=== PATIENT | female | born 1950 | race Caucasian/White ===

== ENCOUNTER 2022-09-26 15:58 | Observation (INO) | payer MEDICARE, SELFPAY ==
--- NOTE | ~2022-09-26 | CT_ITS ---
EXAMINATION: CT brain wo con DATE: 09/26/2022 19:29 INDICATION: weakness, hx of brain bleed . TECHNIQUE: Computed tomography (CT) of the head was performed without intravenous contrast. The mA wa s adjusted according to patient size. Iterative reconstruction technique was employed. The dose-lengt h product was 605.33 mGy-cm. COMPARISON: None. FINDINGS: No acute intracranial hemorrhage or extra-axial fluid collection. No hydrocephalus, mass, or herniation. No acute ischemic infarct. Unremarkable dural venous sinus attenuation. No acute osseous abnormality. The aerated spaces are clear. Moderate atrophy and chronic white matter change. Atherosclerotic intracranial calcification. Bilater al lens replacements. IMPRESSION: No acute intracranial process. Reviewed, dictated and finalized at location K.
--- NOTE | ~2022-09-26 | XR_ITS ---
EXAMINATION: XR chest 1V portable Exam Date/Time: 09/26/2022 17:55 CDT HISTORY: weakness, unsteady gait; hx of dementia/alzheimer's Comparison: None. RESULT: Lines, tubes, and devices: None. Lungs and pleura: Senescent change, otherwise clear. Cardiomediastinal silhouette: Stable. Other: No acute osseous or upper abdominal finding. Old right clavicular fracture, healed in deformi ty. IMPRESSION: No acute cardiopulmonary process. Reviewed, dictated and finalized at location K.
--- NOTE | ~2022-09-26 | MR_ITS ---
EXAMINATION: MR brain/brain stem wo/w con DATE: 09/27/2022 15:44 INDICATION: Cerebrovascular accident. Aphasia. TECHNIQUE: Magnetic resonance imaging (MRI) of the brain and brainstem was performed without and with 13 mL MultiHance intravenous contrast. COMPARISON: Head CT 09/26/2022 FINDINGS: There is no intracranial hemorrhage, acute infarction, or abnormal intracranial mass lesion . There are scattered areas of nonspecific increased T2-weighted signal intensity in the cerebral whi te matter, which is within normal limits for the patient's age. The ventricles are normal in size. Th ere is mild mucosal thickening in the ethmoid sinuses. There are likely changes of ocular lens replac ement surgeries. There is a trace right mastoid effusion. IMPRESSION: 1. Normal aging brain. Reviewed, dictated and finalized at location A. IMPRESSION: 1. Normal aging brain.
--- NOTE | ~2022-09-26 | CT_ITS ---
EXAMINATION: CTA brain carotid DATE: 09/26/2022 21:30 INDICATION: aphasia, dysarthria TECHNIQUE: Computed tomographic angiography (CTA) of the head and neck was performed with 100 mL Omni paque-350 intravenous contrast. Automated exposure control and iterative reconstruction technique wer e employed. The dose-length product was 958.12 mGy-cm. Maximum intensity projection and volume render ed 3D-reconstructions were created by the technologist on a separate workstation. COMPARISON: CT brain, same date. FINDINGS: CTA HEAD: No large vessel occlusion, aneurysm, high flow vascular malformation, nidus or extravasation. Patent cerebral veins. Symmetric parenchymal enhancement. Persistent origin of the right WATER VALVE MECHANIC. Calcific ations of the carotid siphons, without significant stenosis. CTA NECK: Aortic arch and proximal great vessels: Mild plaque at the visualized arch. Normal arch anatomy. Right common carotid, carotid bifurcation, and internal carotid artery: No plaque.There is 0% stenosi s of the proximal right internal carotid artery relative to normal distal artery lumen diameter (NASC ET criteria). Left common carotid, carotid bifurcation, and internal carotid artery: Mild calcified plaque.There is 0% stenosis of the proximal left internal carotid artery relative to normal distal artery lumen diam eter (NASCET criteria). Vertebral arteries: No significant plaque or stenosis. Left vertebral artery is dominant. Other findings: Patulous, fluid-filled esophagus. IMPRESSION: No large vessel occlusion. No significant carotid or vertebral stenosis. Reviewed, dictated and finalized at location K.
--- NOTE | ~2022-09-26 | XR_ITS ---
EXAMINATION: XR lumbar puncture diagnostic DATE: 09/28/2022 11:38 INDICATION: Autoimmune encephalitis. TECHNIQUE: The procedure including the risks, benefits, and alternatives was discussed with the patie nt. Risks discussed included spinal headache, cerebrospinal fluid leak, bleeding, and infection. The patient understood the risks and agreed to proceed. A timeout was performed to verify the patient' s name, date of , and procedure to be performed. The skin overlying the L4-L5 level was prepped and draped in usual sterile fashion. Subcutaneous 1% lidocaine was used for local anesthesia. A 20 gauge spinal needle was advanced under fluoroscopic guidance. The needle was removed and the entry s ite was cleaned and dressed. There were no immediate complications. Fluoroscopy exposure time was 0. 1 minutes. The total number of images was 1. FINDINGS: Real-time fluoroscopy demonstrates the needle at the L4-L5 level. The opening pressure was 11 cm water (Normal range is variably defined as 6-20 cm water and up to 25 cm water in obese patient s. Pressure >25 cm water is one of the modified Dandy criteria for idiopathic intracranial hypertensi on). 13 mL of clear, colorless fluid was collected in 4 tubes. IMPRESSION: 1. Successful fluoro-guided lumbar puncture. Reviewed, dictated and finalized at location A.
[2022-09-26 15:58] VITALS: BP 161/74; PULSE 69; RESP 15; TEMP 36.2; O2SAT 95
[2022-09-26 16:09] LABS: Glucose Point of Care 68 mg/dl (65-105)
[2022-09-26 17:05] VITALS: BP 118/73; PULSE 65; RESP 17; O2SAT 100
[2022-09-26 17:08] LABS: Glucose Point of Care 104 mg/dl (65-105)
--- NOTE | 2022-09-26 17:53 | ECG_ITS ---
Measurements Intervals [place] Rate: 59 P: 28 MA: 221 QRS: 26 QRSD: 81 T: 19 QT: 419 QTc: 417 Interpretive Statements SINUS BRADYCARDIA WITH FIRST DEGREE AV BLOCK WITH OCCASIONAL VENTRICULAR PREMATURE COMPLEXES NONSPECIFIC T-WAVE ABNORMALITY ABNORMAL ECG NO PREVIOUS ECG AVAILABLE FOR COMPARISON Electronically Signed On 09-27-2022 9:18:25 CDT by Lex Petersen M.D.
--- NOTE | 2022-09-26 17:55 | ED.GENADULT ---
HPI - General Adult General Chief complaint: Weakness <Aidee Zamudio PA-C - Last Filed: 09/27/22 00:20> Stated complaint: unsteady gait x 2-3 days <Aidee Zamudio PA-C - Last Filed: 09/27/22 00:20> Time Seen by Provider: 09/26/22 17:04 <Aidee Zamudio PA-C - Last Filed: 09/27/22 00:20> History of Present Illness HPI narrative: 72-year-old female with a history of a spontaneously 8 millimeter brain bleed in December, dementia, MDD with psychosis, cognitive delay reports via EMS from [facility] with her daughter/POA at bedside. Patient's daughter states that yesterday the [facility] facility reported that the patient was having an unsteady gait, worse than her usual. States today the patient asked for a wheelchair to ambulate because she was unable to, [facility] called her PCP and advised to send the patient to the ED for further evaluation. Patient's daughter reports that the patient had a spontaneous a millimeter brain bleed in December, had repeat scans 4 to 6 weeks later which showed it had reduced to 4 mm. She had an MRI performed at the time which showed a normal aging brain other than the bleed. She has established with neurosurgery at [facility] and neurology at [facility]. She was admitted to [place] 3 weeks ago for self-harm. Family states that the patient bangs her right arm when she is frustrated at times does cause fractures, states she had times becomes physically aggressive. She has been recently diagnosed with MDD with psychosis and was started on a new psychiatry medication 3 weeks ago, medication unknown. Patient's daughter states that the patient has had aphasia for the past year and a half, however it is significantly worsened the past couple of days, states she is more garbled . She also reports worsening dysarthria in the past few days as well as fatigue. Per the daughter, the patient is a DNR/DNI. She is ANO x 2 at baseline. Upon questioning the patient, she does report that she fell and hurt her head , but is unsure when this occurred. The daughter is unaware as well. Patient states she normally ambulates without a walker or assistance. The patient denies chest pain, shortness of breath, headache, vision changes, focal numbness or weakness, abdominal pain, nausea or vomiting, diarrhea, dysuria, pain anywhere, fever. <Aidee Zamudio PA-C - Last Filed: 09/27/22 00:20> Related Data Home medications: Home Medications Medication Instructions Recorded Confirmed atorvastatin 20 mg tablet 20 mg PO DAILY 09/27/22 09/27/22 buspirone 5 mg tablet 5 mg PO BID 09/27/22 09/27/22 donepezil 10 mg tablet 10 mg PO HS 09/27/22 09/27/22 fluoxetine 20 mg capsule 20 mg PO DAILY 09/27/22 09/27/22 losartan 50 mg-hydrochlorothiazide 1 tablet PO DAILY 09/27/22 09/27/22 12.5 mg tablet <GUIDO Titus Last Filed: 09/27/22 00:20> Allergies/adverse reactions: Allergies Allergy/AdvReac Type Severity Reaction Status Date / Time cefuroxime [From Ceftin] AdvReac Swelling Verified 09/26/22 16:11 of Lip/Tongue/Throat lisinopril AdvReac Swelling Verified 09/26/22 16:11 of Lip/Tongue/Throat <Aidee Zamudio PA-C - Last Filed: 09/27/22 00:20> Review of Systems Review of Systems: CONSTITUTIONAL: Denies fever, chills EYES: Denies visual changes, redness, or discharge. ENT: Denies rhinorrhea, congestion, sore throat, or otalgia. CARDIOVASCULAR: Denies chest pain, palpitations, or edema. RESPIRATORY: Denies cough or dyspnea. GASTROINTESTINAL: Denies abdominal pain, nausea, vomiting, or diarrhea. GENITOURINARY: Denies dysuria or hematuria. SKIN: Denies rash or itching. MUSCULOSKELETAL: Denies back pain, joint pain, or myalgia. NEUROLOGIC: See HPI PSYCHIATRIC: Denies anxiety or depression. <Aidee Zamudio PA-C - Last Filed: 09/27/22 00:20> [facility] Family History Family History: Family History (Updated 09/27/22 @ 02:45 by Margarita Yan
[2022-09-26 18:18] LABS: Basophils Percent Auto 0.3 % (0.2-1.2); Eosinophils Absolute Auto 0.1 K/mm3 (0-0.3); Eosinophils Percent Auto 1.2 % (0-4.4); Hematocrit 39.3 % (37.0-47.0); Hemoglobin 12.9 g/dL (12.0-15.0); Immature Granulocyte Absolute 0.02 K/mm3 (0.00-0.031); Immature Granulocyte Percent A 0.2 % (0-0.5); Lymphocytes Absolute Auto 2.86 K/mm3 (0.9-3.2); Lymphocytes Percent Auto 31.6 % (18.3-44.2); Mean Corpuscular HGB Conc 32.8 g/dl (32-36); Mean Corpuscular Hemoglobin 31.9 pg (26-34); Mean Platelet Volume 10.8 fl (7.4-10.4); Monocytes Absolute Auto 0.8 K/mm3 (0.1-0.6); Monocytes Percent Auto 8.3 % (2.6-8.5); Neutrophils Absolute Auto 5.3 K/mm3 (1.3-6.7); Neutrophils Percent Auto 58.4 % (45.5-73.1); Platelet Count Result 215 k/mm3 (150-375); Red Blood Count 4.05 M/mm3 (4.2-5.4); Red Cell Distribution Width 12.7 % (11.5-14.5); White Blood Count 9.1 K/mm3 (4.5-10.0)
[2022-09-26 18:22] LABS: Alanine Aminotransferase 26 U/L (6-35); Albumin Level 4.1 g/dL (3.5-5.1); Alkaline Phosphatase 75 U/L (38-126); Anion Gap 6 mmol/L (8-16); Aspartate Amino Transferase 35 U/L (14-36); Bilirubin,Total 0.3 mg/dL (0.2-1.3); Blood Urea Nitrogen 17 mg/dL (7-17); Calcium 9.4 mg/dL (8.4-10.2); Carbon Dioxide 31 mmol/L (22-30); Chloride 101 mmol/L (98-107); Estimated CRCL calculation 55 ml/min; Estimated Glomerular Filt Rate > 60; Glucose 100 mg/dL (65-110); Potassium 3.5 mmol/L (3.4-5.0); Sodium 138 mmol/L (137-145)
[2022-09-26 18:30] LABS: INR 0.9
[2022-09-26 18:31] LABS: Partial Thromboplastin Time 27.6 SECONDS (22.3-36.8)
[2022-09-26 18:33] LABS: Troponin I < 0.012 ng/mL (0.000-0.034)
[2022-09-26 19:58] VITALS: BP 132/82; PULSE 60; RESP 17; O2SAT 99
[2022-09-26 20:06] LABS: Appearance Urine Clear (Clear); Bacteria Urine None Seen /hpf; Bilirubin Urine Negative (Negative); Blood Urine Negative (Negative); Color Urine Yellow (Yellow); Glucose Urine UA Negative (Negative); Ketones Urine Negative (Negative); Leukocyte Esterase Ur Trace LEU/UL (Negative); Nitrate Urine Negative (Negative); Non Pathogenic Casts 0-2; Protein Urine Negative (Negative); RBC Urine 0-2 /hpf (0-2); Specific Grav Ur 1.012 (1.001-1.035); Squamous Epithelial Cell Urine None seen /hpf (Few); WBC Urine 0-5 /hpf; pH Urine 7.5 (5.0-9.0)
[2022-09-26 20:08] LABS: Add Urine Microscopic? YES
[2022-09-26 20:19] LABS: Amphetamine Screen Urine Negative (Negative); Barbiturate Screen Urine Negative (Negative); Benzodiazepines Screen Urine Negative (Negative); Cannabinoid Screen Urine Negative (Negative); Cocaine Screen Urine Negative (Negative); Methadone Screen Urine Negative (Negative); Opiate Screen Urine Negative (Negative); Phencyclidine Screen Urine Negative (Negative)
[2022-09-26 22:08] VITALS: BP 132/71; PULSE 54; RESP 15; O2SAT 97
--- NOTE | 2022-09-26 23:12 | PM.IMHP ---
H&P: HPI History of Present Illness Date/Time: 09/26/22 23:12 Chief Complaint: speech disturbance Narrative: This is a 72-year-old female with past medical history significant for brain bleed, cognitive delay, dysarthria. Patient lives at [facility] was brought to the emergency room for evaluation due to unsteady gait and worsening of speech disturbance. In emergency room preliminary workup was essentially nonrevealing. Patient is unable to give much history but she knows that she is at [facility] and she is here because of her speech. Preliminary workup was essentially nonrevealing. At the time of my visit patient symptoms had resolved. EXAMINATION:? XR chest 1V portable Exam Date/Time:? 09/26/2022 17:55 CDT HISTORY: weakness, unsteady gait; hx of dementia/alzheimer's ? Comparison:? None. RESULT: Lines, tubes, and devices:? None. Lungs and pleura:? Senescent change, otherwise clear. Cardiomediastinal silhouette:? Stable. Other:? No acute osseous or upper abdominal finding. Old right clavicular fracture, healed in deformity. ? IMPRESSION: No acute cardiopulmonary process. EXAMINATION: CT brain wo con DATE: 09/26/2022 19:29 INDICATION: weakness, hx of brain bleed . TECHNIQUE: Computed tomography (CT) of the head was performed without intravenous contrast. The mA was adjusted according to patient size. Iterative reconstruction technique was employed. The dose-length product was 605.33 mGy-cm. COMPARISON: None. FINDINGS: No acute intracranial hemorrhage or extra-axial fluid collection. No hydrocephalus, mass, or herniation. No acute ischemic infarct. Unremarkable dural venous sinus attenuation. No acute osseous abnormality. The? aerated spaces are clear. Moderate atrophy and chronic white matter change. Atherosclerotic intracranial calcification. Bilateral lens replacements. IMPRESSION:? No acute intracranial process. EXAMINATION: CTA brain carotid DATE: 09/26/2022 21:30 INDICATION: aphasia, dysarthria TECHNIQUE: Computed tomographic angiography (CTA) of the head and neck was performed with 100 mL Omnipaque-350 intravenous contrast. Automated exposure control and iterative reconstruction technique were employed. The dose-length product was 958.12 mGy-cm. Maximum intensity projection and volume rendered 3D-reconstructions were created by the technologist on a separate workstation. COMPARISON: CT brain, same date. FINDINGS: CTA HEAD: No large vessel occlusion, aneurysm, high flow vascular malformation, nidus or extravasation. Patent cerebral veins. Symmetric parenchymal enhancement. Persistent origin of the right ROPE CUTTER. Calcifications of the carotid siphons, without significant stenosis. CTA NECK: Aortic arch and proximal great vessels: Mild plaque at the visualized arch. Normal arch anatomy. Right common carotid, carotid bifurcation, and internal carotid artery: No plaque.There is 0% stenosis of the proximal right internal carotid artery relative to normal distal artery lumen diameter (NASCET criteria).? Left common carotid, carotid bifurcation, and internal carotid artery: Mild calcified plaque.There is 0% stenosis of the proximal left internal carotid artery relative to normal distal artery lumen diameter (NASCET criteria). Vertebral arteries: No significant plaque or stenosis. Left vertebral artery is dominant. Other findings: Patulous, fluid-filled esophagus. IMPRESSION: No large vessel occlusion. Review of Systems Review of Systems: Speech disturbance ROS unobtainable: Yes unobtainable due to medical condition ( continue delay) [facility] Family History Family History (Updated 09/27/22 @ 02:45 by Margarita Fernandez RN) Other Unknown family medical history Social History Social History Smoking packs per day: 0.5 Smoking cigarettes per day: 10.0 Smoking status: F
[2022-09-27] VITALS (9 sets, daily range): BP systolic 89–134; BP diastolic 50–72; PULSE 56–91; RESP 14–16; TEMP 36–36.6; O2SAT 97–100
--- NOTE | 2022-09-27 01:48 | ADMGEN ---
This patient, Dana Emmanuel, was admitted to [facility] Surg Room 306-02. Patient/family oriented to hospital policies and general routines including ID bracelet, bed and alarms, visiting hours, pain management, procedures, bathroom and other care routines, personal items, smoking policy, room service/diet, and visiting hours. Information on how to activate the Rapid Response Team has been discussed. Patient/Family are encouraged to report perceived risks to care and to ask questions if they do not understand what they are told or what they should do.
--- NOTE | 2022-09-27 07:50 | PM.IMPN ---
Progress Note: A&P Assessment and Plan (1) Aphasia: Code(s): R47.01 - Aphasia Status: Acute Assessment and Plan: admit to [place] neurochecks q.4 hours CTA reviewed MRI in a.m., awaiting results neurology consult appreciate recommendations Obtain MRI brain w/o contrast Check TSH, Folate, B12 level, GQ1b antibody If MRI is unrevealing, consider LP for infectious/autoimmune etiology and sending for autoimmune encephalitis panel (2) Dysarthria: Code(s): R47.1 - Dysarthria and anarthria Status: Acute Assessment and Plan: chronic (3) Weakness generalized: Code(s): R53.1 - Weakness Status: Acute Assessment and Plan: no focal deficit PT OT consult Low SBP this afternoon. Will hold further antihypertensives and give 1 x 500 ml bolus now. Subjective Date/time seen: 09/27/22 07:50 Interval history: Narrative: ?This is a 72-year-old female with past medical history significant for brain bleed, cognitive delay, dysarthria.? Patient lives at [facility] was brought to the emergency room for evaluation due to unsteady gait and worsening of? speech disturbance.? In emergency room preliminary workup was essentially nonrevealing.? Patient is unable to give much history but she knows that she is at [facility] and she is here because of? her speech.? Preliminary workup was essentially nonrevealing.? At the time of my visit patient symptoms had resolved. Interval history: 09/27: Patient seen at bedside appearing comfortable and in no acute distress. She says that she is here because of weakness. She does not feel like her speech is changed. Unsure of her baseline but her responses are delayed with garbled speech at times. She is A&O x4 for my assessment. Cranial nerves 2-12 are intact. She does have nystagmus. She denies pain, chest pain, shortness of breath, nausea, vomiting, or diarrhea. Awaiting MRI brain w/o contrast per neurology recommendations. 1500-Nursing called with a low BP of 89/56 (67), HR 63. Asymptomatic as far as they can tell given patient's intermittent confusion. Reports that patient has been eating and drinking with tech encouragement. Will give 1 x bolus of 500 ml now. Review of Systems Review of Systems: All systems reviewed & are unremarkable except as noted in HPI and below Exam Narrative: General: well-nourished, elderly appearing 72-year-old female, sitting up in bed, comfortable, NARD Neuro: awake, alert and oriented x4, speech delayed and garbled at times, no focal neuro deficits noted HEENMT: normocephalic, atraumatic, EOMI, nystagmus present, sclerae anicteric, moist oral mucosa Respiratory: Clear to auscultation bilaterally without crackles, rhonchi or wheezes, nonlabored breathing Cardio: regular rate, regular rhythm with S1-S2 Abdomen: nondistended, normoactive bowel sounds, soft, nontender to palpation Extremities: no edema, erythema, or tenderness to palpation, DP pulses 2+ bilaterally Skin: no rashes or lesions, warm and dry Psych: appropriate mood and affect Objective Data Vital Signs Vital Signs: Vital Signs - 24 hr 09/26/22 15:58 09/26/22 17:05 09/26/22 19:58 Temperature 97.1 F L Pulse Rate 69 65 60 Respiratory Rate 15 17 17 Blood Pressure 161/74 H 118/73 132/82 Pulse Oximetry 95 100 99 Oxygen Delivery Room Air 09/26/22 22:08 09/27/22 01:31 09/27/22 04:28 Temperature Pulse Rate 54 L 59 L 59 L Respiratory Rate 15 16 16 Blood Pressure 132/71 134/71 Pulse Oximetry 97 98 98 Oxygen Delivery Room Air 09/27/22 01:45 09/27/22 06:00 Temperature 96.8 F L 96.8 F L Pulse Rate 56 L 72 Respiratory Rate 14 14 Blood Pressure 130/72 116/63 Pulse Oximetry 100 98 Oxygen Delivery Intake/Output Intake/Output: Intake & Output 09/24/22 09/25/22 09/26/22 09/27/22 23:59 23:59 23:59 23:59 Intake Total 50 Balance 50 Meds/Results Medications: Active Medications G
[2022-09-27 08:45] LABS: Basophils Percent Auto 0.3 % (0.2-1.2); Eosinophils Absolute Auto 0.1 K/mm3 (0-0.3); Eosinophils Percent Auto 1.1 % (0-4.4); Hemoglobin 13.3 g/dL (12.0-15.0); Immature Granulocyte Absolute 0.01 K/mm3 (0.00-0.031); Immature Granulocyte Percent A 0.2 % (0-0.5); Lymphocytes Absolute Auto 2.14 K/mm3 (0.9-3.2); Lymphocytes Percent Auto 32.5 % (18.3-44.2); Mean Corpuscular HGB Conc 33.3 g/dl (32-36); Mean Corpuscular Volume 96.2 fl (80-100); Mean Platelet Volume 10.2 fl (7.4-10.4); Monocytes Absolute Auto 0.6 K/mm3 (0.1-0.6); Monocytes Percent Auto 9.4 % (2.6-8.5); Neutrophils Absolute Auto 3.7 K/mm3 (1.3-6.7); Neutrophils Percent Auto 56.5 % (45.5-73.1); Platelet Count Result 214 k/mm3 (150-375); Red Blood Count 4.16 M/mm3 (4.2-5.4); Red Cell Distribution Width 12.8 % (11.5-14.5); White Blood Count 6.6 K/mm3 (4.5-10.0)
[2022-09-27 08:59] LABS: Alanine Aminotransferase 25 U/L (6-35); Alkaline Phosphatase 76 U/L (38-126); Anion Gap 6 mmol/L (8-16); Aspartate Amino Transferase 33 U/L (14-36); Bilirubin,Total 0.6 mg/dL (0.2-1.3); Blood Urea Nitrogen 12 mg/dL (7-17); Calcium 9.3 mg/dL (8.4-10.2); Carbon Dioxide 29 mmol/L (22-30); Chloride 101 mmol/L (98-107); Estimated CRCL calculation 55 ml/min; Estimated Glomerular Filt Rate > 60; Glucose 83 mg/dL (65-110); Potassium 3.7 mmol/L (3.4-5.0); Sodium 136 mmol/L (137-145)
--- NOTE | 2022-09-27 09:21 | WPDNEURCNPN ---
Assessment and Plan Assessment and plan (1) Aphasia: Code(s): R47.01 - Aphasia Status: Acute (2) Dysarthria: Code(s): R47.1 - Dysarthria and anarthria Status: Acute (3) Weakness generalized: Code(s): R53.1 - Weakness Status: Acute Plan Dana Emmanuel is a 72 year old female with a history of prior brain bleed, dementia, psychosis, presenting due to worsening gait and speech changes. Etiology is unclear. There is no obvious underlying infection. She is not on any sedating medications and she lives in a usp, so polypharmacy seems less likely. Considering stroke. Mental status appears to be at baseline. Also considering [place] encephalitis. - Obtain MRI brain w/o contrast - Check TSH, Folate, B12 level, GQ1b antibody - If MRI is unrevealing, consider LP for infectious/autoimmune etiology and sending for autoimmune encephalitis panel Consult date: 09/27/22 Reason for consult: Altered mental status, aphasia HPI: Dana Emmanuel is a 72 year old female with a history of prior brain bleed, dementia, psychosis, presenting due to worsening gait and speech changes. Patient lives at [facility]. On day of presentation, she was having more difficulty walking so she asked for a wheelchair. At some point she reported that she fell and hit her head, but family was not aware of this and patient is not able to give more details about this either. At baseline she has aphasia, but family feels that her speech is more garbled and her dysarthria is worse as well. At baseline she is AOx2. Due to the change in her walking ability and mental status, she was brought to [place] ED. Work-up was mostly unrevealing. UA was negative for UTI. UDS was negative as well. CT head was read as moderate atrophy but no acute changes. CTA brain/carotid was negative for stenosis or occlusion. Patient was admitted for further work-up of her symptoms. Patient reports that her difficulty ambulating has only been going on for about a day or so. She feels that she is still not back to baseline with her walking. She denies any numbness or weakness in the lower extremities. Review of Systems Constitutional: Constitutional: Denies chills, Denies fever(s) and Denies weight loss Eyes: Eyes: Denies diplopia and Denies loss of vision ENT: Denies dizziness, Denies hearing loss and Denies tinnitus Cardiovascular: Cardiovascular: Denies chest pain, Denies syncope and Denies dyspnea Respiratory: Respiratory: Denies cough, Denies dyspnea and Denies wheezing Gastrointestinal: Gastrointestinal: Denies abdominal pain, Denies change in bowel habits and Denies vomiting Genitourinary: Genitourinary: Denies urinary incontinence Musculoskeletal: Musculoskeletal: Denies arthralgias and Denies joint swelling Integumentary/Breasts: Skin/Breast: Denies new lesions and Denies rash Neurologic: Reports as per HPI, Denies dizziness, Denies syncope and Denies loss of vision Psychiatric: Psychiatric: Reports anxiety and Reports depression Endocrine: Endocrine: Denies cold intolerance and Denies heat intolerance Hematologic/Lymphatic: Hematologic/Lymphatic: Denies easy bleeding and Denies easy bruising Allergic/Immunologic: Allergic/Immunologic: Denies no additional allergic/immunologic complaints and Denies wheezing [facility] Family History Family History (Updated 09/27/22 @ 02:45 by Margarita Fernandez RN) Other Unknown family medical history Social History Social History Smoking packs per day: 0.5 Smoking cigarettes per day: 10.0 Smoking status: Former smoker Tobacco type: cigarettes Alcohol intake: former Substance use: never Lack of Transportation: No Lack of Food: Never True Current Housing: I Have Housing Concerned About Future Housing: No Difficulty Paying Gas/Electric Bills: No Difficulty Paying for Meds: No Currently Unemploy
[2022-09-27] MEDS: LOSARTAN POTASSIUM 50 MG TABLET PO (10:12)
[2022-09-27] MEDS: ATORVASTATIN 20 MG TABLET PO (10:12)
[2022-09-27] MEDS: ASPIRIN 81 MG ENTERIC TABLET PO (10:12)
[2022-09-27] MEDS: busPIRone HCL 5 MG TABLET PO ×2 (10:12→18:14)
[2022-09-27] MEDS: hydroCHLOROthiazide 12.5 MG CAPSULE PO (10:12)
[2022-09-27] MEDS: FLUoxetine HCL 20 MG CAPSULE PO (10:12)
--- NOTE | 2022-09-27 12:11 | PCPTNOTE ---
On 09/27/22, the student, BHAVIK Kessler, provided care and completed [facility] documentation on this patient. I have reviewed the student's documentation and agree with the findings.
[2022-09-27] MEDS: SODIUM CHLORIDE 0.9% IV 500 ML IV CONT (16:56)
--- NOTE | 2022-09-27 19:51 | PC.NURSE ---
Pt has been confused today. Pt had MRI and tolerated well. Pt denies any pain and expresses no needs at this time. Pt continued to be monitored for any changes in status. Pt blood pressure was low, provider notified and 500 mL bolus was started.
[2022-09-27] MEDS: DONEPEZIL HCL 10 MG TABLET PO (21:32)
[2022-09-28] VITALS (8 sets, daily range): BP systolic 100–143; BP diastolic 51–71; PULSE 45–75; RESP 12–19; TEMP 35.8–36.9; O2SAT 95–99
[2022-09-28 06:19] LABS: Basophils Percent Auto 0.4 % (0.2-1.2); Eosinophils Absolute Auto 0.1 K/mm3 (0-0.3); Eosinophils Percent Auto 1.7 % (0-4.4); Hematocrit 37.9 % (37.0-47.0); Hemoglobin 12.3 g/dL (12.0-15.0); Immature Granulocyte Absolute 0.02 K/mm3 (0.00-0.031); Immature Granulocyte Percent A 0.3 % (0-0.5); Lymphocytes Absolute Auto 2.53 K/mm3 (0.9-3.2); Lymphocytes Percent Auto 36.9 % (18.3-44.2); Mean Corpuscular HGB Conc 32.5 g/dl (32-36); Mean Corpuscular Hemoglobin 31.2 pg (26-34); Mean Corpuscular Volume 96.2 fl (80-100); Monocytes Absolute Auto 0.6 K/mm3 (0.1-0.6); Monocytes Percent Auto 8.6 % (2.6-8.5); Neutrophils Absolute Auto 3.6 K/mm3 (1.3-6.7); Neutrophils Percent Auto 52.1 % (45.5-73.1); Red Blood Count 3.94 M/mm3 (4.2-5.4); Red Cell Distribution Width 12.6 % (11.5-14.5); White Blood Count 6.9 K/mm3 (4.5-10.0)
[2022-09-28 06:36] LABS: Alanine Aminotransferase 23 U/L (6-35); Albumin Level 3.7 g/dL (3.5-5.1); Alkaline Phosphatase 59 U/L (38-126); Anion Gap 4 mmol/L (8-16); Aspartate Amino Transferase 32 U/L (14-36); Bilirubin,Total 0.5 mg/dL (0.2-1.3); Blood Urea Nitrogen 17 mg/dL (7-17); Calcium 8.7 mg/dL (8.4-10.2); Carbon Dioxide 30 mmol/L (22-30); Chloride 102 mmol/L (98-107); Estimated CRCL calculation 55 ml/min; Estimated Glomerular Filt Rate > 60; Glucose 79 mg/dL (65-110); Potassium 3.5 mmol/L (3.4-5.0); Sodium 136 mmol/L (137-145)
[2022-09-28 07:35] LABS: Folic Acid 17.5 ng/mL (2.76->20)
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
[2022-09-28] MEDS: busPIRone HCL 5 MG TABLET PO ×2 (08:49→16:43)
[2022-09-28] MEDS: ATORVASTATIN 20 MG TABLET PO (08:49)
[2022-09-28] MEDS: ASPIRIN 81 MG ENTERIC TABLET PO (08:49)
[2022-09-28] MEDS: LOSARTAN POTASSIUM 50 MG TABLET PO (08:49)
[2022-09-28] MEDS: FLUoxetine HCL 20 MG CAPSULE PO (08:49)
--- NOTE | 2022-09-28 11:28 | PCOTNOTE ---
Patient just returned from having a procedure done (spinal tap) and is required to lay flat for 2 hours. Per RN, can try back at a later time.
[2022-09-28 12:06] LABS: Total Protein CSF 54 mg/dL (12-60)
[2022-09-28 12:11] LABS: Glucose CSF 58 mg/dL (40-70)
[2022-09-28 12:16] LABS: Appearance CSF Clear (Clear); CSF source CSF; Color CSF Colorless (Colorless); Nucleated Cell CSF 2 /uL (0-5); Red Blood Cell CSF 0 (0-2)
[2022-09-28 12:21] LABS: Monocytes CSF 6 % (15-45)
[2022-09-28 12:22] LABS: Lymphocytes CSF 94 % (40-80)
--- NOTE | 2022-09-28 13:45 | PC.NURSE ---
1220 Spinal fluis results for few wbc and no organism seen called to Naty Alvares OPERATIONS TECHNICIAN
[2022-09-28] MEDS: ACETAMINOPHEN 325 MG TABLET 650 MG PO (13:58)
--- NOTE | 2022-09-28 16:07 | P.TS_ITS ---
Transfer Discharge Sum: Prov Provider Date of admission: 09/26/22 23:14 Primary care physician: Eric Craft, PA-C Admitting clinician: Christian Dawn MD Consults: 09/26/22 23:15 Consult to Physician Routine Comment: Spoke w/ 0809/27 (, [place]) Consulting Provider: Christine Wilson scallop raker/MD group to consult: Dr. Wilson Reason for consultation: Concern for CVA Has provider been notified: Yes Receiving physician/facility: [facility] DS: Admitting Diagnosis Discharge Date 09/28/22 Admitting Diagnosis Aphasia DS: Discharge Diagnosis Discharge Diagnosis (1) Aphasia: Code(s): R47.01 - Aphasia Status: Acute Assessment and Plan: * admit to med tele * neurochecks q.4 hours * CTA reviewed * MRI shows normal aging brain * neurology consult appreciate recommendations * Obtain MRI brain w/o contrast * TSH and folate normal. Vitamin B12 mildly elevated at 950. GQ1b antibody pending. * If MRI is unrevealing, consider LP for infectious/autoimmune etiology and sending for autoimmune encephalitis panel. (2) Dysarthria: Code(s): R47.1 - Dysarthria and anarthria Status: Acute Assessment and Plan: * chronic. Hx of brain bleed, cognitive disfunction (3) Weakness generalized: Code(s): R53.1 - Weakness Status: Acute Assessment and Plan: * Per daughter, patient is normally independent and lives at assisted living. She does work with therapy at her assisted living. * PT OT consult. Rec's appreciated. SNF is recommended. * Low SBP this afternoon. Will hold further antihypertensives and give 1 x 500 ml bolus now. * Low blood pressure resolved. SBP 140s Plan LP essentially normal. No known cause of encephalitis and no neurology on service until Sunday. Contacted [facility] who has accepted the patient for transfer. Transfer Discharge Sum: Med Medications Active and Home Medications: Home Medications atorvastatin 20 mg tablet 20 mg PO DAILY 09/27/22 [History Confirmed 09/27/22] buspirone 5 mg tablet 5 mg PO BID 09/27/22 [History Confirmed 09/27/22] donepezil 10 mg tablet 10 mg PO HS 09/27/22 [History Confirmed 09/27/22] fluoxetine 20 mg capsule 20 mg PO DAILY 09/27/22 [History Confirmed 09/27/22] losartan 50 mg-hydrochlorothiazide 12.5 mg tablet 1 tablet PO DAILY 09/27/22 [History Confirmed 09/27/22] Active Medications Acetaminophen (Acetaminophen 325 Mg Tablet) 650 mg PO Q4H PRN PRN Reason: Mild Pain (1-3) or Fever Last Admin: 09/28/22 13:58 Dose: 650 mg Aspirin (Aspirin 81 Mg Enteric Tablet) 81 mg PO [facility] Last Admin: 09/28/22 08:49 Dose: 81 mg Atorvastatin Calcium (Atorvastatin 20 Mg Tablet) 20 mg PO DAILY [facility] Last Admin: 09/28/22 08:49 Dose: 20 mg Buspirone HCl (Buspirone Hcl 5 Mg Tablet) 5 mg PO BID [facility] Last Admin: 09/28/22 08:49 Dose: 5 mg Donepezil HCl (Donepezil Hcl 10 Mg Tablet) 10 mg PO [facility] Last Admin: 09/27/22 21:32 Dose: 10 mg Fluoxetine HCl (Fluoxetine Hcl 20 Mg Capsule) 20 mg PO DAILY [facility] Last Admin: 09/28/22 08:49 Dose: 20 mg Hydrochlorothiazide (Hydrochlorothiazide 12.5 Mg Capsule) 12.5 mg PO [facility] Last Admin: 09/27/22 10:12 Dose: 12.5 mg Losartan Potassium (Losartan Potassium 50 Mg Tablet) 50 mg PO [facility] Last Admin: 09/28/22 08:49 Dose: 50 mg Transfer Discharge Sum: H
--- NOTE | 2022-09-28 16:07 | PM.TDS ---
Transfer Discharge Sum: Prov Provider Date of admission: 09/26/22 23:14 Primary care physician: Eric Craft, PA-C Admitting clinician: Christian Dawn MD Consults: 09/26/22 23:15 Consult to Physician Routine Comment: Spoke w/ 0809/27 (, [place]) Consulting Provider: Christine Wilson supervisor liquid yeast/MD group to consult: Dr. Wilson Reason for consultation: Concern for CVA Has provider been notified: Yes Receiving physician/facility: [facility] DS: Admitting Diagnosis Discharge Date 09/28/22 Admitting Diagnosis Aphasia DS: Discharge Diagnosis Discharge Diagnosis (1) Aphasia: Code(s): R47.01 - Aphasia Status: Acute Assessment and Plan: admit to [facility] neurochecks q.4 hours CTA reviewed MRI shows normal aging brain neurology consult appreciate recommendations Obtain MRI brain w/o contrast TSH and folate normal. Vitamin B12 mildly elevated at 950. GQ1b antibody pending. If MRI is unrevealing, consider LP for infectious/autoimmune etiology and sending for autoimmune encephalitis panel. (2) Dysarthria: Code(s): R47.1 - Dysarthria and anarthria Status: Acute Assessment and Plan: chronic. Hx of brain bleed, cognitive disfunction (3) Weakness generalized: Code(s): R53.1 - Weakness Status: Acute Assessment and Plan: Per daughter, patient is normally independent and lives at assisted living. She does work with therapy at her assisted living. PT OT consult. Rec's appreciated. SNF is recommended. Low SBP this afternoon. Will hold further antihypertensives and give 1 x 500 ml bolus now. Low blood pressure resolved. SBP 140s Plan LP essentially normal. No known cause of encephalitis and no neurology on service until Sunday. Contacted [facility] who has accepted the patient for transfer. Transfer Discharge Sum: Med Medications Active and Home Medications: Home Medications atorvastatin 20 mg tablet 20 mg PO DAILY 09/27/22 [History Confirmed 09/27/22] buspirone 5 mg tablet 5 mg PO BID 09/27/22 [History Confirmed 09/27/22] donepezil 10 mg tablet 10 mg PO HS 09/27/22 [History Confirmed 09/27/22] fluoxetine 20 mg capsule 20 mg PO DAILY 09/27/22 [History Confirmed 09/27/22] losartan 50 mg-hydrochlorothiazide 12.5 mg tablet 1 tablet PO DAILY 09/27/22 [History Confirmed 09/27/22] Active Medications Acetaminophen (Acetaminophen 325 Mg Tablet) 650 mg PO Q4H PRN PRN Reason: Mild Pain (1-3) or Fever Last Admin: 09/28/22 13:58 Dose: 650 mg Aspirin (Aspirin 81 Mg Enteric Tablet) 81 mg PO QAM [facility] Last Admin: 09/28/22 08:49 Dose: 81 mg Atorvastatin Calcium (Atorvastatin 20 Mg Tablet) 20 mg PO DAILY [facility] Last Admin: 09/28/22 08:49 Dose: 20 mg Buspirone HCl (Buspirone Hcl 5 Mg Tablet) 5 mg PO BID [facility] Last Admin: 09/28/22 08:49 Dose: 5 mg Donepezil HCl (Donepezil Hcl 10 Mg Tablet) 10 mg PO HS [facility] Last Admin: 09/27/22 21:32 Dose: 10 mg Fluoxetine HCl (Fluoxetine Hcl 20 Mg Capsule) 20 mg PO DAILY [facility] Last Admin: 09/28/22 08:49 Dose: 20 mg Hydrochlorothiazide (Hydrochlorothiazide 12.5 Mg Capsule) 12.5 mg PO QAM [facility] Last Admin: 09/27/22 10:12 Dose: 12.5 mg Losartan Potassium (Losartan Potassium 50 Mg Tablet) 50 mg PO QAM [facility] Last Admin: 09/28/22 08:49 Dose: 50 mg Transfer Discharge Sum: Hosp Hospital Course Hospital course: Interval history: Narrative: ?This is a 72-year-old female with past medical history significant for brain bleed, cognitive delay, dysarthria.? Patient lives at [facility] was brought to the emergency room for evaluation due to unsteady gait and worsening of? speech disturbance.? In emergency room preliminary workup was essentially nonrevealing.? Patient is unable to give much history but she knows that she is at [facility] and she is here because of? her speech.? Preliminary workup was essentially nonrevealing.? At the time of my visit patient carrie
[2022-09-28 17:31] LABS: Erythrocyte Sedimentation Rate 17 mm/hr (0-20)
[2022-10-07 17:52] LABS: GM-1 Ab (IgG) <1:800 titer (<1:800); GM-1 Ab (IgM) <1:800 titer (<1:800)
[2022-10-10 13:34] LABS: Reference Lab Test Result <1:100
== END 2022-09-28 18:33 | disposition short-term general hospital (02) ==
LOC: ANHED 20:50 → ANH3MEDSUR 09-27 00:22
PROVIDERS: Nurse Practitioner Acute Care; Student in an Organized Health Care Education/Training Program; Admitting Provider Internal Medicine; Emergency Provider Physician Assistant; PCP Physician Assistant; Visit Provider Internal Medicine
DX: R47.01 Aphasia (principal); R47.1 Dysarthria and anarthria; R53.1 Weakness; G30.9 Alzheimer's disease, unspecified; F02.80 Dementia in other diseases classified elsewhere, unspecified severity, without behavioral disturbance, psychotic disturbance, mood disturbance, and anxiety; Z66 Do not resuscitate; Z87.891 Personal history of nicotine dependence; Z79.899 Other long term (current) drug therapy
CPT/HCPCS: 36415; 62328; 70450; 70496; 70498; 70553; 71045; 80053; 80307; 81001; 82607; 82746; 82945; 82948; 83520; 83605; 84157; 84443; 84484; 85025; 85610; 85652; 85730; 87070; 88108; 89051; 93005; 97161; 97165; 97530; 97535; 99285; A9270; A9577; G0378; J7040; Q9967

== ENCOUNTER 2022-10-06 23:03 | Emergency (ER) | payer MEDICARE, SELFPAY ==
--- NOTE | ~2022-10-06 | XR_ITS ---
EXAMINATION: XR knee RT 3V DATE: 10/07/2022 04:05 INDICATION: Right knee pain. TECHNIQUE: 3 views of right knee were obtained. COMPARISON: None. FINDINGS: Bone alignment is normal. No fracture. There is mild tricompartmental osteoarthritis. There is chondrocalcinosis of the menisci. There is a moderate-sized knee joint effusion. IMPRESSION: 1. Mild right knee osteoarthritis. 2. Moderate-sized right knee joint effusion. Reviewed, dictated and finalized at location A.
--- NOTE | ~2022-10-06 | XR_ITS ---
EXAMINATION: XR ankle LT min 3V DATE: 10/07/2022 04:05 INDICATION: Left ankle pain. TECHNIQUE: 4 views of left ankle were obtained. COMPARISON: None. FINDINGS: Bone alignment is normal. No fracture. There is mild midfoot osteoarthritis. There is an en thesophyte at plantar aspect of calcaneal tuberosity. IMPRESSION: 1. Mild midfoot osteoarthritis. Reviewed, dictated and finalized at location A.
[2022-10-06 23:06] VITALS: BP 107/60; PULSE 85; RESP 18; TEMP 36.7; O2SAT 100
[2022-10-07] VITALS (8 sets, daily range): BP systolic 102–131; BP diastolic 58–60; PULSE 65–78; RESP 15–20; TEMP 36.7; O2SAT 95–100
--- NOTE | 2022-10-07 05:01 | ED.GENADULT ---
HPI - General Adult General Chief complaint: Extremity Injury, Lower Stated complaint: leg pain Time Seen by Provider: 10/07/22 03:27 History of Present Illness HPI narrative: Patient 72-year-old female who presents the emergency department with chief complaint of lower extremity pain. Patient was recently admitted to our facility then transferred to [facility] and found to essentially have worsening dementia the patient was discharged back to her assisted living facility 2 days ago and today was complaining of pain in her legs. The patient ambulates using a combination of wheelchair and multiple individuals assisting her doing a walker. The patient tonight missed her call button so that her legs were hurting patient reports no fall staff reports no falls no trauma and reported no signs of injury whenever she was found. Related Data Home Medications Medication Instructions Recorded Confirmed atorvastatin 20 mg tablet 20 mg PO DAILY 09/27/22 09/27/22 buspirone 5 mg tablet 5 mg PO BID 09/27/22 09/27/22 donepezil 10 mg tablet 10 mg PO HS 09/27/22 09/27/22 fluoxetine 20 mg capsule 20 mg PO DAILY 09/27/22 09/27/22 losartan 50 mg-hydrochlorothiazide 1 tablet PO DAILY 09/27/22 09/27/22 12.5 mg tablet Allergies Allergy/AdvReac Type Severity Reaction Status Date / Time cefuroxime [From Ceftin] AdvReac Swelling Verified 09/26/22 16:11 of Lip/Tongue/Throat lisinopril AdvReac Swelling Verified 09/26/22 16:11 of Lip/Tongue/Throat Review of Systems Review of Systems: A 10 system review of systems was completed on the patient and is negative except for what is stated in the HPI. Nursing and ancillary documentation was reviewed. [facility] Family History Family History Other Unknown family medical history Social History Social History Smoking packs per day: 0.5 Smoking cigarettes per day: 10.0 Smoking status: Former smoker Tobacco type: cigarettes Alcohol intake: former Substance use: never Lack of Transportation: No Lack of Food: Never True Current Housing: I Have Housing Concerned About Future Housing: No Difficulty Paying Gas/Electric Bills: No Difficulty Paying for Meds: No Currently Unemployed: No Education: High School Diploma/GED Difficulty w/ Childcare or Family Care: No Spiritual care concerns: No Exam Narrative: GENERAL: Well-appearing, well-nourished, and in no acute distress, pleasantly confused. HEAD: Normocephalic, atraumatic. EYES: PERRLA and EOMI. ENT: Nares clear, no rhinorrhea or epistaxis. Mucous membranes moist. NECK: Supple. CHEST: Clear to auscultation. No respiratory distress. HEART: Regular rate and rhythm. No murmur heard. Normal peripheral pulses. ABDOMEN: Soft, nontender, nondistended, normal active bowel sounds. EXTREMITIES: Normal range of motion. No edema. Mild tenderness to palpation in the right knee and left ankle no deformity noted SKIN: Warm, dry, no rash. NEURO: No focal deficits. Alert and pleasantly confused PSYCH: Normal mood and affect. Course Vital Signs Vital signs: Vital Signs Temperature 36.7 C 10/06/22 23:06 Pulse Rate 85 10/06/22 23:06 Respiratory Rate 18 10/06/22 23:06 Blood Pressure 107/60 10/06/22 23:06 Pulse Oximetry 100 10/06/22 23:06 Oxygen Delivery Room Air 10/06/22 23:06 Temperature 36.7 C 10/07/22 03:14 Pulse Rate 78 10/07/22 03:14 Respiratory Rate 15 10/07/22 03:14 Blood Pressure 131/60 10/07/22 03:14 Pulse Oximetry 100 10/07/22 03:14 Oxygen Delivery Room Air 10/06/22 23:06 Medical Decision Making [facility] Narrative Medical decision making narrative: Differential diagnosis includes fracture, vascular insufficiency, cellulitis, DVT Patient's exam showed no signs of cellulitis patient had intact pulses in the lower extremit
== END 2022-10-07 05:36 ==
PROVIDERS: Emergency Provider Emergency Medicine; PCP Physician Assistant
DX: M79.605 Pain in left leg (principal); M79.604 Pain in right leg; F03.90 Unspecified dementia, unspecified severity, without behavioral disturbance, psychotic disturbance, mood disturbance, and anxiety; Z87.891 Personal history of nicotine dependence; M19.072 Primary osteoarthritis, left ankle and foot; M17.11 Unilateral primary osteoarthritis, right knee; M25.461 Effusion, right knee
CPT/HCPCS: 73562; 73610; 99284

== ENCOUNTER 2023-04-26 11:40 | Emergency (ER) | payer MEDICARE, SELFPAY ==
--- NOTE | ~2023-04-26 | CT_ITS ---
EXAMINATION: CT facial & cervical spine wo DATE: 04/26/2023 13:00 INDICATION: Head injury, lip laceration TECHNIQUE: Computed tomography (CT) of the maxillofacial region and cervical spine was performed with out intravenous contrast. The dose-length product (DLP) was 206.59 mGy-cm. Automated exposure control and iterative reconstruction technique were employed. COMPARISON: None FINDINGS: MAXILLOFACIAL CT: No facial fracture is identified. The globes and orbits are unremarkable. CERVICAL SPINE CT: There are 3 mm of anterolisthesis of C4 on C5 and C7 on T1. There is severe loss of intervertebral di sc space height at C5-6 and C6-7 and moderate loss of disc space height at C4-5. The odontoid process is intact. There is multilevel severe facet and uncovertebral joint osteoarthritis. IMPRESSION: 1. No facial fracture identified. 2. Severe cervical spondylosis without acute abnormality of the cervical spine. Reviewed, dictated and finalized at location L. TEACHER
--- NOTE | ~2023-04-26 | XR_ITS ---
Left wrist Technique: PA, oblique, lateral, and ulnar deviation views were obtained. Clinical History: Pain Findings: No acute fracture or dislocation is seen. There is severe degenerative change of the first CMC joint with chronic, healed fracture deformity of the first metacarpal. Soft tissues are unremarka ble. Impression: Severe degenerative change of the first CMC joint with chronic, healed fracture deformity of the firs t metacarpal. Reviewed, dictated and finalized at location M. IX INSPECTOR Impression: Severe degenerative change of the first CMC joint with chronic, healed fracture deformity of the first metacarpal.
--- NOTE | ~2023-04-26 | CT_ITS ---
EXAMINATION: CT brain wo con INDICATION: Head injury COMPARISON: 09/26/2022 TECHNIQUE: Standard unenhanced head CT. The dose-length product (DLP) was 605.33 mGy-cm. The mA was a djusted according to patient size. Iterative reconstruction technique was employed. FINDINGS: No acute intraparenchymal hemorrhage. No evidence of mass lesion. No evidence of acute infa rction. There is mild periventricular and subcortical hypodensity probably related to small vessel is chemic disease. There is mild prominence of the sulci and ventricles related to cerebral atrophy. Int racranial calcified cerebral atherosclerosis is noted. No extra-axial collections. No mass effect or midline shift. The orbits and soft tissues are unremarkable. The visualized sinuses and mastoid air c ells are well aerated. IMPRESSION: 1. No acute intracranial abnormality. 2. Age related findings. Reviewed, dictated and finalized at location L. ACTION ATTENDANT
--- NOTE | ~2023-04-26 | XR_ITS ---
Left Hand Technique: PA, oblique, and lateral views were obtained. Clinical History: Pain Findings: No acute fracture or dislocation is seen. There is chronic, healed fracture deformity of th e first metacarpal. There is severe degenerative change of the first CMC joint. Soft tissues are unre markable. Impression: Severe degenerative change of the first CMC joint with underlying healed chronic fracture deformity o f the first metacarpal. Reviewed, dictated and finalized at location M. R SAW OPERATOR Impression: Severe degenerative change of the first CMC joint with underlying healed chroni c fracture deformity of the first metacarpal.
[2023-04-26 11:42] VITALS: BP 143/87; PULSE 70; RESP 16; TEMP 36.4; O2SAT 100
--- NOTE | 2023-04-26 12:23 | ED.FALL ---
HPI - Fall General Chief Complaint: Fall <Sai Daniel APRN - Last Filed: 04/26/23 12:36> Stated Complaint: FALL <Sai Daniel APRN - Last Filed: 04/26/23 12:36> Time Seen by Provider: 04/26/23 12:25 <Sai Daniel APRN - Last Filed: 04/26/23 12:36> Focused HPI: Dana is a 72-year-old female patient presenting to the ER today with complaints of an unwitnessed possible ground level fall. Daughter is here with the patient reports that she does live at [facility]. Patient does have gait/stability issue and normally walks with a walker. History of dementia. States that they think that she may have fell last night. Has a right upper lip laceration and bruising to the left wrist. Take prescription medications only as prescribed General: Well-developed, well nourished, in no apparent distress Head: Normocephalic, lip laceration to the right upper lip Cardio: Regular rate and rhythm, s1 and s2 normal, no murmur appreciated. Resp: Clear to auscultation bilaterally, no rhonchi, rales, wheezing or rubs. Musculoskeletal: No deformity, tender to palpation over the left wrist, grossly normal range of motion, muscle strength strong and equal, peripheral pulse strong, no edema, no cyanosis, normal gait and station NEURO: Alert and oriented x1 Patient screened in triage and initial orders placed. Will order x-ray of the left wrist and hand, CT of the head, cervical spine, and facial bones. Additional care and disposition to be based upon diagnostic testing and treatment. <Sai Daniel APRN - Last Filed: 04/26/23 12:36> Source: patient and family <Sai Daniel APRN - Last Filed: 04/26/23 12:36> family (daughter) <Daysi Reagan MD - Last Filed: 04/27/23 11:40> Mode of arrival: ambulatory <SHAHRIAR Goff Last Filed: 04/26/23 12:36> Limitations: no limitations <Sai Daniel APRN - Last Filed: 04/26/23 12:36> History of Present Illness HPI Narrative: Patient presents as a ground level fall. Her dementia limits history though this is provided extensively daughter presents with her. Patient usually ambulates with a walker. Not complaining of any pain but there was a lid laceration noted and ecchymosis along the left hand particularly at the thenar eminence and extending into the radial aspect of the wrist. <Daysi Reagan MD - Last Filed: 04/27/23 11:40> Related Data Home Medications: Home Medications Medication Instructions Recorded Confirmed atorvastatin 20 mg tablet 20 mg PO DAILY 09/27/22 09/27/22 buspirone 5 mg tablet 5 mg PO BID 09/27/22 09/27/22 donepezil 10 mg tablet 10 mg PO HS 09/27/22 09/27/22 fluoxetine 20 mg capsule 20 mg PO DAILY 09/27/22 09/27/22 losartan 50 mg-hydrochlorothiazide 1 tablet PO DAILY 09/27/22 09/27/22 12.5 mg tablet <Sai Daniel APRN - Last Filed: 04/26/23 12:36> Allergies/Adverse Reactions: Allergies Allergy/AdvReac Type Severity Reaction Status Date / Time cefuroxime [From Ceftin] AdvReac Swelling Verified 04/26/23 11:48 of Lip/Tongue/Throat lisinopril AdvReac Swelling Verified 04/26/23 11:48 of Lip/Tongue/Throat <Sai Daniel APRN - Last Filed: 04/26/23 12:36> [facility] Past Medical History Medical History: Medical History Dementia <Sai Daniel APRN - Last Filed: 04/26/23 12:36> Family History Family History: Family History Other Unknown family medical history <Sai Daniel APRN - Last Filed: 04/26/23 12:36> Social History Social History: Social History (Updated 04/27/23 @ 11:30 by Daysi Reagan MD) Social History: Has a daughter Smoking packs per day: 0.5 Smoking cigarettes per day: 10.0 Smoking status: Former smoker Tobacco type
[2023-04-26] MEDS: ACETAMINOPHEN 325 MG TABLET 650 MG PO (14:19)
--- NOTE | 2023-04-26 14:40 | PC.NURSE ---
Report given to DANIELLE Reyes at [place]
== END 2023-04-26 14:50 ==
PROVIDERS: Emergency Provider Student in an Organized Health Care Education/Training Program; PCP Family Medicine
DX: S01.511A Laceration without foreign body of lip, initial encounter (principal); M47.812 Spondylosis without myelopathy or radiculopathy, cervical region; F03.90 Unspecified dementia, unspecified severity, without behavioral disturbance, psychotic disturbance, mood disturbance, and anxiety; Z87.891 Personal history of nicotine dependence; W19.XXXA Unspecified fall, initial encounter
CPT/HCPCS: 70450; 70486; 72125; 73110; 73130; 99284; A9270

== ENCOUNTER 2023-09-10 17:48 | Emergency (ER) | payer MEDICARE, SELFPAY ==
[2023-09-10] VITALS (28 sets, daily range): BP systolic 116–143; BP diastolic 67–109; PULSE 53–84; RESP 13–20; TEMP 36.6–37.1; O2SAT 96–100
--- NOTE | ~2023-09-10 | CT_ITS ---
EXAMINATION: CT cervical spine wo con DATE: 09/10/2023 19:58 INDICATION: Fall TECHNIQUE: Computed tomography (CT) of the cervical spine was performed without intravenous contrast. Automated exposure control and iterative reconstruction technique were employed. The dose-length pro duct was 196.24 mGy-cm. COMPARISON: None. FINDINGS: Vertebral Body Alignment: Multilevel stable grade 1 listheses. Craniocervical and atlantoaxial alignment: Moderate degenerative change. Alignment intact. Osseous structures/fracture: No evidence of a lytic or blastic process in the visualized spine. No e vidence of acute fracture. Cervical soft tissues: The paraspinal soft tissues planes are maintained. Biapical pleural scarring. Degenerative changes: Degenerative changes, without severe neural foraminal or central canal narrowin g. IMPRESSION: No acute fracture or traumatic malalignment in the cervical spine. Reviewed, dictated and finalized at location K.
--- NOTE | ~2023-09-10 | XR_ITS ---
EXAM: XR pelvis 1-2V DATE: 09/10/2023 20:00 HISTORY: Fall UNWITNESSED X 2 TIMES SINCE LAST NIGHT . COMPARISON: None available. FINDINGS: Decreased mineralization. No fracture or dislocation. No lytic or blastic lesion. Lumbar d egenerative disc disease. Lumbar fusion hardware. Degenerative changes in the bilateral hips. No eros ion or periosteal change. Soft tissues within normal limits. IMPRESSION: No acute osseous finding in the pelvis. Reviewed, dictated and finalized at location K.
--- NOTE | ~2023-09-10 | XR_ITS ---
EXAMINATION: XR chest 1V Exam Date/Time: 09/10/2023 19:50 CDT HISTORY: Fall Comparison: 09/26/2022. RESULT: Lines, tubes, and devices: None. Lungs and pleura: Clear. Cardiomediastinal silhouette: Stable. Other: No acute osseous or upper abdominal finding. Old right clavicular fracture. IMPRESSION: No acute cardiopulmonary process. Reviewed, dictated and finalized at location K.
--- NOTE | ~2023-09-10 | CT_ITS ---
EXAMINATION: CT brain wo con DATE: 09/10/2023 19:58 INDICATION: Fall . TECHNIQUE: Computed tomography (CT) of the head was performed without intravenous contrast. The mA wa s adjusted according to patient size. Iterative reconstruction technique was employed. The dose-lengt h product was 605.33 mGy-cm. COMPARISON: None. FINDINGS: No acute intracranial hemorrhage or extra-axial fluid collection. No hydrocephalus, mass, or herniation. No acute ischemic infarct. Unremarkable dural venous sinus attenuation. No acute osseous abnormality. Trace right mastoid fluid, the remaining aerated spaces are clear. Moderate atrophy and chronic white matter change. Atherosclerotic intracranial calcification. Bilater al lens replacements. IMPRESSION: No acute intracranial process. Reviewed, dictated and finalized at location K.
[2023-09-10 20:39] LABS: Basophils Percent Auto 0.2 % (0.2-1.2); Eosinophils Absolute Auto 0.1 K/mm3 (0-0.3); Eosinophils Percent Auto 0.4 % (0-4.4); Hematocrit 39.1 % (37.0-47.0); Hemoglobin 12.7 g/dL (12.0-15.0); Immature Granulocyte Absolute 0.04 K/mm3 (0.00-0.031); Immature Granulocyte Percent A 0.4 % (0-0.5); Lymphocytes Absolute Auto 2.03 K/mm3 (0.9-3.2); Mean Corpuscular HGB Conc 32.5 g/dl (32-36); Mean Corpuscular Hemoglobin 31.4 pg (26-34); Mean Corpuscular Volume 96.5 fl (80-100); Mean Platelet Volume 11.1 fl (7.4-10.4); Monocytes Absolute Auto 0.8 K/mm3 (0.1-0.6); Monocytes Percent Auto 6.7 % (2.6-8.5); Neutrophils Absolute Auto 8.4 K/mm3 (1.3-6.7); Neutrophils Percent Auto 74.3 % (45.5-73.1); Platelet Count Result 191 k/mm3 (150-375); Red Blood Count 4.05 M/mm3 (4.2-5.4); Red Cell Distribution Width 13.3 % (11.5-14.5); White Blood Count 11.3 K/mm3 (4.5-10.0)
[2023-09-10 20:50] LABS: Alanine Aminotransferase 18 U/L (6-35); Albumin Level 3.9 g/dL (3.5-5.1); Alkaline Phosphatase 88 U/L (38-126); Anion Gap 11 mmol/L (4-12); Aspartate Amino Transferase 31 U/L (14-36); Bilirubin,Total 0.6 mg/dL (0.2-1.3); Blood Urea Nitrogen 18 mg/dL (7-17); Calcium 9.3 mg/dL (8.4-10.2); Carbon Dioxide 26 mmol/L (22-30); Chloride 102 mmol/L (98-107); Estimated CRCL calculation 57 ml/min; Estimated Glomerular Filt Rate > 60; Glucose 75 mg/dL (65-110); Lipase 111 U/L (23-300); Magnesium 1.7 mg/dL (1.6-2.3); Potassium 3.5 mmol/L (3.4-5.0); Sodium 139 mmol/L (137-145)
--- NOTE | 2023-09-10 21:42 | PC.NURSE ---
attempted multiple times with multiple RNs without success for straight cath at this time. notified.
--- NOTE | 2023-09-10 21:48 | ED.GENADULT ---
HPI - General Adult General Chief complaint: Fall Stated complaint: increased falls Time Seen by Provider: 09/10/23 18:51 History of Present Illness HPI narrative: This is a 73-year-old lady with severe dementia presenting after multiple falls at home. She lives in assisted living. She had a fall yesterday where she struck her head. She did not seek medical attention at that time. However today she had another unwitnessed fall and was sent to the ED for evaluation. Patient has severe dementia and can provide no useful information in the interview. Family is at bedside and are not aware of any complaints that she has had recently. Related Data Home Medications Medication Instructions Recorded Confirmed atorvastatin 20 mg tablet 20 mg PO DAILY 09/27/22 09/27/22 buspirone 5 mg tablet 5 mg PO BID 09/27/22 09/27/22 donepezil 10 mg tablet 10 mg PO HS 09/27/22 09/27/22 fluoxetine 20 mg capsule 20 mg PO DAILY 09/27/22 09/27/22 losartan 50 mg-hydrochlorothiazide 1 tablet PO DAILY 09/27/22 09/27/22 12.5 mg tablet Allergies Allergy/AdvReac Type Severity Reaction Status Date / Time cefuroxime [From Ceftin] AdvReac Swelling Verified 09/10/23 18:03 of Lip/Tongue/Throat lisinopril AdvReac Swelling Verified 09/10/23 18:03 of Lip/Tongue/Throat PMFSH Past Medical History Medical History Dementia Family History Family History Other Unknown family medical history Social History Social History Social History: Has a daughter Smoking packs per day: 0.5 Smoking cigarettes per day: 10.0 Smoking status: Former smoker Tobacco type: cigarettes Alcohol intake: former Substance use: never Lack of Transportation: No Lack of Food: Never True Current Housing: I Have Housing Concerned About Future Housing: No Difficulty Paying Gas/Electric Bills: No Difficulty Paying for Meds: No Currently Unemployed: No Education: High School Diploma/GED Difficulty w/ Childcare or Family Care: No Living arrangements: assisted living Additional living arrangements comments: [place] Spiritual care concerns: No Exam Narrative: APPEARANCE: No apparent distress. A&O x1, following commands Head: atraumatic. EYES: EOMI, NOSE: Atraumatic NECK: Trachea midline RESPIRATORY: No increased rate of breathing clear to auscultation CARDIOVASCULAR: RRR, no peripheral edema ABDOMINAL: Non-distended soft nontender MUSCULOSKELETAl: No obvious deformities patient palpated from head to toe with no areas of pain NEURO: Alert. Moving 4/4 extremities SKIN:: Warm, dry. Normal color PSYCHIATRIC: Normal affect Course Vital Signs Vital signs: Vital Signs Pulse Rate 84 09/10/23 17:57 Respiratory Rate 17 09/10/23 17:57 Temperature 98.7 F 09/10/23 20:28 Pulse Rate 53 L 09/10/23 22:30 Respiratory Rate 13 09/10/23 22:30 Blood Pressure 137/67 09/10/23 22:30 Pulse Oximetry 97 09/10/23 22:30 Oxygen Delivery Room Air 09/10/23 17:59 Medical Decision Making [facility] Narrative Medical decision making narrative: -Course: 73-year-old female with severe dementia presenting after multiple falls at home. No areas of injury on exam. Screening imaging and lab work ordered. Trauma workup negative. Laboratory studies unremarkable. Unfortunately we were not able to obtain urine. Multiple attempts to straight cath the patient but her urethra was located essentially inside of her vagina and we were not able to visualize the urethral opening to pass a catheter. No fevers/Whitecount or flank pain to make me think she has a serious infection requiring admission. Discussed this with the family we agreed we will treat her her for a urinary tract infection to take that off the table as the rest of her workup has been negative.
[2023-09-10] MEDS: SODIUM CHLORIDE 0.9% IV 2,000 ML 999 ML IV CONT (22:01)
[2023-09-11] MEDS: SULFAMETHOXAZOLE/TRIMETHOPRIM 800/160 MG DS TABLET 1 TAB PO (00:04)
== END 2023-09-11 00:10 ==
PROVIDERS: Emergency Provider Emergency Medicine; PCP Family Medicine
DX: S09.90XA Unspecified injury of head, initial encounter (principal); R29.6 Repeated falls; F03.C0 Unspecified dementia, severe, without behavioral disturbance, psychotic disturbance, mood disturbance, and anxiety; Z87.891 Personal history of nicotine dependence; Z79.899 Other long term (current) drug therapy; W19.XXXA Unspecified fall, initial encounter
CPT/HCPCS: 36415; 70450; 71045; 72125; 72170; 80053; 83690; 83735; 85025; 96360; 96361; 99284; A9270; J7030

== ENCOUNTER 2023-11-23 13:32 | Emergency (ER) | payer MEDICARE, SELFPAY ==
--- NOTE | ~2023-11-23 | CT_ITS ---
EXAMINATION: CT cervical spine wo con DATE: 11/23/2023 15:55 INDICATION: Fall. TECHNIQUE: Computed tomography (CT) of the cervical spine was performed without intravenous contrast. Automated exposure control and iterative reconstruction technique were employed. The dose-length pro duct was 143.41 mGy-cm. COMPARISON: CT cervical spine 09/10/2023 FINDINGS: There is mild emphysema. There is 11 degrees levoscoliosis of cervicothoracic spine. There is 2 mm anterolisthesis of C4 on C5 and C7 on T1. There is mild chronic height loss of T2 vertebral b marilee. There is moderately decreased disc height at C3-C4 and severely decreased disc height from C4-C5 through C6-C7. The following disc levels are specifically discussed: C2-C3: There is no uncovertebral joint osteoarthritis. There is mild bilateral facet joint osteoarthr itis. There is no neural foraminal stenosis. There is no central canal stenosis. C3-C4: There is severe bilateral uncovertebral joint osteoarthritis. There is severe bilateral facet joint osteoarthritis. There is mild bilateral neural foraminal stenosis. There is mild central canal stenosis. C4-C5: There is severe bilateral uncovertebral joint osteoarthritis. There is severe bilateral facet joint osteoarthritis. There is mild bilateral neural foraminal stenosis. There is mild central canal stenosis. C5-C6: There is severe bilateral uncovertebral joint osteoarthritis. There is severe bilateral facet joint osteoarthritis. There is mild bilateral neural foraminal stenosis. There is mild central canal stenosis. C6-C7: There is severe bilateral uncovertebral joint osteoarthritis. There is severe right and modera te left facet joint osteoarthritis. There is mild bilateral neural foraminal stenosis. There is mild central canal stenosis. C7-T1: There is no uncovertebral joint osteoarthritis. There is severe bilateral facet joint osteoart hritis. There is mild bilateral neural foraminal stenosis. There is no central canal stenosis. IMPRESSION: 1. No fracture. 2. Severe cervical spondylosis. 3. Cervicothoracic levoscoliosis. Reviewed, dictated and finalized at location A.
--- NOTE | ~2023-11-23 | XR_ITS ---
EXAMINATION: XR chest 1V DATE: 11/23/2023 15:56 INDICATION: Fall. TECHNIQUE: A single frontal view of the chest was obtained. COMPARISON: Chest single view 09/10/2023 FINDINGS: There is mild scarring at the lung apices. Calcified left lung nodules are consistent with old granulomatous disease. No pleural effusion or pneumothorax. The heart size is normal. There is an old healed fracture of right clavicle. IMPRESSION: 1. Mild scarring at the lung apices. Reviewed, dictated and finalized at location A.
--- NOTE | ~2023-11-23 | CT_ITS ---
EXAMINATION:CT diagnostic chest wo con DATE: 11/23/2023 17:44 INDICATION: Rib fracture. TECHNIQUE: Computed tomography (CT) of the chest was performed without intravenous contrast. Automate d exposure control and iterative reconstruction technique were employed. The dose-length product (DLP ) was 212.61 mGy-cm. COMPARISON: Chest single view 11/23/2023 FINDINGS: There is mild scarring at the lung apices. There is mild atelectasis bilaterally. There is a trace left pleural effusion. The heart size is normal. There are coronary artery calcifications. No pericardial effusion. There is a small sliding hiatal hernia. There is an 8 mm cyst in the liver. Th ere is 11 mm mass in left adrenal gland measuring low attenuation, consistent with an adenoma. There is severe cervical, thoracic, and lumbar spondylosis. There is an old healed fracture of right clavic le. There are old healed left rib fractures. IMPRESSION: 1. No acute rib fracture. Reviewed, dictated and finalized at location A. IMPRESSION: 1. No acute rib fracture.
--- NOTE | ~2023-11-23 | CT_ITS ---
EXAMINATION: CT brain wo con DATE: 11/23/2023 15:55 INDICATION: Fall. TECHNIQUE: Computed tomography (CT) of the head was performed without intravenous contrast. The mA wa s adjusted according to patient size. Iterative reconstruction technique was employed. The dose-lengt h product was 605.33 mGy-cm. COMPARISON: Head CT 09/10/2023 FINDINGS: There is no intracranial hemorrhage, acute infarction, or abnormal intracranial mass lesion . The ventricles are normal in size. There are likely changes of ocular lens replacement surgeries. T here is mild mucosal thickening in the paranasal sinuses. The mastoid air cells are normal. IMPRESSION: 1. Normal brain. Reviewed, dictated and finalized at location A. IMPRESSION: 1. Normal brain.
[2023-11-23 13:40] VITALS: BP 136/62; PULSE 59; RESP 17; TEMP 36.2; O2SAT 100
[2023-11-23 14:47] VITALS: BP 131/68; PULSE 60; RESP 15; O2SAT 98
--- NOTE | 2023-11-23 15:11 | ED.FALL ---
HPI - Fall General Chief Complaint: Fall Stated Complaint: falls Time Seen by Provider: 11/23/23 14:45 Source: family and EMS Mode of arrival: EMS Limitations: dementia History of Present Illness HPI Narrative: 73 years old white female, history of Alzheimer's disease came from snf because of a fall. Today. Unwitnessed. Ground level. History of multiple falls. Her daughter at the bedside who is telling me that last time was seen by her 1 week ago and she looks exactly the same no difference. Related Data Home Medications Medication Instructions Recorded Confirmed atorvastatin 20 mg tablet 20 mg PO DAILY 09/27/22 09/27/22 buspirone 5 mg tablet 5 mg PO BID 09/27/22 09/27/22 donepezil 10 mg tablet 10 mg PO HS 09/27/22 09/27/22 fluoxetine 20 mg capsule 20 mg PO DAILY 09/27/22 09/27/22 losartan 50 mg-hydrochlorothiazide 1 tablet PO DAILY 09/27/22 09/27/22 12.5 mg tablet Allergies Allergy/AdvReac Type Severity Reaction Status Date / Time cefuroxime [From Ceftin] AdvReac Swelling Verified 09/10/23 18:03 of Lip/Tongue/Throat lisinopril AdvReac Swelling Verified 09/10/23 18:03 of Lip/Tongue/Throat Review of Systems Review of Systems: All systems reviewed & are unremarkable except as noted in HPI and below PMFSH Past Medical History Medical History Dementia Family History Family History Other Unknown family medical history Social History Social History Social History: Has a daughter Smoking packs per day: 0.5 Smoking cigarettes per day: 10.0 Smoking status: Former smoker Tobacco type: cigarettes Alcohol intake: former Substance use: never Lack of Transportation: No Lack of Food: Never True Current Housing: I Have Housing Concerned About Future Housing: No Difficulty Paying Gas/Electric Bills: No Difficulty Paying for Meds: No Currently Unemployed: No Education: High School Diploma/GED Difficulty w/ Childcare or Family Care: No Living arrangements: assisted living Additional living arrangements comments: [place] Spiritual care concerns: No Exam Narrative: General appearance: Well-developed, well-nourished Skin: Normal color Head: Normocephalic, nontraumatic Eyes: Clear conjunctiva ENT: Oropharynx normal, ears normal, nose normal Neck: Supple, nontender Chest and respiratory: Airway patent, no respiratory distress, no accessory muscle use Heart: Regular rate/rhythm Abdomen: Soft, nontender, no organomegaly, quiet bowel sounds Vascular: Normal peripheral pulses, normal capillary refill. Musculoskeletal: Normal range of motion, nontender back Neurologic: Alert and oriented name, age, name of the president otherwise disoriented Course Vital Signs Vital signs: Vital Signs Temperature 36.2 C L 11/23/23 13:40 Pulse Rate 59 L 11/23/23 13:40 Respiratory Rate 17 11/23/23 13:40 Blood Pressure 136/62 11/23/23 13:40 Pulse Oximetry 100 11/23/23 13:40 Temperature 36.2 C L 11/23/23 13:40 Pulse Rate 69 11/23/23 17:31 Respiratory Rate 14 11/23/23 17:31 Blood Pressure 147/74 H 11/23/23 17:31 Pulse Oximetry 98 11/23/23 14:47 MDM - Fall MDM Narrative Medical decision making narrative: Patient came to the ED from snf with her daughter with multiple fall last 1 was today. Possible head injury. Vital signs are stable Physical examination showed that the patient awake, alert and oriented to her name age and name of the president, otherwise asymptomatic. P
--- NOTE | 2023-11-23 15:12 | ECG_ITS ---
Test Date: 2023-11-23 15:37:17 Measurements Intervals [place] Rate: 53 P: 58 [place]: 202 QRS: 32 QRSD: 78 T: 46 QT: 421 QTc: 397 Interpretive Statements SINUS BRADYCARDIA No previous ECG available for comparison Electronically Signed On 11-24-2023 16:13:46 CDT by Luis Tavares M.D.
--- NOTE | 2023-11-23 15:30 | PC.NURSE ---
SALES ASSOCIATE CASHIER AT BEDSIDE TO PREFORM STRAIGHT CATH FOR UA. REPORTS TO RN - UNSUCCESSFUL. BODY AND FENDER WORKER AT BEDSIDE TO ATTEMPT. UNABLE TO COLLECT URINE FROM STRAIGHT CATH. URINE BAG APPLIED - ER MD MADE AWARE.
[2023-11-23 15:32] LABS: Basophils Percent Auto 0.4 % (0.2-1.2); Eosinophils Absolute Auto 0.1 K/mm3 (0-0.3); Eosinophils Percent Auto 0.7 % (0-4.4); Hematocrit 38.9 % (37.0-47.0); Hemoglobin 12.6 g/dL (12.0-15.0); Immature Granulocyte Absolute 0.05 K/mm3 (0.00-0.031); Immature Granulocyte Percent A 0.5 % (0-0.5); Lymphocytes Absolute Auto 1.63 K/mm3 (0.9-3.2); Lymphocytes Percent Auto 16.3 % (18.3-44.2); Mean Corpuscular HGB Conc 32.4 g/dl (32-36); Mean Corpuscular Volume 98.7 fl (80-100); Mean Platelet Volume 11.3 fl (7.4-10.4); Monocytes Absolute Auto 0.7 K/mm3 (0.1-0.6); Monocytes Percent Auto 6.7 % (2.6-8.5); Neutrophils Absolute Auto 7.6 K/mm3 (1.3-6.7); Neutrophils Percent Auto 75.4 % (45.5-73.1); Platelet Count Result 203 k/mm3 (150-375); Red Blood Count 3.94 M/mm3 (4.2-5.4); Red Cell Distribution Width 13.6 % (11.5-14.5)
[2023-11-23 15:45] LABS: Alanine Aminotransferase 15 U/L (6-35); Albumin Level 3.8 g/dL (3.5-5.1); Alkaline Phosphatase 82 U/L (38-126); Anion Gap 4 mmol/L (4-12); Aspartate Amino Transferase 29 U/L (14-36); Bilirubin,Total 0.4 mg/dL (0.2-1.3); Blood Urea Nitrogen 14 mg/dL (7-17); Calcium 9.1 mg/dL (8.4-10.2); Carbon Dioxide 32 mmol/L (22-30); Chloride 105 mmol/L (98-107); Creatine Kinase 45 U/L (30-135); Estimated CRCL calculation 63 ml/min; Estimated Glomerular Filt Rate > 60; Glucose 93 mg/dL (65-110); Potassium 3.8 mmol/L (3.4-5.0); Sodium 141 mmol/L (137-145)
[2023-11-23 16:07] VITALS: BP 150/80; PULSE 59; RESP 14
[2023-11-23 16:15] VITALS: PULSE 49; RESP 13
--- NOTE | 2023-11-23 16:30 | PC.NURSE ---
NO URINE VOIDED INTO U-BAG; ER MADE AWARE.
[2023-11-23] MEDS: SODIUM CHLORIDE 0.9% IV 1,000 ML 999 ML IV CONT (17:29)
--- NOTE | 2023-11-23 17:30 | PC.NURSE ---
VIOLENT CRIMES DETECTIVE AT BEDSIDE. NO URINE NOTED IN UBAG; VIOLENT CRIMES DETECTIVE MAKES ER MD AWARE. VERBAL ORDER FOR 1000ML OF NORMAL SALINE GIVEN.
[2023-11-23 17:31] VITALS: BP 147/74; PULSE 69; RESP 14
== END 2023-11-23 19:45 ==
PROVIDERS: Emergency Provider Emergency Medicine; PCP Family Medicine
DX: Z04.3 Encounter for examination and observation following other accident (principal); R29.6 Repeated falls; G30.9 Alzheimer's disease, unspecified; F02.80 Dementia in other diseases classified elsewhere, unspecified severity, without behavioral disturbance, psychotic disturbance, mood disturbance, and anxiety; Z87.891 Personal history of nicotine dependence; M47.812 Spondylosis without myelopathy or radiculopathy, cervical region; R00.1 Bradycardia, unspecified; W18.30XA Fall on same level, unspecified, initial encounter
CPT/HCPCS: 36415; 70450; 71045; 71250; 72125; 80053; 82550; 85025; 93005; 96360; 99284; J7030

== ENCOUNTER 2023-11-28 18:32 | Emergency (ER) | payer MEDICARE, SELFPAY ==
--- NOTE | ~2023-11-28 | CT_ITS ---
History: Fall PROCEDURE: CT cervical spine without intravenous contrast. COMPARISON: 11/2023 TECHNIQUE: Multiple contiguous axial images of the cervical spine were performed without the administration of i ntravenous contrast. DLP: 160.44 mGy-cm FINDINGS: Straightening of the normal curvature of the cervical spine is identified Significant degenerative disease is redemonstrated, with osteophyte formation, disc space narrowing, endplate changes and vacuum phenomena. Redemonstration of anterolisthesis of C4 onto C5 and C7 on T1. The degree of anterolisthesis has increased at the level of C4/C5 from the previous examination, now measuring approximately 3 mm (compared with 2 mm on the previous study), possibly secondary to patien t's positioning within the gantry. Anterolisthesis of C7 on T1 is unchanged. The dens appears to be midline between the pillars. No acute fractures are present. Moderate facet arthropathy is noted all levels. The bilateral lung apices are better evaluated on diagnostic CT of the chest dated 11/23/2023 and is l imited on today's study by motion artifact. Biapical scarring and subpleural cysts are noted No soft tissue abnormality is present. The airway is unremarkable. Impression: Severe degenerative disease within the cervical spine, with slight worsening of the degree of anterol isthesis of C4 on to C5, possibly due to patient's positioning within the gantry. No acute fracture is appreciated. Reviewed, dictated and finalized at location A. Impression: Severe degenerative disease within the cervical spine, with slight worsening of the degree of anterolisthesis of C4 on to C5, possibly due to patient's positi oning within the gantry. No acute fracture is appreciated.
--- NOTE | ~2023-11-28 | CT_ITS ---
History: Follow-up head imaging PROCEDURE: CT head without contrast. COMPARISON: 11/23/2023 TECHNIQUE: Axial imaging of the head performed from the skull base to the vertex without IV contrast. Sagittal a nd coronal reformations obtained. DLP: 681 mGy-cm FINDINGS: The ventricles are enlarged, equal to the degree of sulcal prominence, findings consistent with a sen escent brain. There is no mass, mass effect or midline shift. There is no abnormal extra-axial fluid collection or intracranial hemorrhage. Mucoperiosteal thickening within the ethmoid sinuses are redemonstrated. Remaining paranasal sinuses are unremarkable. The mastoid air cells are well aerated. There are no skull fractures. Impression: Stable senescent changes of the brain without acute intracranial hemorrhage or suspicious mass effect . Reviewed, dictated and finalized at location A. Impression: Stable senescent changes of the brain without acute intracranial hemorrhage or suspicious mass effect.
[2023-11-28 19:05] VITALS: BP 109/71; PULSE 58; RESP 16; TEMP 36.3; O2SAT 99
[2023-11-28 21:40] VITALS: BP 130/71; PULSE 67; RESP 17; TEMP 36.6; O2SAT 98
--- NOTE | 2023-11-28 21:56 | ED.FALL ---
HPI - Fall General Chief Complaint: Fall Stated Complaint: unwitnessed glf Time Seen by Provider: 11/28/23 21:27 Source: patient Mode of arrival: EMS Limitations: dementia History of Present Illness HPI Narrative: This is a 73-year-old female who presents to the ED via EMS from long term for chief complaint of unwitnessed fall. Patient is alert oriented x1 at baseline according to the staff and EMS. She denies any injury. History limited due to dementia. Related Data Home Medications Medication Instructions Recorded Confirmed atorvastatin 20 mg tablet 20 mg PO DAILY 09/27/22 09/27/22 buspirone 5 mg tablet 5 mg PO BID 09/27/22 09/27/22 donepezil 10 mg tablet 10 mg PO HS 09/27/22 09/27/22 fluoxetine 20 mg capsule 20 mg PO DAILY 09/27/22 09/27/22 losartan 50 mg-hydrochlorothiazide 1 tablet PO DAILY 09/27/22 09/27/22 12.5 mg tablet Allergies Allergy/AdvReac Type Severity Reaction Status Date / Time cefuroxime [From Ceftin] AdvReac Swelling Verified 09/10/23 18:03 of Lip/Tongue/Throat lisinopril AdvReac Swelling Verified 09/10/23 18:03 of Lip/Tongue/Throat Review of Systems Review of Systems: All systems as dictated in HPI ROS unobtainable: Yes unobtainable due to mental status PMFSH Past Medical History Medical History Dementia Family History Family History Other Unknown family medical history Social History Social History Social History: Has a daughter Smoking packs per day: 0.5 Smoking cigarettes per day: 10.0 Smoking status: Former smoker Tobacco type: cigarettes Alcohol intake: former Substance use: never Lack of Transportation: No Lack of Food: Never True Current Housing: I Have Housing Concerned About Future Housing: No Difficulty Paying Gas/Electric Bills: No Difficulty Paying for Meds: No Currently Unemployed: No Education: High School Diploma/GED Difficulty w/ Childcare or Family Care: No Living arrangements: assisted living Additional living arrangements comments: [place] Spiritual care concerns: No Exam Narrative: GENERAL: Well-appearing, well-nourished, and in no acute distress. HEAD: Normocephalic, atraumatic. EYES: PERRLA and EOMI. ENT: Nares clear, no rhinorrhea or epistaxis. Mucous membranes moist. Oropharynx without tonsillar hypertrophy exudate or other lesions. NECK: Supple. No adenopathy or masses. CHEST: No respiratory distress. Clear to auscultation. No wheezes rales or rhonchi HEART: Regular rate and rhythm. No murmur heard. Normal peripheral pulses. ABDOMEN: Soft, nontender, nondistended, normal active bowel sounds. MSK: Normal range of motion. No edema. No pain with lateral bilateral hips. No midline cervical, thoracic, lumbar spine tenderness. SKIN: Warm, dry, no rash. NEURO: Alert and oriented x1, at baseline. No focal deficits. Moves all 4 extremities spontaneously PSYCH: Normal mood and affect. Course Vital Signs Vital signs: Vital Signs Temperature 97.4 F L 11/28/23 19:05 Pulse Rate 58 L 11/28/23 19:05 Respiratory Rate 16 11/28/23 19:05 Blood Pressure 109/71 11/28/23 19:05 Pulse Oximetry 99 11/28/23 19:05 Temperature 98 F 11/29/23 00:02 Pulse Rate 69 11/29/23 00:02 Respiratory Rate 16 11/29/23 00:02 Blood Pressure 100/60 11/29/23 00:02 Pulse Oximetry 98 11/29/23 00:02 MDM - Fall MDM Narrative Medical decision making narrative: This is a 73 yo female who presents to the ED via EMS after a reported unwitnessed fall at the long term. Vitals are normal. Exam shows no acute traumatic findings. Alert oriented x1 which is her baseline. Moving all extremities spontaneously and without pain. CT imaging of the brain and cervical spine did not show any acute osseous or hemorrhagic f
[2023-11-29 00:02] VITALS: BP 100/60; PULSE 69; RESP 16; TEMP 36.6; O2SAT 98
[2023-11-29 02:30] VITALS: BP 123/77; PULSE 62; RESP 18; TEMP 36.6; O2SAT 99
== END 2023-11-29 02:30 ==
PROVIDERS: Emergency Provider Physician Assistant; PCP Family Medicine
DX: Z04.3 Encounter for examination and observation following other accident (principal); F03.90 Unspecified dementia, unspecified severity, without behavioral disturbance, psychotic disturbance, mood disturbance, and anxiety; Z87.891 Personal history of nicotine dependence; Z79.899 Other long term (current) drug therapy; W19.XXXA Unspecified fall, initial encounter
CPT/HCPCS: 70450; 72125; 99284

== ENCOUNTER 2023-11-29 11:39 | Emergency (ER) | payer MEDICARE, SELFPAY ==
--- NOTE | ~2023-11-29 | CT_ITS ---
CT brain wo con Ordering provider: Larry Rosario MD History: 73 years Female with . Head trauma . Comparison: November 28, 2023 Technique: CT of the head without contrast. FINDINGS: BRAIN PARENCHYMA AND CSF SPACES: Mild leukoaraiosis and diffuse cortical atrophy. Mild atheromatous d isease. No midline shift, mass effect or hemorrhage. The brain parenchyma and CSF spaces are otherwi se normal. VISUALIZED PARANASAL SINUSES: Well aerated. MASTOIDS: Well aerated. BONES: The bones appear intact. SOFT TISSUES: Visualized nasopharynx is normal. Superficial soft tissues are normal. IMPRESSION: No acute intracranial findings. Reviewed, dictated and finalized at location A.
--- NOTE | ~2023-11-29 | XR_ITS ---
XR chest 2V Ordering provider: Vibha Pfeiffer PA-C History: 73 years Female with . weakness . Comparison: November 23, 2023 FINDINGS: MEDIASTINUM: The cardiac silhouette is not enlarged. LUNGS: No infiltrates, effusions or pneumothorax. OTHER: No free air under the diaphragm. Degenerative the spine with postoperative changes in the lowe r lumbar area IMPRESSION: No acute cardiopulmonary pathology. Reviewed, dictated and finalized at location A.
--- NOTE | ~2023-11-29 | CT_ITS ---
EXAMINATION: CT cervical spine wo con DATE: 11/29/2023 12:50 INDICATION: Neck injury. TECHNIQUE: Computed tomography (CT) of the cervical spine was performed without intravenous contrast. Automated exposure control and iterative reconstruction technique were employed. The dose-length pro duct was 166.35 mGy-cm. COMPARISON: CT cervical spine 11/28/2023 FINDINGS: There is mild emphysema. There is 8 degrees levocurvature of cervicothoracic spine. There i s 3 mm anterolisthesis of C4 on C5 and 2 mm anterolisthesis of C7 on T1. There is mild chronic anteri or wedging of T2 vertebral body. There is moderately decreased disc height at C3-C4 and severely decr eased disc height from C4-C5 through C6-C7. The following disc levels are specifically discussed: C2-C3: There is no uncovertebral joint osteoarthritis. There is moderate bilateral facet joint osteoa rthritis. There is no neural foraminal stenosis. There is no central canal stenosis. C3-C4: There is severe bilateral uncovertebral joint osteoarthritis. There is severe bilateral facet joint osteoarthritis. There is mild bilateral neural foraminal stenosis. There is mild central canal stenosis. C4-C5: There is severe bilateral uncovertebral joint osteoarthritis. There is severe bilateral facet joint osteoarthritis. There is mild bilateral neural foraminal stenosis. There is mild central canal stenosis. C5-C6: There is severe bilateral uncovertebral joint osteoarthritis. There is severe bilateral facet joint osteoarthritis. There is mild bilateral neural foraminal stenosis. There is mild central canal stenosis. C6-C7: There is severe bilateral uncovertebral joint osteoarthritis. There is severe right and modera te left facet joint osteoarthritis. There is moderate right and mild left neural foraminal stenosis. There is mild central canal stenosis. C7-T1: There is no uncovertebral joint osteoarthritis. There is severe bilateral facet joint osteoart hritis. There is mild bilateral neural foraminal stenosis. There is no central canal stenosis. IMPRESSION: 1. No acute fracture. 2. Severe cervical spondylosis. Reviewed, dictated and finalized at location A.
[2023-11-29 11:39] VITALS: BP 134/77; PULSE 76; RESP 14; TEMP 36.8; O2SAT 100
--- NOTE | 2023-11-29 11:43 | ECG_ITS ---
Test Date: 2023-11-29 12:37:50 Measurements Intervals [place] Rate: 61 P: 39 NM: 202 QRS: 31 QRSD: 77 T: 30 QT: 403 QTc: 408 Interpretive Statements SINUS RHYTHM NORMAL ELECTROCARDIOGRAM Compared to ECG 11/23/2023 15:37:17 NO SIGNIFICANT DIFFERENCE Electronically Signed On 11-29-2023 16:09:21 CDT by Christopher Vu M.D.
[2023-11-29 12:12] VITALS: BP 125/77; PULSE 77; RESP 16; TEMP 36.8; O2SAT 97
--- NOTE | 2023-11-29 12:56 | ED.FALL ---
HPI - Fall General Chief Complaint: Fall Stated Complaint: mult. falls Time Seen by Provider: 11/29/23 11:56 Source: EMS Mode of arrival: EMS Limitations: dementia History of Present Illness HPI Narrative: HPI limited due to patient's baseline dementia Nursing documentation notes EMS was called to the patient's assisted living facility ([facility]) for complaints of fall. Staff found the patient on the floor without any known injuries and requested evaluation. The patient is reportedly at her baseline mental status alert and oriented to person and place. Staff at her facility also notes she has had multiple falls in the last few days. The patient is reportedly not taking anticoagulants. The patient response yeah to questions. She responds yeah, no to questions regarding pain. Related Data Home Medications Medication Instructions Recorded Confirmed atorvastatin 20 mg tablet 20 mg PO DAILY 09/27/22 09/27/22 buspirone 5 mg tablet 5 mg PO BID 09/27/22 09/27/22 donepezil 10 mg tablet 10 mg PO HS 09/27/22 09/27/22 fluoxetine 20 mg capsule 20 mg PO DAILY 09/27/22 09/27/22 losartan 50 mg-hydrochlorothiazide 1 tablet PO DAILY 09/27/22 09/27/22 12.5 mg tablet Allergies Allergy/AdvReac Type Severity Reaction Status Date / Time cefuroxime [From Ceftin] AdvReac Swelling Verified 09/10/23 18:03 of Lip/Tongue/Throat lisinopril AdvReac Swelling Verified 09/10/23 18:03 of Lip/Tongue/Throat Review of Systems Review of Systems: ROS unobtainable: Yes unobtainable due to mental status PMFSH Past Medical History Medical History Dementia Family History Family History Other Unknown family medical history Social History Social History Social History: Has a daughter Smoking packs per day: 0.5 Smoking cigarettes per day: 10.0 Smoking status: Former smoker Tobacco type: cigarettes Alcohol intake: former Substance use: never Lack of Transportation: No Lack of Food: Never True Current Housing: I Have Housing Concerned About Future Housing: No Difficulty Paying Gas/Electric Bills: No Difficulty Paying for Meds: No Currently Unemployed: No Education: High School Diploma/GED Difficulty w/ Childcare or Family Care: No Living arrangements: assisted living Additional living arrangements comments: [facility] Spiritual care concerns: No Exam Narrative: GENERAL: Well-developed, well-nourished, and in no acute distress. HEAD: Normocephalic, atraumatic. EYES: PERRLA and EOMI. ENT: Nares clear, no rhinorrhea or epistaxis. Mucous membranes moist. Oropharynx without tonsillar hypertrophy exudate or other lesions. NECK: Supple. No midline spine tenderness to palpation, no step-off or crepitus CHEST: Clear to auscultation. No respiratory distress. No wheezes rales or rhonchi HEART: Regular rate and rhythm. No murmur heard. Normal peripheral pulses. ABDOMEN: Soft, nontender, nondistended, normal active bowel sounds. BACK: No midline spine tenderness to palpation, no step-off or crepitus EXTREMITIES: Normal range of motion. No edema. SKIN: Warm, dry, no rash. NEURO: Alert and oriented x3. No focal deficit. Moving all 4 limbs spontaneously PSYCH: Normal mood and affect. Course Course Emergency Course: 18:36 - CBC demonstrates mildly elevated white blood cell count of 10.2 but is otherwise unremarkable. Chemistries unremarkable. CT head and CT cervical spine not concerning for 0 fracture, intracranial hemorrhage or cervical spine fracture. Chest x-ray unremarkable. Despite multiple attempts, staff unable to obtain a urine sample. The patient has remained at her baseline mental status throughout observation emergency department. She does not exhibit any other signs concerning for infection. Will discha
[2023-11-29 13:40] LABS: Basophils Percent Auto 0.3 % (0.2-1.2); Eosinophils Percent Auto 0.3 % (0-4.4); Immature Granulocyte Absolute 0.03 K/mm3 (0.00-0.031); Immature Granulocyte Percent A 0.3 % (0-0.5); Lymphocytes Percent Auto 14.7 % (18.3-44.2); Mean Corpuscular HGB Conc 32.5 g/dl (32-36); Mean Corpuscular Hemoglobin 31.6 pg (26-34); Mean Corpuscular Volume 97.3 fl (80-100); Mean Platelet Volume 11.7 fl (7.4-10.4); Monocytes Absolute Auto 0.7 K/mm3 (0.1-0.6); Monocytes Percent Auto 6.8 % (2.6-8.5); Neutrophils Absolute Auto 7.9 K/mm3 (1.3-6.7); Neutrophils Percent Auto 77.6 % (45.5-73.1); Platelet Count Result 189 k/mm3 (150-375); Red Blood Count 4.11 M/mm3 (4.2-5.4); Red Cell Distribution Width 13.8 % (11.5-14.5); White Blood Count 10.2 K/mm3 (4.5-10.0)
[2023-11-29 13:49] LABS: Creatine Kinase 69 U/L (30-135)
[2023-11-29 13:56] LABS: Alanine Aminotransferase 17 U/L (6-35); Albumin Level 4.3 g/dL (3.5-5.1); Alkaline Phosphatase 106 U/L (38-126); Anion Gap 9 mmol/L (4-12); Aspartate Amino Transferase 31 U/L (14-36); Bilirubin,Total 0.6 mg/dL (0.2-1.3); Blood Urea Nitrogen 21 mg/dL (7-17); Calcium 9.6 mg/dL (8.4-10.2); Carbon Dioxide 28 mmol/L (22-30); Chloride 104 mmol/L (98-107); Estimated CRCL calculation 60 ml/min; Estimated Glomerular Filt Rate > 60; Glucose 90 mg/dL (65-110); Potassium 3.6 mmol/L (3.4-5.0); Sodium 141 mmol/L (137-145)
[2023-11-29] MEDS: SODIUM CHLORIDE 0.9% IV 1,000 ML 999 ML IV CONT (15:21)
[2023-11-29 17:58] VITALS: BP 130/77; PULSE 79; RESP 16; TEMP 36.7; O2SAT 98
[2023-11-29 22:00] VITALS: BP 148/82; PULSE 74; RESP 16; TEMP 36.6; O2SAT 98
== END 2023-11-29 22:08 ==
PROVIDERS: Physician Assistant; Emergency Provider Preventive Medicine Aerospace Medicine; PCP Family Medicine
DX: Z04.3 Encounter for examination and observation following other accident (principal); R29.6 Repeated falls; F03.90 Unspecified dementia, unspecified severity, without behavioral disturbance, psychotic disturbance, mood disturbance, and anxiety; Z87.891 Personal history of nicotine dependence; Z79.899 Other long term (current) drug therapy; M47.812 Spondylosis without myelopathy or radiculopathy, cervical region; W19.XXXA Unspecified fall, initial encounter
CPT/HCPCS: 36415; 70450; 71046; 72125; 80053; 82550; 85025; 93005; 96360; 99284; J7030

== ENCOUNTER 2023-11-30 17:45 | Emergency (ER) | payer MEDICARE, SELFPAY ==
--- NOTE | ~2023-11-30 | XR_ITS ---
XR chest 2V Ordering provider: Josephine Mccauley PA-C History: 73 years Female with . fall, dementia . Comparison: November 29 2023 FINDINGS: MEDIASTINUM: The cardiac silhouette is slightly enlarged. LUNGS: No effusions or pneumothorax. Minimal opacification in the left lower lobe OTHER: No free air under the diaphragm. Degenerative changes of the spine. IMPRESSION: Possible atelectasis in the left lower lobe. Clinical correlation advised. Reviewed, dictated and finalized at location A.
--- NOTE | ~2023-11-30 | CT_ITS ---
CT brain wo con Ordering provider: Josephine Mccauley PA-C History: 73 years Female with . fall, hi . Comparison: November 29, 2023 Technique: CT of the head without contrast. Radiation reduction technique utilized The dose-length product was 605.33 mGy-cm. FINDINGS: BRAIN PARENCHYMA AND CSF SPACES: Mild leukoaraiosis and diffuse cortical atrophy. Mild atheromatous d isease. No midline shift, mass effect or hemorrhage. The brain parenchyma and CSF spaces are otherwi se normal. VISUALIZED PARANASAL SINUSES: Well aerated. MASTOIDS: Well aerated. BONES: The bones appear intact. SOFT TISSUES: Visualized nasopharynx is normal. Superficial soft tissues are normal. IMPRESSION: No acute intracranial findings. Reviewed, dictated and finalized at location A.
--- NOTE | ~2023-11-30 | CT_ITS ---
CT facial & cervical spine wo Ordering provider: Josephine Mccauley PA-C History: . fall, hi, facial inj, dementia . Comparison: None. Technique: Thin slice axial CT of the facial bones was performed without contrast. Coronal and sagit griffin reformatted images were also obtained. . Automated exposure control and iterative reconstruction technique were employed. The dose-length product was 192.89 mGy-cm. FINDINGS: PARANASAL SINUSES: Bilateral maxillary sinus disease with mucosal thickening. BONES: No facial fracture including no nasal bone fracture. Mild left nasal septal deviation.Bony pro trusion is seen from the inner aspects of the mandibles most likely osteomas. Follow-up advised. Prot rusion of the last left upper tooth in the left maxillary sinus. ORBITS AND SUPERFICIAL SOFT TISSUES: The optic globes and orbits are normal. The superficial soft tis sues are normal. VISUALIZED MASTOIDS: Well aerated. LIMITED VISUALIZED BRAIN PARENCHYMA: Normal. IMPRESSION: No definite facial fracture. Bilateral maxillary sinus disease. CT facial & cervical spine wo Ordering provider: Josephine Mccauley PA-C History: . fall, hi, facial inj, dementia . Comparison: None. Technique: CT of the cervical spine was performed without contrast. Sagittal and coronal reformatted images were also obtained and reviewed. Automated exposure control and iterative reconstruction alberto hnique were employed. The dose-length product was 192.89 mGy-cm. FINDINGS: VERTEBRAE: Anterolisthesis at the level of C4-C5. Otherwise, No subluxation or acute fracture. The oc cipital condyles are intact. DISC SPACES: Narrowing of the disc C4-C5, C5-C6 and C6-C7. Multilevel facet joint disease. Multilevel uncovertebral joint osteoarthritic changes. Multilevel intervertebral foraminal narrowing. PARASPINO US SOFT TISSUES: Small lymph nodes are seen bilaterally. Bilateral carotid calcifications. Aortic josafat cifications IMPRESSION: No acute osseous abnormality cervical spine. Anterolisthesis at the level of C4-C5. Multilevel degenerative disc disease. Reviewed, dictated and finalized at location A. IMPRESSION: No definite facial fracture. Bilateral maxillary sinus disease. CT facial & cervical spine wo Ordering provider: Josephine Mccauley PA-C History: . fall, hi, facial inj, dementia . Comparison: None. Technique: CT of the cervical spine was performed without contrast. Sagittal a nd coronal reformatted images were also obtained and reviewed. Automated expos ure control and iterative reconstruction technique were employed. The dose-cammy th product was 192.89 mGy-cm. FINDINGS: VERTEBRAE: Anterolisthesis at the level of C4-C5. Otherwise, No subluxation or acute fracture. The occipital condyles are intact. DISC SPACES: Narrowing of the disc C4-C5, C5-C6 and C6-C7. Multilevel facet yojana nt disease. Multilevel uncovertebral joint osteoarthritic changes. Multilevel i ntervertebral foraminal narrowing. PARASPINOUS SOFT TISSUES: Small lymph nodes are seen bilaterally. Bilateral carotid calcifications. Aortic calcifications
--- NOTE | ~2023-11-30 | XR_ITS ---
XR hip BI 2V w AP pelvis Ordering provider: Josephine Mccauley PA-C History: . fall, dementia . Comparison: September 10, 2023 FINDINGS: BONES: No acute fracture or dislocation. HIP JOINT SPACES: Mild to moderate narrowing of the spaces. SACROILIAC JOINT SPACES/LUMBAR SPINE: The sacroiliac joint spaces are normal. Mild degenerative saunders es of the visualized lower lumbar spine. Postoperative changes in the spine. PUBIC SYMPHYSIS: Normal. SOFT TISSUES: Normal. IMPRESSION: No acute osseous abnormality of the bilateral hips and pelvis. Reviewed, dictated and finalized at location A.
[2023-11-30 17:52] VITALS: BP 133/71; PULSE 63; RESP 18; TEMP 36.5; O2SAT 97
--- NOTE | 2023-11-30 18:57 | ECG_ITS ---
Test Date: 2023-11-30 20:18:38 Measurements Intervals [place] Rate: 58 P: 59 AL: 199 QRS: 47 QRSD: 77 T: 42 QT: 418 QTc: 411 Interpretive Statements SINUS BRADYCARDIA Compared to ECG 11/29/2023 12:37:50 Sinus rhythm no longer present Electronically Signed On 12-01-2023 08:30:21 CDT by Luis Tavares M.D.
--- NOTE | 2023-11-30 19:00 | ED.FALL ---
HPI - Fall General Chief Complaint: Fall Stated Complaint: fall Time Seen by Provider: 11/30/23 17:58 Source: patient, RN notes reviewed and old records reviewed Mode of arrival: EMS Limitations: dementia History of Present Illness HPI Narrative: Patient is a 73-year-old female, with PMH of dementia, who presents the ED via EMS with report of a fall. Patient is a resident of [facility]. Alert oriented x2 at baseline. Had a ground level fall today which was unwitnessed. Was found on the ground. Was able to get up off the ground unassisted. Found to have contusions on her face, R forehead. Sent to the ED for further evaluation. Patient is not on any anticoagulation. Is able to answer some of my questions, but is not able to tell me how the fall occurred. Does not report any significant areas of pain at this time. Per records, patient has been seen in the ED several times recently for falls. Related Data Home Medications Medication Instructions Recorded Confirmed atorvastatin 20 mg tablet 20 mg PO DAILY 09/27/22 09/27/22 buspirone 5 mg tablet 5 mg PO BID 09/27/22 09/27/22 donepezil 10 mg tablet 10 mg PO HS 09/27/22 09/27/22 fluoxetine 20 mg capsule 20 mg PO DAILY 09/27/22 09/27/22 losartan 50 mg-hydrochlorothiazide 1 tablet PO DAILY 09/27/22 09/27/22 12.5 mg tablet Allergies Allergy/AdvReac Type Severity Reaction Status Date / Time cefuroxime [From Ceftin] AdvReac Swelling Verified 09/10/23 18:03 of Lip/Tongue/Throat lisinopril AdvReac Swelling Verified 09/10/23 18:03 of Lip/Tongue/Throat Review of Systems Review of Systems: ROS unobtainable: Yes unobtainable due to mental status PMFSH Past Medical History Medical History Dementia Family History Family History Other Unknown family medical history Social History Social History Social History: Has a daughter Smoking packs per day: 0.5 Smoking cigarettes per day: 10.0 Smoking status: Former smoker Tobacco type: cigarettes Alcohol intake: former Substance use: never Lack of Transportation: No Lack of Food: Never True Current Housing: I Have Housing Concerned About Future Housing: No Difficulty Paying Gas/Electric Bills: No Difficulty Paying for Meds: No Currently Unemployed: No Education: High School Diploma/GED Difficulty w/ Childcare or Family Care: No Living arrangements: assisted living Additional living arrangements comments: [place] Spiritual care concerns: No Exam Narrative: GENERAL: Elderly, well-nourished, non-toxic, in no acute distress. HEAD: Normocephalic. Contusion to right forehead, right sided periorbital region, bridge of nose. EYES: PERRL/EOMI, conjunctiva clear. No nystagmus. ENT: No active epistaxis. No significant swelling. NECK: No appreciable midline spinal tenderness. RESPIRATORY: Airway patent, respirations nonlabored. Clear to auscultation bilaterally, no rales, rhonchi, wheezing. CARDIOVASCULAR: Regular rate and rhythm without murmurs, rubs, or gallops. ABDOMINAL: Soft, no appreciable tenderness, nondistended. Normoactive BS. MUSCULOSKELETAL: Moves all extremities. No gross deformities. SKIN: Warm, dry, normal color. NEURO: A&O X2. Speech somewhat slow and words are fluid together. Moves all extremities equally. No gross focal deficits. Follows most commands. No ataxic movements. PSYCHIATRIC: Pleasantly confused. Course Vital Signs Vital signs: Vital Signs Temperature 97.7 F 11/30/23 17:52 Pulse Rate 63 11/30/23 17:52 Respiratory Rate 18 11/30/23 17:52 Blood Pressure 133/71 11/30/23 17:52 Pulse Oximetry 97 11/30/23 17:52 Temperature 97.7 F 11/30/23 17:52 Pulse Rate 57 L 11/30/23 20:28 Respiratory Rate 14 11/30/23 20:28 Blood Pressure 139/70 11/30/23 20:28 Pulse Oximetry 97 11/30/23 20:28 MDM - Fall MDM Narrative Medical decision making narrative: Patient presented to ED from local skilled nursing with unwitnessed fall, head injury, Hx of dementia. A&OX2 currently, which is her baseline. no gross deformities or focal deficits appreciated on exam. Vital signs are stable. Patient in no acute distress. Resting comfortably. Will obtain workup to further evaluate as patient unable to tell me how fall occurred. CT brain without acute intracranial abnormalities. CT facial bones/cervical spine negative. chest x-ray is clear. X-ray of hip / pelvis unremarkable. EKG is nonischemic. Labs were reviewed from patient's recent ED visits, including ED visit yesterday, without significant abnormalities. These were not repeated today as they have been performed in the last 24 hours. Attempted to obtain urine sample however despite multiple attempts at catheterization/pure wick, unable to collect sample. Will place outpatient order for sample. Patient has otherwise been stable throughout ED stay, remains at her neurologic baseline, no further complaints. D/C back to [facility]. Given return precautions. Medical Records Attestation: I reviewed the patient's medical records. Imaging Data Attestation: I personally reviewed and interpreted this imaging study as follows: Radiologist's impression: ITS Impressions Chest X-Ray 11/30/23 19:46 IMPRESSION: Possible atelectasis in the left lower lobe. Clinical correlation advised. Hip/Pelvis X-Ray 11/30/23 19:49 IMPRESSION: No acute osseous abnormality of the bilateral hips and pelvis. Head CT 11/30/23 19:51 IMPRESSION: No acute intracranial findings. Head/Cervical Spine/Facial Bones CT 11/30/23 21:02 IMPRESSION: No definite facial fracture. Bilateral maxillary sinus disease. CT facial & cervical spine wo Ordering provider: Josephine Mccauley PA-C History: . fall, hi, facial inj, dementia . Comparison: None. Technique: CT of the cervical spine was performed without contrast. Sagittal and coronal reformatted images were also obtained and reviewed. Automated exposure control and iterative reconstruction technique were employed. The dose-length product was 192.89 mGy-cm. FINDINGS: VERTEBRAE: Anterolisthesis at the level of C4-C5. Otherwise, No subluxation or acute fracture. The occipital condyles are intact. DISC SPACES: Narrowing of the disc C4-C5, C5-C6 and C6-C7. Multilevel facet joint disease. Multilevel uncovertebral joint osteoarthritic changes. Multilevel intervertebral foraminal narrowing. PARASPINOUS SOFT TISSUES: Small lymph nodes are seen bilaterally. Bilateral carotid calcifications. Aortic calcifications IMPRESSION: No acute osseous abnormality cervical spine. Anterolisthesis at the level of C4-C5. Multilevel degenerative disc disease. ECG Data EKG #1: Attestation: I personally reviewed and interpreted this ECG as follows: ECG completion date: 11/30/23 ECG completion time: 20:18 EKG Interpretation: bradycardia (58), sinus rhythm and no ST changes Discharge Plan Discharge Clinical Impression: Multiple falls Dementia Qualifiers: Dementia type: unspecified type Dementia severity: unspecified severity Dementia behavioral or psychological symptom: unspecified whether behavioral, psychotic, or mood disturbance or anxiety Qualified Code(s): F03.90 - Unspecified dementia, unspecified severity, without behavioral disturbance, psychotic disturbance, mood disturbance, and anxiety Patient Disposition: [facility] Senior Living/Asst Living Condition: Stable Instructions: Antibiotic Form, Fall Prevention for Older Adults (ED) Additional Instructions: Patient's imaging here did not show any evidence of traumatic findings. She has been stable throughout ED stay. Return patient to the ED if she experiences recurrent falls or injuries, severe pain, unable to keep down food or drink, persistent fevers, difficulty breathing, or any other symptoms of concern. We were unable to obtain a urine sample here in the ED. An outpatient lab order was placed if needed. Prescriptions: No Action buspirone 5 mg Tablet 5 mg PO BID atorvastatin 20 mg Tablet 20 mg PO DAILY donepezil 10 mg Tablet 10 mg PO HS losartan-hydrochlorothiazide 50-12.5 mg Tablet 1 tablet PO DAILY fluoxetine 20 mg Capsule 20 mg PO DAILY acetaminophen 500 mg capsule 1,000 mg PO Q6H PRN (Reason: pain) Qty: 20 0RF sulfamethoxazole-trimethoprim 800-160 mg tablet 1 tablet PO Q12H Qty: 10 0RF Other Ambulatory Orders: UA w/Micro w/Rfx Cult (Routine) Timeframe: 1 Week Location: Determined by Patient Ordered By: Josephine Mccauley Follow-up/Referrals: Tae Donnelly MD [Primary Care Provider] - Time of Disposition: 00:29
[2023-11-30 20:28] VITALS: BP 139/70; PULSE 57; RESP 14; O2SAT 97
--- NOTE | 2023-11-30 22:16 | PC.NURSE ---
annemarie applied to get a UA from pt. pt has no urine in the canister
[2023-12-01 01:42] VITALS: BP 136/79; PULSE 69; RESP 17; O2SAT 97
== END 2023-12-01 01:43 ==
PROVIDERS: Emergency Provider Physician Assistant; PCP Family Medicine
DX: S00.83XA Contusion of other part of head, initial encounter (principal); S00.33XA Contusion of nose, initial encounter; S00.11XA Contusion of right eyelid and periocular area, initial encounter; R29.6 Repeated falls; F03.90 Unspecified dementia, unspecified severity, without behavioral disturbance, psychotic disturbance, mood disturbance, and anxiety; Z87.891 Personal history of nicotine dependence; W18.30XA Fall on same level, unspecified, initial encounter; R00.1 Bradycardia, unspecified; J32.0 Chronic maxillary sinusitis
CPT/HCPCS: 70450; 70486; 71046; 72125; 73521; 93005; 99284

== ENCOUNTER 2023-12-16 22:04 | Emergency (ER) | payer MEDICARE, SELFPAY ==
--- NOTE | ~2023-12-16 | CT_ITS ---
Noncontrast CT scan of the cervical spine Technique: Multiple contiguous axial [address] images of the cervical spine were obtained and rec onstructed in 2D sagittal and coronal planes on the acquisition scanner. Dose reduction technique was used on this scan by utilizing automated exposure control, adjustment of the mA and/or kV according to patient size. The dose-length product (DLP) was 104.96 mGy-cm. Clinical History: Pain COMPARISON: 11/30/2023 Findings: No acute fracture seen. Stable grade 1 anterolisthesis of C4 over C5 measuring 4.5 mm. Stab le minimal grade 1 anterolisthesis of C3 over C4. There is severe degenerative disc narrowing at C5-C 6 and C6-C7. There is moderate degenerative disc narrowing at C4-C5. Stable facet joint degenerative changes throughout the cervical spine. There is bilateral neural foraminal narrowing, right worse tona n left, at C3-C4. There is bilateral neural foraminal narrowing at C4-C5, C5-C6, and C6-C7. No prever tebral soft tissue swelling. Impression: No acute abnormality. Stable anterolisthesis of C3 over C4, and of C4 over C5, as detailed above. Stable degenerative spondylosis, as above. Reviewed, dictated and finalized at location . Impression: No acute abnormality. Stable anterolisthesis of C3 over C4, and of C4 over C5, as detailed above. Stable degenerative spondylosis, as above.
--- NOTE | ~2023-12-16 | CT_ITS ---
CT head without contrast Indication: Status post fall COMPARISON: 11/30/2023 Technique: Serial scans were obtained through the brain without the administration of contrast. Dose reduction technique was used on this scan by utilizing automated exposure control and iterative recon struction technique. The dose-length product (DLP) was 681.00 mGy-cm. Findings: There is no evidence of intracranial hemorrhage, mass lesion, or acute infarct. The ventri cles and subarachnoid spaces are dilated, consistent with mild to moderate atrophy. Low attenuation regions are seen within the periventricular white matter bilaterally, likely representing changes fro m chronic microvascular ischemic disease. There is no evidence of edema, mass effect or midline shif t. The visualized paranasal sinuses and mastoid air cells are clear. Impression: No intracranial hemorrhage, mass, or acute infarct. Atrophy and chronic white matter changes, as above. Reviewed, dictated and finalized at location . Impression: No intracranial hemorrhage, mass, or acute infarct. Atrophy and chronic white matter changes, as above.
[2023-12-16 22:04] VITALS: BP 144/78; PULSE 58; RESP 12; O2SAT 100
--- NOTE | 2023-12-16 23:06 | ED.FALL ---
HPI - Fall General Chief Complaint: Fall Stated Complaint: unwitnessed fall, axox1 @ baseline, lac to head Time Seen by Provider: 12/16/23 23:03 Source: EMS and RN notes reviewed Mode of arrival: EMS Limitations: dementia History of Present Illness HPI Narrative: Patient presents the EMS after sustaining unwitnessed fall. She was on the toilet with a Bleeding laceration To the back of her head. it was noted that the bathroom cabinet door was ripped off. patient is unable to provide her history is she is alert and oriented x1 which is her baseline. Patient just keeps repeating yeah. EMS applied C-collar. Patient's medication list from the facility does not contain any anticoagulation medications. Related Data Home Medications Medication Instructions Recorded Confirmed atorvastatin 20 mg tablet 20 mg PO DAILY 09/27/22 09/27/22 buspirone 5 mg tablet 5 mg PO BID 09/27/22 09/27/22 donepezil 10 mg tablet 10 mg PO HS 09/27/22 09/27/22 fluoxetine 20 mg capsule 20 mg PO DAILY 09/27/22 09/27/22 losartan 50 mg-hydrochlorothiazide 1 tablet PO DAILY 09/27/22 09/27/22 12.5 mg tablet Allergies Allergy/AdvReac Type Severity Reaction Status Date / Time cefuroxime [From Ceftin] AdvReac Swelling Verified 09/10/23 18:03 of Lip/Tongue/Throat lisinopril AdvReac Swelling Verified 09/10/23 18:03 of Lip/Tongue/Throat PMFSH Past Medical History Medical History Dementia Family History Family History Other Unknown family medical history Social History Social History Social History: Has a daughter Smoking packs per day: 0.5 Smoking cigarettes per day: 10.0 Smoking status: Former smoker Tobacco type: cigarettes Alcohol intake: former Substance use: never Lack of Transportation: No Lack of Food: Never True Current Housing: I Have Housing Concerned About Future Housing: No Difficulty Paying Gas/Electric Bills: No Difficulty Paying for Meds: No Currently Unemployed: No Education: High School Diploma/GED Difficulty w/ Childcare or Family Care: No Living arrangements: assisted living Additional living arrangements comments: [facility] Spiritual care concerns: No Exam Narrative: GENERAL: Well-appearing, well-nourished, and in no acute distress. HEAD: 1.5 cm laceration or posterior scalp, bleeding controlled. EYES: Non injected, non icteric ENT: Nares clear, no rhinorrhea or epistaxis. NECK: Supple. CHEST: Speaking in full sentences. No respiratory distress. HEART: Bradycardic rate and rhythm. ABDOMEN: Soft, nondistended. EXTREMITIES: Normal range of motion. No lower extremity edema. SKIN: Warm, dry. Old ecchymosis along left forehead and oriental orthodox. NEURO: No focal deficits. Alert and oriented x1. PSYCH: Normal mood and affect. Course Vital Signs Vital signs: Vital Signs Pulse Rate 58 L 12/16/23 22:04 Respiratory Rate 12 12/16/23 22:04 Blood Pressure 144/78 H 12/16/23 22:04 Pulse Oximetry 100 12/16/23 22:04 Oxygen Delivery Room Air 12/16/23 22:04 Temperature 97.5 F L 12/17/23 00:47 Pulse Rate 58 L 12/16/23 22:04 Respiratory Rate 12 12/16/23 22:04 Blood Pressure 144/78 H 12/16/23 22:04 Pulse Oximetry 100 12/16/23 22:04 Oxygen Delivery Room Air 12/16/23 22:04 Procedures Laceration Laceration 1: Date: 12/16/23 Time: 23:35 Site: scalp Size (cm): 1.5 Description: linear Depth: simple, single layer Local Anesthetic: none Pre-repair: wound explored and irrigated ====== Skin Level ====== Skin layer closed with: michele Number of sutures: 3 ====== Subcutaneous Layer ====== ====== Muscle Layer ====== ====== Tendon Layer ====== MDM - Fall MDM Narrative Medical decision making narrative: This is a very pleasant 73-year-old female with dementia who presents after unwitnessed fall. She sustained a laceration to the back of her head. Old bruising on oriental orthodox from previous fall. In The emergency department she is afebrile with vital signs notable for mild bradycardia hypertension. Unknown last tetanus. Patient has had multiple falls but appears that none of them had involved laceration previously. For this reason we will update tetanus shot today. Patient has been worked up multiple times for her falls. No etiology has been identified thus I strongly suspect that her underlying dementia is contributing to her mobility issues. no acute issues on imaging today. Patient discharged back to facility stable condition. Prescription for acetaminophen provided Differential Diagnosis Differential diagnosis: Likely concussion with loss of consciousness, concussion without loss of consciousness and other ( Laceration, intracranial hemorrhage, cervical spine fracture or dislocation) Imaging Data Radiologist's impression: CT C spine (stat rad): No acute fracture subluxation of the cervical spine CT Head (Stat Rad): no acute intracranial hemorrhage. No midline shift or mass effect. The territorial horan-white matter differentiation is maintained throughout. Age-related cerebral volume loss. Periventricular and subcortical white matter hypoattenuation, consistent with chronic microangiopathy. Impressions Cervical Spine CT 12/17/23 06:18 Impression: No acute abnormality. Stable anterolisthesis of C3 over C4, and of C4 over C5, as detailed above. Stable degenerative spondylosis, as above. Head CT 12/17/23 06:18 Impression: No intracranial hemorrhage, mass, or acute infarct. Atrophy and chronic white matter changes, as above. Discharge Plan Discharge Clinical Impression: Multiple falls, Microangiopathy Laceration of head Qualifiers: Encounter type: initial encounter Location of open wound of head: scalp Foreign body presence: without foreign body Qualified Code(s): S01.01XA - Laceration without foreign body of scalp, initial encounter Patient Disposition: [facility] Nursing Home/Asst Living Condition: Stable Instructions: Antibiotic Form, Fall Prevention for Older Adults (ED), Staple Care (ED), Head Laceration (ED) Additional Instructions: Patient required 3 michele for the laceration on the back of her head. These will need to be removed in 7 days. This can either be done at the facility, by presenting to an urgent care or emergency department, or following up primary care physician. Patient has had multiple falls which have previously been worked up extensively without identifying a cause thus this appears to be due to her dementia causing mobility issues. Return to the emergency department with any new or worsening symptoms. Because patient may have difficulty expressing when she is in pain, recommend offering her acetaminophen over the next several days. Prescriptions: New acetaminophen 500 mg capsule 1,000 mg PO Q6H PRN (Reason: pain) Qty: 20 0RF No Action buspirone 5 mg Tablet 5 mg PO BID atorvastatin 20 mg Tablet 20 mg PO DAILY donepezil 10 mg Tablet 10 mg PO HS losartan-hydrochlorothiazide 50-12.5 mg Tablet 1 tablet PO DAILY fluoxetine 20 mg Capsule 20 mg PO DAILY acetaminophen 500 mg capsule 1,000 mg PO Q6H PRN (Reason: pain) Qty: 20 0RF sulfamethoxazole-trimethoprim 800-160 mg tablet 1 tablet PO Q12H Qty: 10 0RF Follow-up/Referrals: Tae Donnelly MD [Primary Care Provider] - Stand Alone Forms: Shelter Discharge Time of Disposition: 01:02
[2023-12-17] MEDS: ACETAMINOPHEN 500 MG TABLET 1000 MG PO (00:25)
[2023-12-17] MEDS: TETANUS,DIPHTHERIA,AC PERTUSSIS ADULT (0.5 ML) BOOSTRIX IM (00:28)
--- NOTE | 2023-12-17 00:32 | PC.NURSE ---
Pt pulled up in bed for comfort and blanket given.
[2023-12-17 00:47] VITALS: TEMP 36.4
== END 2023-12-17 02:27 ==
PROVIDERS: Emergency Provider Student in an Organized Health Care Education/Training Program; PCP Family Medicine
DX: S01.01XA Laceration without foreign body of scalp, initial encounter (principal); W19.XXXA Unspecified fall, initial encounter; F03.90 Unspecified dementia, unspecified severity, without behavioral disturbance, psychotic disturbance, mood disturbance, and anxiety; Z87.891 Personal history of nicotine dependence; Z23 Encounter for immunization
CPT/HCPCS: 12001; 70450; 72125; 90471; 90715; 99284; A9270; L0140

== ENCOUNTER 2024-02-11 19:41 | Emergency (ER) | payer MEDICARE, SELFPAY ==
--- NOTE | ~2024-02-11 | CT_ITS ---
EXAMINATION: CT facial & cervical spine wo DATE: 02/11/2024 20:41 INDICATION: head injury TECHNIQUE: Computed tomography (CT) of the maxillofacial region and cervical spine was performed with out intravenous contrast. Automated exposure control and iterative reconstruction technique were empl oyed. The dose-length product was 161.99 mGy-cm. COMPARISON: 11/30/2023 FINDINGS: CERVICAL: Vertebral Body Alignment: Stable multilevel grade 1 listheses, likely on a degenerative basis. Craniocervical and atlantoaxial alignment: Moderate degenerative change. Alignment intact. Osseous structures/fracture: No evidence of a lytic or blastic process in the visualized spine. No e vidence of acute fracture. Cervical soft tissues: The paraspinal soft tissues planes are maintained. Degenerative changes: Degenerative changes, without severe neural foraminal or central canal narrowin g. FACE: Soft Tissues: Soft tissue swelling over the left eye, left cheek, and left mandible. Facial bones: No acute fracture. No lytic or blastic process. Eyes: The globes are intact. The soft tissue planes of the orbits are maintained. Paranasal Sinuses: Trace left mastoid fluid. Mild bilateral maxillary mucosal thickening. Foreign Bodies: No radiopaque foreign bodies. Other Findings: Multiple periapical lucencies. IMPRESSION: No acute fracture or traumatic malalignment in the cervical spine. No acute facial bone fracture. Periodontal disease. Reviewed, dictated and finalized at location K. AL AGENT IMPRESSION: No acute fracture or traumatic malalignment in the cervical spine. No acute fac ial bone fracture. Periodontal disease.
--- NOTE | ~2024-02-11 | CT_ITS ---
EXAMINATION: CT brain wo con DATE: 02/11/2024 20:41 INDICATION: head injury . TECHNIQUE: Computed tomography (CT) of the head was performed without intravenous contrast. The mA wa s adjusted according to patient size. Iterative reconstruction technique was employed. The dose-lengt h product was 605.33 mGy-cm. COMPARISON: 12/16/2023. FINDINGS: No acute intracranial hemorrhage or extra-axial fluid collection. No hydrocephalus, mass, or herniation. No acute ischemic infarct. Unremarkable dural venous sinus attenuation. No acute osseous abnormality. Trace left mastoid fluid, mild bilateral maxillary mucosal thickening, the remaining aerated spaces a re clear. Mild atrophy and chronic white matter change. Atherosclerotic intracranial calcification. Bilateral l ens replacements. IMPRESSION: No acute intracranial process. Reviewed, dictated and finalized at location K. C PUBLISHER
[2024-02-11 19:42] VITALS: BP 141/71; PULSE 66; RESP 17; TEMP 36.9; O2SAT 95
--- NOTE | 2024-02-11 19:59 | ED.FALL ---
HPI - Fall General Chief Complaint: Fall Stated Complaint: Fall-head pain, lip lac. No thinners Time Seen by Provider: 02/11/24 19:56 History of Present Illness HPI Narrative: Patient is a 73-year-old female who presents to the emergency department this evening from her long term status post fall. Patient did sustain a head injury and a lip laceration. Patient is alert and oriented x1 which is her baseline secondary to history of dementia. Patient was seen at our facility status post fall this past November and had her tetanus updated at that time. No anticoagulation use per review of patient's list of medications. Patient is moving all 4 extremities spontaneously. The remainder of the history of present illness review of systems limited secondary to patient's dementia. Related Data Home Medications ?Medication ?Instructions ?Recorded ?Confirmed ?Last Taken ?Type atorvastatin 20 mg tablet 20 mg PO DAILY 09/27/22 09/27/22 Unknown History buspirone 5 mg tablet 5 mg PO BID 09/27/22 09/27/22 Unknown History donepezil 10 mg tablet 10 mg PO HS 09/27/22 09/27/22 Unknown History fluoxetine 20 mg capsule 20 mg PO DAILY 09/27/22 09/27/22 Unknown History losartan 50 mg-hydrochlorothiazide 1 tablet PO DAILY 09/27/22 09/27/22 Unknown History 12.5 mg tablet Allergies Allergy/AdvReac Type Severity Reaction Status Date / Time cefuroxime (From Ceftin) AdvReac Swelling Verified 09/10/23 18:03 of Lip/Tongue/Throat lisinopril AdvReac Swelling Verified 09/10/23 18:03 of Lip/Tongue/Throat Review of Systems Review of Systems: Unable to obtain a full review of systems secondary to patient's severe dementia. [facility] Past Medical History Medical History Dementia Family History Family History Other Unknown family medical history Social History Social History Social History: Has a daughter Smoking packs per day: 0.5 Smoking cigarettes per day: 10.0 Smoking status: Former smoker Tobacco type: cigarettes Alcohol intake: former Substance use: never Lack of Transportation: No Lack of Food: Never True Current Housing: I Have Housing Concerned About Future Housing: No Difficulty Paying Gas/Electric Bills: No Difficulty Paying for Meds: No Currently Unemployed: No Education: High School Diploma/GED Difficulty w/ Childcare or Family Care: No Living arrangements: assisted living Additional living arrangements comments: [facility] Spiritual care concerns: No Exam Narrative: General: Awake, afebrile, in no acute distress. HEENT: PERRL, no rhinorrhea, no post nasal drip, oropharynx clear, through and through irregular upper lip laceration not involving the lip margin or vermilion border, hematoma to left eyebrow. Neck: Trachea midline, no JVD, no lymphadenopathy. Cardiovascular: Regular rate and rhythm, no murmurs, rubs or gallops, no peripheral edema. Respiratory: Clear to auscultation bilaterally, no tachypnea, no wheezing, no rhonchi, no rubs, no respiratory distress. Abdomen: Soft, nontender, nondistended, no rebound, no guarding, no peritoneal signs. Musculoskeletal: No joint swelling or deformity, normal muscle tone. Skin: No rashes or petechia, no signs of infection. Neurological: Alert and oriented x1 at baseline. Follows all commands. Moving all extremities spontaneously. No focal deficits, speech is clear and fluent. Course Vital Signs Vital signs: Vital Signs Temperature 98.4 F 02/11/24 19:42 Pulse Rate 66 02/11/24 19:42 Respiratory Rate 17 02/11/24 19:42 Blood Pressure 141/71 H 02/11/24 19:42 Pulse Oximetry 95 02/11/24 19:42 Oxygen Delivery Room Air 02/11/24 19:42 Temperature 98.4 F 02/11/24 19:42 Pulse Rate 71 02/11/24 20:16 Respiratory Rate 16 02/11/24 20:16 Blood Pressure 138/69 02/11/24 20:16 Pulse Oximetry 97 02/11/24 20:16 Oxygen Delivery Room Air 02/11/24 19:42 Procedures Laceration Laceration 1: Date: 02/11/24 Time: 21:21 Site: lip Size (cm): 1 Description: irregular Depth: simple, single layer Local Anesthetic: lidocaine 1% Amount of anesthesia used (mL): 2 Pre-repair: wound explored and irrigated ====== Skin Level ====== Skin layer closed with: nylon Size (cm): 5-0 Number of sutures: 2 Technique: simple, interrupted ====== Subcutaneous Layer ====== ====== Muscle Layer ====== ====== Tendon Layer ====== MDM - Fall MDM Narrative Medical decision making narrative: The patient was evaluated by myself in the emergency department. History is obtained from EMS report and physical exam was performed. External medical records were reviewed at this time. IV was established and pertinent tests were ordered. Upper lip laceration was repaired as he is still under procedural note. Patient tolerated procedure well. Imaging studies obtained included CT brain, C-spine, facial bones without IV contrast which was independently interpreted by me revealing no acute fractures, which is pending final radiology interpretation. Differential diagnosis considerations include fractures, dislocations, lacerations, abrasions, intracranial hemorrhage. Comorbidities impacting this visit include history of dementia. I have evaluated and discussed social determinants of health with the patient that could potentially impact subsequent diagnosis and treatment plans. On repeat assessment of the patient, reevaluation revealed that the patient is doing well and is in no acute distress. Patient symptoms have improved since she arrived to our emergency department. Repeat vital signs were all reviewed and noted to be stable. Differential diagnosis and treatment plan were discussed with the patient at bedside. Patient agrees with discussion and after shared medical decision making agrees with discharge. All questions were answered to the patient's satisfaction. Patient will follow up with her PCP in 5-7 days. She was informed that the 2 stitches that were placed today need to be removed by medical professional within the next 5-7 days. Patient was provided with strict return precautions and instructed to return to the emergency department if any new or worsening symptoms develop. The patient was discharged in stable condition. Discharge Plan Discharge Clinical Impression: Fall from ground level, Head injury, Blunt trauma of face, Laceration Patient Disposition: SNF Condition: Improved Instructions: Laceration (ED), Fall Prevention for Older Adults (ED), Head Injury (ED) Additional Instructions: Please follow-up with your family doctor within the next 5-7 days to have your sutures removed. Two sutures were placed to your upper lip laceration. Return to emergency department for any new or worsening symptoms develop. Patient Language: Turkmen Prescriptions: No Action buspirone 5 mg Tablet 5 mg PO BID atorvastatin 20 mg Tablet 20 mg PO DAILY donepezil 10 mg Tablet 10 mg PO HS losartan-hydrochlorothiazide 50-12.5 mg Tablet 1 tablet PO DAILY fluoxetine 20 mg Capsule 20 mg PO DAILY acetaminophen 500 mg capsule 1,000 mg PO Q6H PRN (Reason: pain) Qty: 20 0RF acetaminophen 500 mg capsule 1,000 mg PO Q6H PRN (Reason: pain) Qty: 20 0RF sulfamethoxazole-trimethoprim 800-160 mg tablet 1 tablet PO Q12H Qty: 10 0RF Follow-up/Referrals: Tae Donnelly MD [Primary Care Provider] - 1 Week Time of Disposition: 21:14
[2024-02-11 20:16] VITALS: BP 138/69; PULSE 71; RESP 16; O2SAT 97
[2024-02-11 23:49] VITALS: BP 102/65; PULSE 65; RESP 19; O2SAT 93
[2024-02-12 05:29] VITALS: BP 126/70; PULSE 63; RESP 18; O2SAT 95
[2024-02-12 05:30] VITALS: BP 126/70; PULSE 63; RESP 18; O2SAT 95
--- NOTE | 2024-02-12 05:34 | PC.NURSE ---
This RN called [facility] and gave an update about ETA and POC.
== END 2024-02-12 05:35 ==
PROVIDERS: Emergency Provider Emergency Medicine; PCP Family Medicine
DX: S01.511A Laceration without foreign body of lip, initial encounter (principal); S00.12XA Contusion of left eyelid and periocular area, initial encounter; F03.90 Unspecified dementia, unspecified severity, without behavioral disturbance, psychotic disturbance, mood disturbance, and anxiety; Z87.891 Personal history of nicotine dependence; Z79.899 Other long term (current) drug therapy; K05.6 Periodontal disease, unspecified; W19.XXXA Unspecified fall, initial encounter
CPT/HCPCS: 70450; 70486; 72125; 99284

== ENCOUNTER 2024-05-04 20:09 | Emergency (ER) | payer MEDICARE, SELFPAY ==
--- NOTE | ~2024-05-04 | XR_ITS ---
EXAMINATION: XR chest 1V Exam Date/Time: 05/04/2024 21:35 CDT HISTORY: fall Comparison: 11/30/2023. RESULT: Lines, tubes, and devices: None. Lungs and pleura: No focal consolidation, pleural effusion, or pneumothorax. Biapical pleural scarri ng. Cardiomediastinal silhouette: Stable. Other: No acute osseous or upper abdominal finding. Old distal right clavicular fracture deformity. IMPRESSION: No acute cardiopulmonary process. Reviewed, dictated and finalized at location K.
--- NOTE | ~2024-05-04 | CT_ITS ---
EXAMINATION: CT brain wo con DATE: 05/04/2024 21:54 INDICATION: fall . TECHNIQUE: Computed tomography (CT) of the head was performed without intravenous contrast. The mA wa s adjusted according to patient size. Iterative reconstruction technique was employed. The dose-lengt h product was 681.00 mGy-cm. COMPARISON: 02/11/2024. FINDINGS: No acute intracranial hemorrhage or extra-axial fluid collection. No hydrocephalus, mass, or herniation. No acute ischemic infarct. Unremarkable dural venous sinus attenuation. No acute osseous abnormality. Minimal right maxillary mucosal thickening, the remaining aerated spaces are clear. Mild atrophy and chronic white matter change. Atherosclerotic intracranial calcification. Bilateral l ens replacements. IMPRESSION: No acute intracranial process. Reviewed, dictated and finalized at location K.
--- NOTE | ~2024-05-04 | CT_ITS ---
EXAMINATION: CT cervical spine wo con DATE: 05/04/2024 21:55 INDICATION: fall TECHNIQUE: Computed tomography (CT) of the cervical spine was performed without intravenous contrast. Automated exposure control and iterative reconstruction technique were employed. The dose-length pro duct was 165.14 mGy-cm. COMPARISON: 02/11/2024. FINDINGS: Vertebral Body Alignment: Intact. Stable multilevel grade 1 listheses, on a degenerative basis. Craniocervical and atlantoaxial alignment: Moderate degenerative change. Alignment intact. Osseous structures/fracture: No evidence of a lytic or blastic process in the visualized spine. No e vidence of acute fracture. Cervical soft tissues: The paraspinal soft tissues planes are maintained. Biapical pleural scarring. Degenerative changes: Degenerative changes, without severe neural foraminal or central canal narrowin g. IMPRESSION: No acute fracture or traumatic malalignment in the cervical spine. Reviewed, dictated and finalized at location K.
--- NOTE | ~2024-05-04 | XR_ITS ---
EXAM: XR pelvis 1-2V DATE: 05/04/2024 21:41 HISTORY: fall . COMPARISON: 11/30/2023. FINDINGS: Partially visualized lumbar fusion hardware. Degenerative changes in the lumbar spine and bilateral hips. Decreased mineralization. No fracture or dislocation. IMPRESSION: No acute osseous finding in the pelvis. Reviewed, dictated and finalized at location K.
--- OUTSIDE RECORDS SUMMARY | 2024-05-04 20:11 | XMS_ITS | Referral Summary ---
Author Organization [facility] at the Medical Office Building Address [address] [place] [id number] Care Team Providers Care Windows Software Engineer Name Role Phone Eric Craft Primary Care Provider [phone] Allergies Active Allergy Reactions Criticality Noted Date Comments Cefuroxime Angioedema High 01/17/2022 Lisinopril Angioedema High 01/17/2022 Medications multivit-min/fe rrous fumarate (MULTI VITAMIN ORAL) Take by mouth daily Active atorvastatin (LIPITOR) 20 mg tablet Take 1 tablet (20 mg total) by mouth daily 90 tablet 3 03/14/2022 Active busPIRone (BUSPAR) 5 mg tablet Take 1 tablet (5 mg total) by mouth 2 (two) times a day Active thiamine (VITAMIN B-1) 100 mg tablet Take 1 tablet (100 mg total) by mouth daily 10/06/2022 Active donepeziL (ARICEPT) 10 mg tablet Take 1 tablet (10 mg total) by mouth nightly 30 tablet 11 10/10/2022 Active sertraline (ZOLOFT) 100 mg tablet Take 1 tablet (100 mg total) by mouth daily 12/04/2022 Active memantine (NAMENDA) 5 mg tabletIndicatio ns:Moderate to Severe Alzheimer's Type Dementia Take 2 tablets (10 mg total) by mouth 2 (two) times a day 120 tablet 01/03/2023 Active Active Problems Problem Noted Date Diagnosed Date Routine general medical exam ination at a health care facility 01/16/2022 Assessment & Plan (01/24/2022 2:50 PM BOOK PACKER): HEALTHCARE MAINTENANCE updated Mixed hyperlipidemia 10/06/2019 Situational mixed anxiety and depressive disorde r 10/06/2019 Esophageal diverticulum 05/10/2018 Achalasia of esophagus 05/10/2018 Chronic blood loss anemia 05/09/2018 Spondylolisthesis, grade 2 08/17/2015 Spinal stenosis of lumbar re gion with neurogenic claudication 08/17/2015 Osteopenia 12/19/2010 Raynaud's disease 12/19/2010 Hypertension Assessment & Plan (02/08/2022 3:26 PM BOOK PACKER): Images from the original note were not included. This is a stable chronic condition. Monitor blood pressure, call if out of parameters as we discussed. Low sodium and caffeine diet. baby asa as discussed if applicable. Diet, exercise and weight reduction. Labs as ordered. F/U routine Assessment & Plan (01/24/2022 2:50 PM BOOK PACKER): Images from the original note were not included. This is a stable chronic condition. Monitor blood pressure, call if out of parameters as we discussed. Low sodium and caffeine diet. baby asa as discussed if applicable. Diet, exercise and weight reduction. Labs as ordered. F/U routine Alzheimer's dementia Assessment & Plan (02/08/2022 3:36 PM BOOK PACKER): Mild, increasing aricept, will follow, she is seen Psychiatry and Neurology down the road Assessment & Plan (01/24/2022 2:52 PM BOOK PACKER): Does not appers to be doing well per family, will do aditional work up Mild episode of recurrent major depressive disor jenny Assessment & Plan (02/08/2022 3:26 PM BOOK PACKER): Well controlled, CPM Assessment & Plan (01/24/2022 2:49 PM BOOK PACKER): Well controlled with no SI/HI, CPM, f/u routine Immunizations Immunization Administration Dates Next Due Influenza, Trivalent, High D ose, Split, Preservative Free, Intramuscular 01/22/2017,01/08/2015 Influenza, Trivalent, IM (MDV) 12/05/2013,2011 Moderna SARS-CoV-2 Monovalent Vaccination (12+ Y RS) 04/21/2020,03/19/2020 Pneumococcal Conjugate PCV 13 01/08/2015 Pneumococcal Polysaccharide PPV23 08/23/2016 Tdap 06/13/2012,05/20/2012 ZOSTER LIVE 03/29/2012 Social History Tobacco Use Types Packs/Day Years Used Date Smoking Tobacco: Former Cigarettes AUDIT-C Answer Date Recorded Q1: How often do you have a drink containing alc ohol? Monthly or less 04/06/2022 Q2: How many drinks containi ng alcohol do you have on a typical day when you are drinking? 1 or 2 04/06/2022 Q3: How often do you have si x or more drinks on one occasion? Never 04/06/2022 PHQ-2 Answer Date Recorded PHQ-2 Total Score (If total score is 3 or more points, staff should administer the PHQ-9) 6 01/17/2022 Personal Safety Answer Date Recorded Getting School Help Needed Not on file 03/04 Comments No Sex and Gender Information Value Date Recorded Sex Assigned at Not on file Legal Sex Female 9:06 AM BOOK PACKER Gender Identity Female 01/17/2022 6:41 PM BOOK PACKER Sexual Orientation Straight 01/17/2022 6: 41 PM BOOK PACKER Last Filed Vital Signs Vital Sign Reading Time Taken Comments Blood Pressure 129/74 01/03/2023 2:40 PM BOOK PACKER Pulse 79 01/03/2023 2:40 PM BOOK PACKER Temperature 36.4 C (97.5 F) 03/14/2022 10:55 AM BOOK PACKER Respiratory Rate 18 03/14/2022 10:55 AM BOOK PACKER Oxygen Saturation 99% 03/14/2022 10:55 AM BOOK PACKER Inhaled Oxygen Concentration - - Weight 61.7 kg (136 lb) 01/03/2023 2:40 PM BOOK PACKER Height 162.6 cm (5' 4 ) 01/03/2023 2:40 PM BOOK PACKER Body Mass Index 23.34 01/03/2023 2:40 PM BOOK PACKER Plan of Treatment Not on file Procedures Procedure Name Priority Date/Time Associated Diagnosis Comments SCREENING MAMMOGRAM BILATERAL W SHWETA Schedule Routine, Read Routine (OP Routine) 07/21/2022 4:06 PM CDT Encounter for screening mammogram for malignant neoplasm of breast DEXA AXIAL SKELETON BONE DENSITY 1 OR MORE SITES Schedule Routine, Read Routine (OP Routine) 07/21/2022 3:59 PM CDT Menopause HEPATITIS C ANTIBODY Routine 01/17/2022 2:33 PM BOOK PACKER Need for hepatitis C screening test from Last 3 Months or Most Recently Relevant to Health Maintenance Results * (ABNORMAL) Screening Mammogram Bilateral W Shweta (07/21/2022 4:06 PM CDT) Anatomical Region Laterality Modality Breast Bilateral Mammography Impressions 07/21/2022 4:22 PM CDT BI-RADS ATLAS category (overall): 0 - Incomplete: Needs Additional Imaging Evaluation 1. Indeterminate left breast findings. Further evaluation with diagnostic left mammography and possible diagnostic left breast ultrasound is recommended. 2. No mammographic evidence of malignancy in the right breast. Routine screening mammography of the right breast is recommended in 1 year. The patient has been or will be contacted. Narrative 07/21/2022 4:22 PM CDT Screening Mammogram Bilateral W Shweta: 07/21/22 The study was acquired using full field digital technology and interpreted from soft copy. 2D digital mammographic views, as well as 3D digital tomosynthesis were performed in the CC and MLO projections. CLINICAL: Encounter for screening mammogram for malignant neoplasm of breast. No relevant medical history has been documented for this patient. History of breast cancer in Sister, Mother's Sister. COMPARISON: New Baseline Screening Mammography. No prior mammography is available for comparison. BREAST TISSUE: The breasts are heterogeneously dense, which may obscure small masses. FINDINGS: Suboptimal examination secondary to difficulty with patient positioning related to the patient's physical condition. There are vascular calcifications and other benign calcifications in both breasts. There is a biopsy marking clip in the lateral right breast, middle depth. There is a left breast MLO view asymmetry superior to the nipple, posterior depth. There is a left breast CC view asymmetry central or slightly lateral to the nipple, posterior depth. There are no suspicious findings in the right breast on mammogram. Eric RIVAS IMG MAMMO PROCEDURES Final Resu lt * Dexa Axial Skeleton Bone Density 1 or 2 Site (07/21/2022 3:59 PM CDT) Anatomical Region Laterality Modality Body N/A Mammography 07/22/2022 11:1 2 PM CDT Narrative 07/22/2022 11:21 PM CDT EXAM DESCRIPTION: DEXA AXIAL SKELETON BONE DENSITY 1 OR MORE SITES REASON FOR STUDY: 72 y/o year old F with given history of screening. Postmenopausal Digital Marketing Associate/Model: [facility] (S/N [id number]) CLINICAL INFORMATION: Current height: 61.5 inches Maximum height: 63 inches Weight: 145 pounds Risk factors: Postmenopausal, adult fracture COMPARISON: None available FINDINGS: Right forearm: 33% radius BMD is 0.605 g/cm2 T-score is -1.5 LEFT HIP: Total BMD is 0.783 g/cm2 T-score is -1.3 Femoral neck BMD is 0.674 g/cm2 T-score is -1.6 FRAX: 10 year risk for a major osteoporotic fracture is 17 %, 10 year risk for a hip fracture is 2.8 % IMPRESSION: Low Bone Mass. REFERENCE: Bone mineral density: Normal (T-score above or = -1.0) Low bone mass (T-score between -1.0 and -2.5) replaces the previously used term osteopenia Osteoporosis (T-score = or below -2.5) Medical evaluation for secondary causes of low bone mineral density may be appropriate. FRAX is a World Health Organization validated fracture risk assessment tool that calculates a person's 10 year probability of a major osteoporosis related fracture and hip fracture. According to the National Osteoporosis Foundation guidelines, postmenopausal women and men age 50 or older with low bone mass and a 10 year probability of a major osteoporosis related fracture = or greater than 20% or a 10 year probability of a hip fracture = or greater than 3% should be considered for treatment. For further information, including treatment recommendations, please refer to the 2019 ISCD Official Positions (http://www.iscd.org) and the NOF's Clinician's Guide to Prevention and Treatment of Osteoporosis (http://www.nof.org/professionals/clinical-guidelines) THIS IS AN ELECTRONICALLY VERIFIED FINAL REPORT 07/22/2022 11:21 PM - Electronically signed by Christopher Morgan M.D. MF: CEDRIC Report ID: [id number] Reading Location: [id number] Procedure Note Christopher Morgan MD - 07/22/2022 EXAM DESCRIPTION: DEXA AXIAL SKELETON BONE DENSITY 1 OR MORE SITES REASON FOR STUDY: 72 y/o year old F with given history of screening. Postmenopausal Digital Marketing Associate/Model: [facility] (S/N [id number]) CLINICAL INFORMATION: Current height: 61.5 inches Maximum height: 63 inches Weight: 145 pounds Risk factors: Postmenopausal, adult fracture COMPARISON: None available FINDINGS: Right forearm: 33% radius BMD is 0.605 g/cm2 T-score is -1.5 LEFT HIP: Total BMD is 0.783 g/cm2 T-score is -1.3 Femoral neck BMD is 0.674 g/cm2 T-score is -1.6 FRAX: 10 year risk for a major osteoporotic fracture is 17 %, 10 year risk for ahip fracture is 2.8 % IMPRESSION: Low Bone Mass. REFERENCE: Bone mineral density: Normal (T-score above or = -1.0) Low bone mass (T-score between -1.0 and -2.5) replaces thepreviously used term osteopenia Osteoporosis (T-score = or below -2.5) Medical evaluation for secondary causes of low bone mineral density may be appropriate. FRAX is a World Health Organization validated fracture risk assessmenttool that calculates a person's 10 year probability of a major osteoporosisrelated fracture and hip fracture. According to the National OsteoporosisFoundation guidelines, postmenopausal women and men age 50 or older with low bonemass and a 10 year probability of a major osteoporosis related fracture = or greater than 20% or a 10 year probability of a hip fracture = or greaterthan 3% should be considered for treatment. For further information, including treatment recommendations, please referto the 2019 ISCD Official Positions (http://www.iscd.org) and the NOF's Clinician's Guide to Prevention and Treatment of Osteoporosis (http://www.nof.org/professionals/clinical-guidelines) THIS IS AN ELECTRONICALLY VERIFIED FINAL REPORT 07/22/2022 11:21 PM - Electronically signed by Christopher Morgan M.D. MF: CEDRIC Report ID: [id number] Reading Location: [place] [address] Eric RIVAS IMG DXA PROCEDURES Final Result * Hepatitis C antibody (01/17/2022 2:33 PM BOOK PACKER) Hep C Ab Nonreactive Nonreactive LOREE DICKINSON Comment: Interpretive Data Nonreactive: Antibodies to HCV not detected. Does NOT exclude the possibility of recent exposure to HCV. Equivocal: Equivocal for HCV antibodies. Supplemental molecular testing will be automatically performed to determine infection status in accordance with current CDC screening recommendations. Reactive: Positive for HCV antibodies. This may represent current or past HCV infection. Supplemental molecular testing will be automatically performed to determine current infection status in accordance with current CDC screening recommendations. Interpretive data was last revised on 2019. Blood 01/17/2022 2:33 PM BOOK PACKER 01/17/2022 5:01 PM BOOK PACKER Eric [facility] Final Result [facility] [address] [facility] Department [place] [address] from Last 3 Months or Most Recently Relevant to Health Maintenance Insurance HU[employer]NA MEDICARE HMO HUMANA MEDICARE HMO HUMANA MEDICARE HMO Care Teams Windows Software Engineer Relationship Specialty Start Date End Date Eric Craft PA PCP - General Family Medicine 01/17/22
--- OUTSIDE RECORDS SUMMARY | 2024-05-04 20:11 | XMS_ITS | Data Portability ---
Author Organization [place] - [facility] - Pako mcgowan, [facility] Address [address] [place] [address] Assessment Encounter Date Assessment Date Assessment LastModified by Organization Details LastModified Time 11/16/2021 11/16/2021 I have reviewed the RPM candidate and the patient has agreed. The medication management approach I select for this patient is Start/Adjust/ Stop. [email or web address] Not available 11/16/2021 16:28:31 Plan of Treatment Reminders Order Date Submit Date Provider Last Modified By Organization Details Last Modified Time Details Appointments None recorded. Lab lipid panel, serum 2021 022 [facility], [address] [place], [place] [address]R[place], [address], 3 04:28:48 CBC 2021 022 [facility], [address] [place], [place] [address], [address], 3 04:28:48 CMP, serum or plasma 2021 022 [facility], [address] [place], [place] [address], [address], 3 04:28:48 HbA1c (hemoglobin A1c), blood 2021 022 [facility], [address] [place], [place] [address], [address], 3 04:28:48 TSH, serum or plasma 2021 022 [facility], [address] [place] [address], [address], 3 04:28:49 T4, free, serum 2021 022 [facility] [place] [facility], [address] [place] [address], [address], 3 04:28:49 T3, total, serum 2021 022 [facility] [place] [facility], [address] [place] [address], [address], 3 04:28:49 vitamin D, 25-hydroxy, total, serum 2021 022 [facility], [address] [place] [address], [address], 3 04:28:49 vitamin B12, serum 2021 022 [facility], [address] [place] [address], [address], 3 04:28:50 Referral neuropsycho logist referral 2021 022 [facility] - Dr. Adolfo Juarez MD, [address] [place], [address], 3 04:28:50 neurologist referral 2021 [facility] - Dr. Adolfo Juarez MD, [address] [place], [address], 15:24:13 Procedures None recorded. Surgeries None recorded. Imaging None recorded. Medication Orders donepezil 5 mg tablet 2021 [facility], [address] [place], [address], 16:32:03 losartan 50 mg-hydrochl orothiazide 12.5 mg tablet 2021 [facility], [address], [place], [address], 15:12:16 Adult Low Dose Aspirin 81 mg tablet,zach yed release 2021 [facility], [address], [place], [address], 15:12:16 Patient TargetsNo targets recorded. Patient Instructions Encounter Date Encounter Id Patient Instructions Last Modified By Organization Details Last Modified Time 11/16/2021 [id number] home monitoring* [email or web address] Not availabl e 11/29/2021 15:07:30 Reason for Referral Neurologist Referral for Dem entia with behavioral disturbance Referring Physician: [facility], Encounter Date: 10/05/2021 Neuropsychologist Referral f or Dementia Referring Physician: [facility], Encounter Date: 11/16/2021 Problems Name Problem SNOMED Code Status Onset Date Resolution Date Notes Provider Name and Address Organization Details Recorded Time Essential hypertension 44743544 Active 2021 BARI Morris, [place] - [facility] - [facility] 14:43:29 Hyperlipidemia 24735727 Active 2021 BARI Morris null, [facility] - [facility] 14:43:43 Major depressive disorder 330018596 Active 2021 BARI Morris, [facility] 2 14:43:50 Problem Notes None recorded. Medical Equipment None Reported. Allergies Allergen ID Allergen Name Allergen Category Reaction Reaction Severity Criticality Documentation Date Start Date Code Code System Note Provider Name and Address Organization Details Recorded Time 834689 cefuroxim e Not available Not available Not available Not available 10/05/2021 2194 RxNorm BARI Morris [facility] 2 14:42:11 [id number] lisinopri l medicatio n Not available Not available Not available 10/05/2021 25636 RxNorm BARI Morris [facility] 2 14:43:05 Medications Name Sig Start Date Stop Date Status Note LastModified by Organization Details LastModified Time donepezil 5 mg tablet Take 1 tablet every day by oral route. active Not Available Not Available No t Available atorvastatin 10 mg tablet 10/05 completed Not Available Not Available Not Available ciprofloxaci n 500 mg tablet TAKE 1 TABLET BY MOUTH TWICE DAILY 10/05 completed Not Available Not Available Not Available losartan 50 mg-hydrochlo rothiazide 12.5 mg tablet Take 1 tablet every day by oral route for 90 days. active Not Available Not Available No t Available fluoxetine 20 mg capsule Take 1 capsule every day by oral route for 60 days. 10/05 completed Not Available Not Available Not Available Adult Low Dose Aspirin 81 mg tablet,delay ed release Take 1 tablet every day by oral route. 2021 active Not Available Not Available Not Avai lable escitalopram 5 mg tablet 10/05 completed Not Available Not Available Not Available Vitals Date Recorded Body height Body mass index (BMI) Body weight Body temperature Heart rate Oxygen saturation Oxygen saturation in Arterial blood by Pulse oximetry Systolic blood pressure Diastolic blood pressure Provider Name and Address Organization Details Last Updated DateTime 2 160.02 cm 26.8 kg/m2 09425.2 5 g 97.2 [degF] 82 /min 97 % 97 % 122 mm[Hg] 80 mm[Hg] BARI Morris [facility] 2 14:39:46 Date Recorded Body height Body mass index (BMI) Body weight Body temperature Heart rate Oxygen saturation Oxygen saturation in Arterial blood by Pulse oximetry Systolic blood pressure Diastolic blood pressure Provider Name and Address Organization Details Last Updated DateTime 160.02 cm 26.6 kg/m2 02600.5 6 g 97.8 [degF] 78 /min 99 % 99 % 140 mm[Hg] 80 mm[Hg] Margo LindsayBARI tucker [place] - [facility] [place] 16:16:34 Social History Question Answer Notes LastModified by Organizat ion Details LastModified Time Tobacco Smoking Status Never Smoker Margo BARI Wang null, [place] - [facility] [place] 10/05/2021 14:45:06 What Is Your Level Of Alcohol Consumption? Occasional Information not available 10/05/2021 Are You Blind Or Do You Have Difficulty Seeing? No Information not available 10/05/2021 What Is Your Level Of Caffeine Consumption? Occasional Information not available 10/05/2021 Are You Deaf Or Do You Have Serious Difficulty Hearing? No Information not available 10/05/2021 What Type Of Diet Are You Following? REGULAR Information not available 10/05/2021 What Was The Date Of Your Most Recent Tobacco Screening? 10/05/2021 Information not available 10/05/2021 What Is Your Relationship Status? Information not available 10/05/2021 Do You Use Your Seat Belt Or Car Seat Routinely? Yes Information not available 10/05/2021 Do You Use Any Illicit Or Recreational Drugs? No Information not available 10/05/2021 Has Tobacco Cessation Counseling Been Provided? No Information not available 10/05/2021 Do You Or Have You Ever Used Any Other Forms Of Tobacco Or Nicotine? No Information not available 10/05/2021 Sex: Female Functional Status Question Answer Note LastModified by Organization D etails LastModified Time Do you have difficulty walking or climbing stairs? No Information not available 10/05/2021 Do you have difficulty doing errands alone? No Information not available 10/05/2021 Are you able to care for yourself? Yes Information n ot available 10/05/2021 Do you have difficulty dressing or bathing? No Information not available 10/05/2021 Mental Status Question Answer Note LastModified by Organization D etails LastModified Time Do you have difficulty concentrating, remembering or making decisions? No Information no t available 10/05/2021 Family History Relationship Description Onset Age of this Age Resolved Age Notes LastModified by Organization Details LastModified Time Father No current problems or disability Not available 10/05 14:44:11 Mother No current problems or disability Not available 10/05 14:44:11 Medical History Condition Response Depression Y Anxiety Y Hyperlipidemia Y Hypertension Y Gynecological HistoryNo gynecological history recorded. Obstetrics History GPAL:G 0 P 0 0 0 0 Past Encounters Encounter ID Performer Location Encounter Start Date Encounter Closed Date Diagnosis/Indication Diagnosis SNOMED-CT Code Diagnosis ICD10 Code Diagnosis Note [id number] [facility] [address] [place] [id number] 10/05/2021 14:02:17 10/05/2021 17:12:09 Major depressive disorder 868578957 F32.5 Peripheral vascular disease 688378981 I73.9 Dementia w ith behavioral disturbance 4249013050 103 F02.81 Hypertensive disorder 38 801640 I10 [id number] [facility] [address] [place] [id number] 11/16/2021 14:52:59 11/17/2021 17:48:38 Hypertensive disorder 30829517 I10 Supraventr icular tachycardia 8395574 I47.1 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 Memory impairment 207585 006 R41.3 Malaise and fatigue 2717 42612 R53.81 Dementia 96911273 F03.90 Health Concerns Section Related Observation LastModified by Organization Detai ls LastModified Time None Recorded Concern Status LastModified by Organization Details LastModified Time None Recorded Advance Directives Directive None Recorded Payers Encounter Date Sequence Insurance Name Policy Number Policy Torres Covered Member ID Torres Member ID Guarantor Name 10/05/2021 1 [employer] (MEDICARE REPLACEMENT/ ADVANTAGE - HMO) Maddi Armstrong Lien [id number] Maddi Nathaniel Emmanuel 11/16/2021 1 [employer] (MEDICARE REPLACEMENT/ ADVANTAGE - HMO) Maddi J Lien [id number] Maddi J Lien Notes Date Note Type Note Provider Name and Address Organization Details Recorded Time 10/05/2021 text/html Patient is here to establish care for new patient. RIRI DEXTER MD [address] [place], [address], [facility] 10/05/2021 15:12:51 11/16/2021 text/html Patient is here today for follow up on neurologist referral and getting labs done. RIRI DEXTER MD [address] [place], [address], [facility] 11/16/2021 16:32:30 OBGyn Episode No OBEpisode recorded.
[2024-05-04 20:12] VITALS: BP 116/71; PULSE 80; RESP 16; TEMP 36.6; O2SAT 99
--- OUTSIDE RECORDS SUMMARY | 2024-05-04 20:12 | XMS_ITS | Clinical Summary ---
Author Organization [facility] Address [address] [place] [address] Care Team Providers Care Senior Wind Turbine Technician Name Role Phone Eric Craft Primary Care Provider [phone] Allergies Active Allergy Reactions Criticality Noted Date [...] 01/16/2022 Assessment & Plan (01/24/2022 2:50 PM AMPOULE FILLER): HEALTHCARE MAINTENANCE updated Mixed hyperlipidemia 10/06/2019 Situational mixed anxiety and depressive disorde r 10/06/2019 Esophageal diverticulum 05/10/2018 Achalasia of esophagus 05/10/2018 Chronic blood loss anemia 05/09/2018 Spondylolisthesis, grade 2 08/17/2015 Spinal stenosis of lumbar re gion with neurogenic claudication 08/17/2015 Osteopenia 12/19/2010 Raynaud's disease 12/19/2010 Hypertension Assessment & Plan (02/08/2022 3:26 PM AMPOULE FILLER): Images from the original note were not included. This is a stable chronic condition. Monitor blood pressure, call if out of parameters as we discussed. Low sodium and caffeine diet. baby asa as discussed if applicable. Diet, exercise and weight reduction. Labs as ordered. F/U routine Assessment & Plan (01/24/2022 2:50 PM AMPOULE FILLER): Images from the original note were not included. This is a stable chronic condition. Monitor blood pressure, call if out of parameters as we discussed. Low sodium and caffeine diet. baby asa as discussed if applicable. Diet, exercise and weight reduction. Labs as ordered. F/U routine Alzheimer's dementia Assessment & Plan (02/08/2022 3:36 PM AMPOULE FILLER): Mild, increasing aricept, will follow, she is seen Psychiatry and Neurology down the road Assessment & Plan (01/24/2022 2:52 PM AMPOULE FILLER): Does not appers to be doing well per family, will do aditional work up Mild episode of recurrent major depressive disor jenny Assessment & Plan (02/08/2022 3:26 PM AMPOULE FILLER): Well controlled, CPM Assessment & Plan (01/24/2022 2:49 PM AMPOULE FILLER): Well controlled with no SI/HI, CPM, f/u routine Immunizations Immunization Administration Dates Next Due Influenza, Trivalent, High D ose, Split, Preservative Free, Intramuscular 01/22/2017,01/08/2015 Influenza, Trivalent, IM (MDV) 12/05/2013,2011 Moderna SARS-CoV-2 Monovalent Vaccination (12+ Y RS) 04/21/2020,03/19/2020 Pneumococcal Conjugate PCV 13 01/08/2015 Pneumococcal Polysaccharide PPV23 08/23/2016 Tdap 06/13/2012,05/20/2012 ZOSTER LIVE 03/29/2012 Surgical History Surgery Date Site/Laterality Comments SECTION HYSTERECTOMY ARM SURGERY Left HERNIA REPAIR SPINE SURGERY Medical History Medical History Date Comments Hypertension Family History Medical History Relation Name Comments Prostate cancer Father Stroke Father Alzheimer's disease Mother Stroke Mother Breast cancer Mother's Sister Breast cancer Sister Relation Name Status Comments Father Mother Mother's Sister Sister Social History Tobacco Use Types Packs/Day Years [...] on file Legal Sex Female 9:06 AM AMPOULE FILLER Gender Identity Female 01/17/2022 6:41 PM AMPOULE FILLER Sexual Orientation Straight 01/17/2022 6: 41 PM AMPOULE FILLER Obstetrics History Para Term AB IAB SAB Ectopic Multiple Livin g Live Births 2 Date Outcome GA Total Labor Labor/2nd/3rd Weight Sex Type Anes PTL Trinidad A1 A5 Name Clin Last Filed Vital Signs Vital Sign Reading Time Taken Comments Blood Pressure 129/74 01/03/2023 2:40 PM AMPOULE FILLER Pulse 79 01/03/2023 2:40 PM AMPOULE FILLER Temperature 36.4 C (97.5 F) 03/14/2022 10:55 AM AMPOULE FILLER Respiratory Rate 18 03/14/2022 10:55 AM AMPOULE FILLER Oxygen Saturation 99% 03/14/2022 10:55 AM AMPOULE FILLER Inhaled Oxygen Concentration - - Weight 61.7 kg (136 lb) 01/03/2023 2:40 PM AMPOULE FILLER Height 162.6 cm (5' 4 ) 01/03/2023 2:40 PM AMPOULE FILLER Body Mass Index 23.34 01/03/2023 2:40 PM AMPOULE FILLER Plan of Treatment Health Maintenance Due Date Last Done Comments Colon Cancer Screening-Colonoscopy 1950 Hepatitis B Screening 06/29/1967 Zoster Vaccine (2 of 3) 05/24/2012 03/29/2012 DTaP/Tdap/Td Vaccine (3 - Td or Tdap) 06/13/2022 06/13/2012, 05/20/2012 Depression Screening 01/17/2023 01/17/2022, 01/18/20 22 Fall Risk Assessment 01/17/2023 01/17/2022 Well Visit 65+ 01/17/2023 01/17/2022 Breast Cancer Screening-Mammogram 07/22/2023 023 Covid-19 Vaccine (3 - 2023-2 5 season) 2023 04/21/2020, 03/19/2020 Influenza Vaccine (#1) 2023 7, 01/08/2015, 12/05/2013, Additional history exists Osteoporosis Screening-Bone Density Scan 07/21/2024 07/21/2022 Pneumococcal vaccine 65+ Completed 08/23/2016, 12/21 Hepatitis C Screening Completed 01/17/2022 Procedures Procedure Name Priority Date/Time Associated Diagnosis Comments SCREENING MAMMOGRAM BILATERAL W SHWETA Schedule Routine, Read Routine (OP Routine) 07/21/2022 4:06 PM CDT Encounter for screening mammogram for malignant neoplasm of breast DEXA AXIAL SKELETON BONE DENSITY 1 OR MORE SITES Schedule Routine, Read Routine (OP Routine) 07/21/2022 3:59 PM CDT Menopause HEPATITIS C ANTIBODY Routine 01/17/2022 2:33 PM AMPOULE FILLER Need for hepatitis C screening test from [...] F with given history of screening. Postmenopausal Philosophy Faculty/Model: Hologic Horizon A (S/N [id number]) CLINICAL INFORMATION: Current height: 61.5 inches Maximum [...] Christopher Morgan M.D. MF: CEDRIC Report ID: [id number] Reading Location: [id number] Procedure Note Christopher Morgan MD - 07/22/2022 EXAM DESCRIPTION: DEXA AXIAL SKELETON BONE DENSITY 1 OR MORE SITES REASON FOR STUDY: 72 y/o year old F with given history of screening. Postmenopausal Philosophy Faculty/Model: Hologic Horizon A (S/N [id number]) CLINICAL INFORMATION: Current height: 61.5 inches Maximum [...] Christopher Morgan M.D. MF: CEDRIC Report ID: [id number] Reading Location: [id number] Eric RIVAS IMG DXA PROCEDURES Final Result * Hepatitis C antibody (01/17/2022 2:33 PM AMPOULE FILLER) Hep C Ab Nonreactive Nonreactive LOREE DICKINSON [...] revised on 2019. Blood 01/17/2022 2:33 PM AMPOULE FILLER 01/17/2022 5:01 PM AMPOULE FILLER Eric RIVAS LAB MICROBIOLOGY - GENERAL FRANCISCO HADDAD Final Result Performing Organization Address City/State/[facility] Co de Phone Number LOREE [address] [facility] Department [place] [address] from Last 3 Months or Most Recently Relevant to Health Maintenance Insurance HUMANA MEDICARE HMO HUMANA MEDICARE HMO HUMANA MEDICARE HMO Care Teams Senior Wind Turbine Technician Relationship Specialty Start Date End Date Eric Craft PA PCP - General Family Medicine 01/17/22
--- OUTSIDE RECORDS SUMMARY | 2024-05-04 20:12 | XMS_ITS | Clinical Summary ---
Author Organization [facility] Address [address] [place] [address] Care Team Providers Care Rate Manager Name Role Phone Eric Craft Primary Care Provider [phone] Allergies Active Allergy Reactions Criticality Noted Date Comments Cefuroxime Axetil Angioedema High 05/05/2011 Lisinopril Angioedema High 05/08/2011 Medications omega-3 fatty acids-fish oil 300-1,000 mg CapsuleIndicatio ns:Acute idiopathic gout involving toe of right foot Take by mouth daily. 8 Active multivitamin (DAILY-NIKUNJ) tablet Take 1 Tablet by mouth daily. 9 Active diclofenac sodium (VOLTAREN) 1 % gel Apply 2 Grams to affected area 4 times daily. Use on shoulder QID 100 Gram 2 Active FLUoxetine (PROzac) 20 mg capsule Take 1 Capsule (20 mg) by mouth daily. 30 Capsule 1 2 Active busPIRone (BUSPAR) 5 mg tablet Take 5 mg by mouth 2 times daily. Active donepeziL (ARICEPT) 5 mg tablet Take 10 mg by mouth daily at bedtime. Active atorvastatin (LIPITOR) 20 mg tablet Take 1 Tablet (20 mg) by mouth daily. 30 Tablet 1 3 Active thiamine mononitrate (VITAMIN B-1) 100 mg tablet Take 1 Tablet (100 mg) by mouth daily. 30 Tablet 1 3 Active Active Problems Problem Noted Date Diagnosed Date Speech disturbance 09/29/2022 Gait difficulty 09/29/2022 Acute metabolic encephalopathy 09/28/2022 Situational mixed anxiety and depressive disorde r 10/06/2019 Mixed hyperlipidemia 10/06/2019 Achalasia of esophagus 05/10/2018 Esophageal diverticulum 05/10/2018 Chronic blood loss anemia 05/09/2018 Benign hypertension 07/24/2016 Spondylolisthesis, grade 2 08/17/2015 Spinal stenosis of lumbar re gion with neurogenic claudication 08/17/2015 History of TIA (transient ischemic attack) and s troke 01/08/2015 GERD (gastroesophageal reflux disease) 4 Raynaud's disease 12/19/2010 Osteopenia 12/19/2010 Immunizations Immunization Administration Dates Next Due (ADACEL/BOOSTRIX)(10 YR UP) TDAP VACCINE, 0.5ML, IM 05/20/2012 (PFIZER LAURA)(12 YR UP PRIMA RY SERIES) COVID-19 VACCINE - EMERGENCY USE AUTHORIZATION, MRNA, LAURA(PF) 30 MCG/0.3 ML IM SUSP 05/25/2021 (PNEUMOVAX 23)(50 YRS UP) PN EUMOCOCCAL POLYSACCHARIDE (PPV23) 0.5 ML, IM 08/23/2016 (PREVNAR 13)(6 WKS UP) PNEUM OCOCCAL CONJUGATE (PCV13) 0.5 ML, IM 01/08/2015 (SPIKEVAX) (12 YRS UP PRIMAR Y SERIES) COVID-19 VACCINE - MRNA-1273(PF) 100 MCG/0.5 ML IM SUSP 04/21/2020,03/19/2020 Adacel Vaccine > 7 Yo IM 06/13/2012 INFLUENZA VACCINE HIGH DOSE QUADRIVALENT 65 YR UP PF IM 12/07/2020,11/13/2019,11/13/2019 Influenza Seasonal Unspecifi ed Formulation IM 12/05/2013,11/20/2011 Influenza Vaccine High Dose 65+ Yrs IM 7,01/08/2015 Zoster Vaccine Live SQ 03/29/2012 Family History Medical History Relation Name Comments Stroke Brother 1 her twin Hypertension Father Stroke Father Colon Cancer Maternal Aunt nori Heart Failure Mother Other Mother No Known Problems Sister 1 No Known Problems Sister 2 No Known Problems Sister 3 Relation Name Status Comments Brother 1 her twin Alive Brother 2 (Age 59) Daughter 1 Alive Daughter 2 Alive Father (Age 79) stroke Maternal Aunt nori Alive Mother 90, alzheimers, heart Sister 1 Alive Sister 2 Alive Sister 3 Alive Social History Tobacco Use Types Packs/Day Years Used Date Smoking Tobacco: Former Cigarettes Q uit: 02/19/1989 Smokeless Tobacco: Never Alcohol Use Standard Drinks/Week Comments Yes 0 (1 standard drink = 0.6 oz pur e alcohol) Feeling Safe Answer Date Recorded Are you in a relationship wi th someone who hurts you emotionally and/or physically? No 09/28/2022 Food Insecurity Answer Date Recorded Social/Environmental Concerns No concerns Transportation Needs Answer Date Record ed Social/Environmental Concerns No concerns Housing Stability Answer Date Recorded Social/Environmental Concerns No concerns Utility Needs Answer Date Recorded Social/Environmental Concerns No concerns Comments No Sex and Gender Information Value Date Recorded Sex Assigned at Not on file Legal Sex Female 3:32 PM HEALTH INFORMATION TECHNOLOGIST Gender Identity Not on file Sexual Orientation Not on file Last Filed Vital Signs Vital Sign Reading Time Taken Comments Blood Pressure 102/64 10/05/2022 12:00 PM CDT Pulse 88 10/05/2022 12:00 PM CDT Temperature 36.4 C (97.6 F) 10/05/2022 12:00 PM CDT Respiratory Rate 18 10/05/2022 12:00 PM CDT Oxygen Saturation 99% 10/05/2022 12:00 PM CDT Inhaled Oxygen Concentration - - Weight 66.3 kg (146 lb 1.6 oz) 09/29/2022 7:33 A M CDT Height 160 cm (5' 3 ) 09/29/2022 7:33 AM CDT Body Mass Index 25.88 09/29/2022 7:33 AM CDT Plan of Treatment Health Maintenance Due Date Last Done Comments FIT-DNA Q 3 years 1994 FIT/FOBT Q 1 year 1994 Flex Sig/CT Colonography Q 5 years 1994 RSV VACCINE (60+ or ) (1 - Risk 60-74 years 1-dose series) 2009 ZOSTER VACCINE (2 of 3) 05/24/2012 03/29/2012 DTAP/TDAP/TD VACCINES (3 - T d or Tdap) 06/13/2022 06/13/2012, 05/20/2012 COLORECTAL SCREENING 03/11/2023 03/11/2018, 03/11/2018, 07/22/2012, Additional history exists Colorectal Cancer Screening 03/11/2023 BREAST CANCER SCREENING 07/22/2023 07/22/19 23, 08/30/2021, 09/09/2020, Additional history exists INFLUENZA VACCINE (#1) 2023 1, 11/13/2019, 11/13/2019, Additional history exists COVID-19 Vaccine (2023-2 5 season) 2023 05/25/2021, 04/21/2020, 03/19/2020 OSTEOPOROSIS SCREENING 07/22/2027 3, 07/21/2022, 09/03/2018, Additional history exists PNEUMOCOCCAL VACCINE 50+ YEARS Completed 08/23/2016 , 01/08/2015 Medical Devices Implanted Type Area Mailing Jogger Device Identifier Shelf Expiration Date Model / Serial / Lot Allgrft Magnifuse Pl [id number] - [id number] Implanted:Q ty: 1 on 10/21/2015 by Moreno Rodas MD Biological N/A: Spine Lumbar [employer] [id number] 04/25/2017 [id number] / [id number] / Infuse Protein Kit [id number] - [id number] Implanted:Q ty: 1 on 10/21/2015 by Moreno Rodas MD Biological N/A: Spine Lumbar MED[employer]- SOFAMOR DANEK [id number] 05/20/2017 [id number] / / [id number] Mesh Phasix St 3in Rnd [id number] - [id number] Implanted:Q ty: 1 on 05/10/2018 by Garfield Mcgee MD Mesh N/A: Esophagus CR BARD- DAVOL INC 11/17/2019 [id number] / / [id number] Capsule Ph Testing Uribe [id number] - [id number] Implanted:Q ty: 1 on 03/11/2018 by Sergio Bennett, DO Other N/A: Esophagus MED[employer]IC COVIDIEN clinical pharmacy manager. GIVEN 01/09/2019 [id number] / [id number] / [id number] Bimal Mildred Vit Crv 4.5x35mm [id number] - [id number] Implanted:Q ty: 1 on 10/21/2015 by Moreno Rodas MD Bimal N/A: Spine Lumbar YOKASTA- SPINE 10/21/2015 [id number] / / [id number] Bimal Mildred Vit Crv 4.5x40mm [id number] - [id number] Implanted:Q ty: 1 on 10/21/2015 by Moreno Rodas MD Bimal N/A: Spine Lumbar YOKASTA- SPINE 10/21/2015 [id number] / / [id number] Screw 4.5xia Pa 5.5x40mm [id number] - [id number] Implanted:Q ty: 4 on 10/21/2015 by Moreno Rodas MD Screw N/A: Spine Lumbar YOKASTA- SPINE 10/21/2015 [id number] / / Sealant Floseal W/ Adptr 10ml [id number] - [id number] Implanted:Q ty: 1 on 10/21/2015 by Moreno Rodas MD Sealant N/A: Spine Lumbar ESCOBEDO- BIOSCIENCE 02/18/2017 [id number] / / [id number] Indigo Milderd 4.5mm [id number] - [id number] Implanted:Q ty: 4 on 10/21/2015 by Moreno Rodas MD Spine N/A: Spine Lumbar YOKASTA- SPINE 10/21/2015 [id number] / / [id number] Screw Left: Arm Description:Present on admis roberto per pt report Yokasta Tritanium Pl Cage Implanted:Q ty: 1 on 10/21/2015 by Moreno Rodas MD N/A: Spine Lumbar [id number] 05/18/2020 [id number] / / [id number] Procedures Procedure Name Priority Date/Time Associated Diagnosis Comments MAMMO SCREEN BILAT W OR WO CAD Routine 08/30/2021 XR DEXA BONE DENSITY AXIAL 1 OR MORE SITES Routine 09/03/2018 2:09 PM CDT Postmenopausal COLONOSCOPY REPORT Routine 03/11/2018 1: 15 PM HEALTH INFORMATION TECHNOLOGIST from Last 3 Months or Most Recently Relevant to Health Maintenance Results * MAMMO SCREEN BILAT W OR WO CAD (08/30/2021) Anatomical Region Laterality Modality Breast Bilateral Other us Abstract Provider MAMMO ORDERABLES Final Result * XR DEXA BONE DENSITY AXIAL 1 OR MORE SITES (09/03/2018 2:09 PM CDT) Anatomical Region Laterality Modality Other Impressions 09/03/2018 5:05 PM CDT Osteopenia of the proximal left femur and left femoral neck. The [place] National Osteoporosis Foundation recommends offering treatment choices to anyone with low bone density (osteopenia) whose FRAX score for hip fractures is 3% or greater or whose risk for other bone fractures is greater than 20%. [id number]/[facility] Narrative 09/03/2018 5:05 PM CDT PROCEDURE: XR DEXA BONE DENSITY AXIAL 1 OR MORE SITES DATE: 09/03/2018 2:09 PM REASON FOR STUDY: Postmenopausal female. COMPARISON: No prior studies. FINDINGS: Lumbar spine: Bone mineral density: 1.174 g/sq cm T score: 0 Z score: 1.7 Proximal left femur: Bone mineral density: 0.865 g/sq cm T score: -1.1 Z score: 0.3 Left femoral neck: Bone mineral density: 0.851 g/sq cm T score: -1.3 Z score: 0.3 FRAX questionnaire calculations: Risk of major osteoporotic fracture: 16.7% Risk of hip fracture: 2.6% Procedure Note Demetrio Yan MD - 07/09/2020 PROCEDURE: XR DEXA BONE DENSITY AXIAL 1 OR MORE SITES DATE: 09/03/2018 2:09 PM REASON FOR STUDY: Postmenopausal female. COMPARISON: No prior studies. FINDINGS: Lumbar spine: Bone mineral density: 1.174 g/sq cm T score: 0 Z score: 1.7 Proximal left femur: Bone mineral density: 0.865 g/sq cm T score: -1.1 Z score: 0.3 Left femoral neck: Bone mineral density: 0.851 g/sq cm T score: -1.3 Z score: 0.3 FRAX questionnaire calculations: Risk of major osteoporotic fracture: 16.7% Risk of hip fracture: 2.6% IMPRESSION Osteopenia of the proximal left femur and left femoral neck. The [place] National Osteoporosis Foundation recommends offering treatment choices to anyone with low bone density (osteopenia) whose FRAX score for hip fractures is 3% or greater or whose risk for other bone fractures is greater than 20%. [id number]/[facility] us Martina Alfaro SECOND GRADE TEACHER DIAGNOSTIC IMAGING ORD ERABLES Final Result * COLONOSCOPY REPORT (03/11/2018 1:15 PM HEALTH INFORMATION TECHNOLOGIST) 03/11/2018 1:15 PM HEALTH INFORMATION TECHNOLOGIST Sergio Bennett DO GI PROCEDURE ORDERABLE S Final Result Performing Organization Address City/State/[facility] Co de Phone Number [facility] from Last 3 Months or Most Recently Relevant to Health Maintenance Insurance [employer] [facility] Address: [address] [address] Advance Directives For more information, please contact: [phone] Documents on File Type Date Recorded Patient Renderer Expl anation Advance Directive POA 12/07/2020 10:21 AM Advance Directive POA Advance Directive Living Will 12/07/2020 10:20 AM Advance Directive Living Will * Full Code (Latest Code Status on File) Date Activated Date Inactivated Comments 09/28/2022 10:22 PM 10/05/2022 5:45 PM Care Teams Rate Manager Relationship Specialty Start Date End Date Eric Craft PA [address] [place] [phone] PCP - General Fishing Worker 09/29/22
--- NOTE | 2024-05-04 20:28 | PC.NURSE ---
Bed alarm placed under patient on arrival to room. Patient alert to self only. Patient denies any pain.
--- OUTSIDE RECORDS SUMMARY | 2024-05-04 21:17 | XMS_ITS | Referral Summary ---
Author Organization [facility] Address [address] [place] [phone] Care Team Providers Care Director Non Profit Name Role Phone Eric Craft Primary Care Provider [phone] Allergies Active Allergy Reactions Criticality Noted Date [...] 01/16/2022 Assessment & Plan (01/24/2022 2:50 PM PLANT MAINTENANCE SUPERVISOR): HEALTHCARE MAINTENANCE updated Mixed hyperlipidemia 10/06/2019 Situational mixed anxiety and depressive disorde r 10/06/2019 Esophageal diverticulum 05/10/2018 Achalasia of esophagus 05/10/2018 Chronic blood loss anemia 05/09/2018 Spondylolisthesis, grade 2 08/17/2015 Spinal stenosis of lumbar re gion with neurogenic claudication 08/17/2015 Osteopenia 12/19/2010 Raynaud's disease 12/19/2010 Hypertension Assessment & Plan (02/08/2022 3:26 PM PLANT MAINTENANCE SUPERVISOR): Images from the original note were not included. This is a stable chronic condition. Monitor blood pressure, call if out of parameters as we discussed. Low sodium and caffeine diet. baby asa as discussed if applicable. Diet, exercise and weight reduction. Labs as ordered. F/U routine Assessment & Plan (01/24/2022 2:50 PM PLANT MAINTENANCE SUPERVISOR): Images from the original note were not included. This is a stable chronic condition. Monitor blood pressure, call if out of parameters as we discussed. Low sodium and caffeine diet. baby asa as discussed if applicable. Diet, exercise and weight reduction. Labs as ordered. F/U routine Alzheimer's dementia Assessment & Plan (02/08/2022 3:36 PM PLANT MAINTENANCE SUPERVISOR): Mild, increasing aricept, will follow, she is seen Psychiatry and Neurology down the road Assessment & Plan (01/24/2022 2:52 PM PLANT MAINTENANCE SUPERVISOR): Does not appers to be doing well per family, will do aditional work up Mild episode of recurrent major depressive disor jenny Assessment & Plan (02/08/2022 3:26 PM PLANT MAINTENANCE SUPERVISOR): Well controlled, CPM Assessment & Plan (01/24/2022 2:49 PM PLANT MAINTENANCE SUPERVISOR): Well controlled with no SI/HI, CPM, f/u [...] on file Legal Sex Female 9:06 AM PLANT MAINTENANCE SUPERVISOR Gender Identity Female 01/17/2022 6:41 PM PLANT MAINTENANCE SUPERVISOR Sexual Orientation Straight 01/17/2022 6: 41 PM PLANT MAINTENANCE SUPERVISOR Last Filed Vital Signs Vital Sign Reading Time Taken Comments Blood Pressure 129/74 01/03/2023 2:40 PM PLANT MAINTENANCE SUPERVISOR Pulse 79 01/03/2023 2:40 PM PLANT MAINTENANCE SUPERVISOR Temperature 36.4 C (97.5 F) 03/14/2022 10:55 AM PLANT MAINTENANCE SUPERVISOR Respiratory Rate 18 03/14/2022 10:55 AM PLANT MAINTENANCE SUPERVISOR Oxygen Saturation 99% 03/14/2022 10:55 AM PLANT MAINTENANCE SUPERVISOR Inhaled Oxygen Concentration - - Weight 61.7 kg (136 lb) 01/03/2023 2:40 PM PLANT MAINTENANCE SUPERVISOR Height 162.6 cm (5' 4 ) 01/03/2023 2:40 PM PLANT MAINTENANCE SUPERVISOR Body Mass Index 23.34 01/03/2023 2:40 PM PLANT MAINTENANCE SUPERVISOR Plan of Treatment Not on file Procedures [...] HEPATITIS C ANTIBODY Routine 01/17/2022 2:33 PM PLANT MAINTENANCE SUPERVISOR Need for hepatitis C screening test from [...] F with given history of screening. Postmenopausal Bookkeeping Machine Mechanic/Model: Coupz A (S/N [id number]) CLINICAL INFORMATION: Current height: 61.5 inches Maximum [...] Christopher Morgan M.D. MF: CEDRIC Report ID: [id number] Reading Location: [id number] Procedure Note Christopher Morgan MD - 07/22/2022 EXAM DESCRIPTION: DEXA AXIAL SKELETON BONE DENSITY 1 OR MORE SITES REASON FOR STUDY: 72 y/o year old F with given history of screening. Postmenopausal Bookkeeping Machine Mechanic/Model: Coupz A (S/N [id number]) CLINICAL INFORMATION: Current height: 61.5 inches Maximum [...] Christopher Morgan M.D. MF: CEDRIC Report ID: [id number] Reading Location: [place] [address] Eric RIVAS IMG DXA PROCEDURES Final Result * Hepatitis C antibody (01/17/2022 2:33 PM PLANT MAINTENANCE SUPERVISOR) Hep C Ab Nonreactive Nonreactive LOREE DICKINSON [...] revised on 2019. Blood 01/17/2022 2:33 PM PLANT MAINTENANCE SUPERVISOR 01/17/2022 5:01 PM PLANT MAINTENANCE SUPERVISOR Eric R[facility]AS LAB MICRO[facility]OLOGY [facility] Final Result L[facility] [address] [facility] Department [place] [address] from Last 3 Months or Most Recently Relevant to Health Maintenance Insurance HUMANA MEDICARE HMO HUMANA MEDICARE HMO HUMANA MEDICARE HMO Care Teams Director Non Profit Relationship Specialty Start Date End Date Eric Craft PA PCP - General Family Medicine 01/17/22
--- OUTSIDE RECORDS SUMMARY | 2024-05-04 21:17 | XMS_ITS | Clinical Summary ---
Author Organization [facility] Address [address] [place] [id number] Care Team Providers Care Manager Dialysis Name Role Phone Eric Craft Primary Care Provider [phone] Allergies Active Allergy Reactions Criticality Noted Date [...] 01/16/2022 Assessment & Plan (01/24/2022 2:50 PM ASSEMBLY LINE DRIVER): HEALTHCARE MAINTENANCE updated Mixed hyperlipidemia 10/06/2019 Situational mixed anxiety and depressive disorde r 10/06/2019 Esophageal diverticulum 05/10/2018 Achalasia of esophagus 05/10/2018 Chronic blood loss anemia 05/09/2018 Spondylolisthesis, grade 2 08/17/2015 Spinal stenosis of lumbar re gion with neurogenic claudication 08/17/2015 Osteopenia 12/19/2010 Raynaud's disease 12/19/2010 Hypertension Assessment & Plan (02/08/2022 3:26 PM ASSEMBLY LINE DRIVER): Images from the original note were not included. This is a stable chronic condition. Monitor blood pressure, call if out of parameters as we discussed. Low sodium and caffeine diet. baby asa as discussed if applicable. Diet, exercise and weight reduction. Labs as ordered. F/U routine Assessment & Plan (01/24/2022 2:50 PM ASSEMBLY LINE DRIVER): Images from the original note were not included. This is a stable chronic condition. Monitor blood pressure, call if out of parameters as we discussed. Low sodium and caffeine diet. baby asa as discussed if applicable. Diet, exercise and weight reduction. Labs as ordered. F/U routine Alzheimer's dementia Assessment & Plan (02/08/2022 3:36 PM ASSEMBLY LINE DRIVER): Mild, increasing aricept, will follow, she is seen Psychiatry and Neurology down the road Assessment & Plan (01/24/2022 2:52 PM ASSEMBLY LINE DRIVER): Does not appers to be doing well per family, will do aditional work up Mild episode of recurrent major depressive disor jenny Assessment & Plan (02/08/2022 3:26 PM ASSEMBLY LINE DRIVER): Well controlled, CPM Assessment & Plan (01/24/2022 2:49 PM ASSEMBLY LINE DRIVER): Well controlled with no SI/HI, CPM, f/u [...] on file Legal Sex Female 9:06 AM ASSEMBLY LINE DRIVER Gender Identity Female 01/17/2022 6:41 PM ASSEMBLY LINE DRIVER Sexual Orientation Straight 01/17/2022 6: 41 PM ASSEMBLY LINE DRIVER Obstetrics History Para Term AB IAB SAB Ectopic Multiple Livin g Live Births 2 Date Outcome GA Total Labor Labor/2nd/3rd Weight Sex Type Anes PTL Trinidad A1 A5 Name Clin Last Filed Vital Signs Vital Sign Reading Time Taken Comments Blood Pressure 129/74 01/03/2023 2:40 PM ASSEMBLY LINE DRIVER Pulse 79 01/03/2023 2:40 PM ASSEMBLY LINE DRIVER Temperature 36.4 C (97.5 F) 03/14/2022 10:55 AM ASSEMBLY LINE DRIVER Respiratory Rate 18 03/14/2022 10:55 AM ASSEMBLY LINE DRIVER Oxygen Saturation 99% 03/14/2022 10:55 AM ASSEMBLY LINE DRIVER Inhaled Oxygen Concentration - - Weight 61.7 kg (136 lb) 01/03/2023 2:40 PM ASSEMBLY LINE DRIVER Height 162.6 cm (5' 4 ) 01/03/2023 2:40 PM ASSEMBLY LINE DRIVER Body Mass Index 23.34 01/03/2023 2:40 PM ASSEMBLY LINE DRIVER Plan of Treatment Health Maintenance Due Date [...] HEPATITIS C ANTIBODY Routine 01/17/2022 2:33 PM ASSEMBLY LINE DRIVER Need for hepatitis C screening test from [...] F with given history of screening. Postmenopausal Central Office Technician/Model: Hologic Horizon A (S/N [id number]) CLINICAL INFORMATION: Current height: 61.5 inches Maximum [...] Christopher Morgan M.D. MF: CEDRIC Report ID: [id number] Reading Location: [id number] Procedure Note Christpoher Morgan MD - 07/22/2022 EXAM DESCRIPTION: DEXA AXIAL SKELETON BONE DENSITY 1 OR MORE SITES REASON FOR STUDY: 72 y/o year old F with given history of screening. Postmenopausal Central Office Technician/Model: Hologic Horizon A (S/N [id number]) CLINICAL INFORMATION: Current height: 61.5 inches Maximum [...] Christopher Morgan M.D. MF: CEDRIC Report ID: [id number] Reading Location: [id number] Eric RIVAS IMG DXA PROCEDURES Final Result * Hepatitis C antibody (01/17/2022 2:33 PM ASSEMBLY LINE DRIVER) Hep C Ab Nonreactive Nonreactive LOREE DICKINSON [...] revised on 2019. Blood 01/17/2022 2:33 PM ASSEMBLY LINE DRIVER 01/17/2022 5:01 PM ASSEMBLY LINE DRIVER Eric RIVAS LAB MICROBIOLOGY - GENERAL FRANCISCO HADDAD Final Result Performing Organization Address City/State/[facility] Co de Phone Number LOREE [address] [facility] [place] [address] from Last 3 Months or Most Recently Relevant to Health Maintenance Insurance HUMANA MEDICARE HMO HUMANA MEDICARE HMO HUMANA MEDICARE HMO Care Teams Manager Dialysis Relationship Specialty Start Date End Date Eric Craft PA PCP - General Family Medicine 01/17/22
--- OUTSIDE RECORDS SUMMARY | 2024-05-04 21:17 | XMS_ITS | Clinical Summary ---
[facility] Address [address] [place] [address] Care Team Providers Care Rivet Tosser Name Role Phone Eric Craft Primary Care Provider [phone] Allergies Active Allergy Reactions Criticality Noted Date [...] on file Legal Sex Female 3:32 PM SUPERVISOR MODERN LANGUAGES Gender Identity Not on file Sexual Orientation [...] , 01/08/2015 Medical Devices Implanted Type Area Fur Cleaner Device Identifier Shelf Expiration Date Model / Serial / Lot Allgrft Magnifuse Pl [id number] - [id number] Implanted:Q ty: 1 on 10/21/2015 by Moreno Rodas MD Biological N/A: Spine Lumbar [employer] [id number] 04/25/2017 [id number] / [id number] / Infuse Protein Kit [id number] - [id number] Implanted:Q ty: 1 on 10/21/2015 by Moreno Rodas MD Biological N/A: Spine Lumbar MED[employer]IC- SOFAMOR DANEK [id number] 05/20/2017 [id number] / / [id number] Mesh [address] 3in Rnd [id number] - [id number] Implanted:Q ty: 1 on 05/10/2018 by Garfield Mcgee MD Mesh N/A: Esophagus CR BARD- DAVOL INC 11/17/2019 [id number] / / [id number] Capsule Ph Testing Uribe [id number] - [id number] Implanted:Q ty: 1 on 03/11/2018 by Sergio Bennett, DO Other N/A: Esophagus MEDTR[employer]IC COVIDIEN psychological operations. GIVEN 01/09/2019 [id number] / [id number] / [id number] Bimal Mildred Vit Crv 4.5x35mm [id number] - [id number] Implanted:Q ty: 1 on 10/21/2015 by Moreno Rodas MD Bimal N/A: Spine Lumbar YOKASTA- SPINE 10/21/2015 [id number] / / [id number] Bimal Mildred Vit Crv 4.5x40mm [id number] - [id number] Implanted:Q ty: 1 on 10/21/2015 by Moreno Rodas MD Bimal N/A: Spine Lumbar YOKASTA- SPINE 10/21/2015 [id number] / / [id number] Screw 4.5xia Pa 5.5x40mm [id number] - [id number] Implanted:Q ty: 4 on 10/21/2015 by Moreno Rodas MD Screw N/A: Spine Lumbar YOKASTA- SPINE 10/21/2015 [id number] / / Sealant Floseal W/ Adptr 10ml [id number] - [id number] Implanted:Q ty: 1 on 10/21/2015 by Moreno Rodas MD Sealant N/A: Spine Lumbar ESCOBEDO- BIOSCIENCE 02/18/2017 [id number] / / [id number] Indigo Mildred 4.5mm [id number] - [id number] Implanted:Q ty: 4 on 10/21/2015 by Moreno Rodas MD Spine N/A: Spine Lumbar YOKASTA- SPINE 10/21/2015 [id number] / / [id number] Screw Left: Arm Description:Present on admis roberto per pt report Yokasta Tritanium Pl Cage Implanted:Q ty: 1 on 10/21/2015 by Moreno Rodas MD N/A: Spine Lumbar [id number] 05/18/2020 [id number] / / [id number] Procedures Procedure Name Priority Date/Time Associated Diagnosis Comments MAMMO SCREEN BILAT W OR WO CAD Routine 08/30/2021 XR DEXA BONE DENSITY AXIAL 1 OR MORE SITES Routine 09/03/2018 2:09 PM CDT Postmenopausal COLONOSCOPY REPORT Routine 03/11/2018 1: 15 PM SUPERVISOR MODERN LANGUAGES from Last 3 Months or Most Recently [...] other bone fractures is greater than 20%. [id number]/[facility] Narrative 09/03/2018 5:05 PM CDT PROCEDURE: XR [...] other bone fractures is greater than 20%. [id number]/[facility] us Martina Alfaro GLOBAL POSITION SYSTEM TECHNICIAN DIAGNOSTIC IMAGING ORD ERABLES Final Result * COLONOSCOPY REPORT (03/11/2018 1:15 PM SUPERVISOR MODERN LANGUAGES) 03/11/2018 1:15 PM SUPERVISOR MODERN LANGUAGES Sergio Bennett DO GI PROCEDURE ORDERABLE S Final Result Performing Organization Address City/State/[facility] Co de Phone Number [facility] from Last 3 Months or Most Recently Relevant to Health Maintenance Insurance [employer] [facility] Address: [address] [address] Advance Directives For more information, please contact: [phone] Documents on File Type Date Recorded 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
--- NOTE | 2024-05-04 21:30 | ED_ITS ---
HPI - Fall General Chief Complaint: Fall Stated Complaint: fall, unwitnessed Time Seen by Provider: 05/04/24 20:54 Source: patient Mode of arrival: EMS Limitations: dementia History of Present Illness HPI Narrative: This is a 73 year old female that presents to the ER for an unwitnessed fall at her facility. Reportedly patient found on the floor at her facility. No complaints Related Data Home Medications ?Medication ?Instructions ?Recorded ?Confirmed ?Last Taken ?Type atorvastatin 20 mg tablet 20 mg PO DAILY 09/27/22 09/27/22 Unknown History buspirone 5 mg tablet 5 mg PO BID 09/27/22 09/27/22 Unknown History donepezil 10 mg tablet 10 mg PO HS 09/27/22 09/27/22 Unknown History fluoxetine 20 mg capsule 20 mg PO DAILY 09/27/22 09/27/22 Unknown History losartan 50 mg-hydrochlorothiazide 1 tablet PO DAILY 09/27/22 09/27/22 Unknown History 12.5 mg tablet Allergies Allergy/AdvReac Type Severity Reaction Status Date / Time Cephalosporins Allergy Unknown Unknown Verified 05/04/24 20:11 cefuroxime (From Ceftin) AdvReac Swelling Verified 05/04/24 20:11 of Lip/Tongue/Throat lisinopril AdvReac Swelling Verified 05/04/24 20:11 of Lip/Tongue/Throat Review of Systems Review of Systems: ROS unobtainable: Yes unobtainable due to medical condition PMFSH Past Medical History Medical History Dementia Family History Family History Other Unknown family medical history Social History Social History Social History: Has a daughter Smoking packs per day: 0.5 Smoking cigarettes per day: 10.0 Smoking status: Former smoker Tobacco type: cigarettes Alcohol intake: former Substance use: never Lack of Transportation: No Lack of Food: Never True Current Housing: I Have Housing Concerned About Future Housing: No Difficulty Paying Gas/Electric Bills: No Difficulty Paying for Meds: No Currently Unemployed: No Education: High School Diploma/GED Difficulty w/ Childcare or Family Care: No Living arrangements: assisted living Additional living arrangements comments: [facility] Spiritual care concerns: No Exam Narrative: GENERAL: Well-appearing, well-nourished, and in no acute distress. HEAD: Normocephalic, atraumatic. EYES: PERRLA and EOMI. ENT: Nares clear, no rhinorrhea or epistaxis. Mucous membranes moist. Oropharynx without tonsillar hypertrophy exudate or other lesions. Bilateral TMs pearly horan non-bulging NECK: Supple. No adenopathy or masses. CHEST: Clear to auscultation. No respiratory distress. No wheezes rales or rhonchi HEART: Regular rate and rhythm. No murmur heard. Normal peripheral pulses. ABDOMEN: Soft, nontender, nondistended, normal active bowel sounds. EXTREMITIES: Normal range of motion. No edema or obvious deformity. SKIN: Warm, dry, no rash. NEURO: No focal deficits. Alert and oriented x1. CN II-XII grossly intact PSYCH: Normal mood and affect Course Vital Signs Vital signs: Vital Signs Temperature 98 F 05/04/24 20:12 Pulse Rate 80 05/04/24 20:12 Respiratory Rate 16 05/04/24 20:12 Blood Pressure 116/71 05/04/24 20:12 Pulse Oximetry 99 05/04/24 20:12 Oxygen Delivery Room Air 05/04/24 20:12 Temperature 98 F 05/04/24 20:12 Pulse Rate 80 05/04/24 20:12 Respiratory Rate 16 05/04/24 20:12 Blood Pressure 116/71 05/04/24 20:12 Pulse Oximetry 99 05/04/24 20:12 Oxygen Delivery Room Air 05/04/24 20:12 MDM - Fall MDM Narrative Medical decision making narrative: Patient presents to the emergency department for an unwitnessed fall at her facility. No notable focal injuries. Patient is neurologically intact at her baseline. Her vitals are normal. CT brain, cervical spine without acute findings. Chest and pelvic x-rays without abnormalities. Will be discharged back to her facility Differential Diagnosis Differential diagnosis: Likely compression fracture, concussion without loss of consciousness and other (Contusion, muscle strain) Imaging Data Radiologist's impression: ITS Impressions Pelvis X-Ray 05/04/24 22:06 IMPRESSION: No acute osseous finding in the pelvis. Chest X-Ray 05/04/24 22:09 IMPRESSION: No acute cardiopulmonary process. Head CT 05/04/24 22:10 IMPRESSION: No acute intracranial process. Cervical Spine CT 05/04/24 22:14 IMPRESSION: No acute fracture or traumatic malalignment in the cervical spine. Critical Care Time Critical Care Time Critical Care Time: No Discharge Plan Discharge Clinical Impression: Fall Patient Disposition: NH Intermediate/Asst Living Condition: Stable Instructions: Fall Prevention for Older Adults (ED) Additional Instructions: Return to the emergency department if you experience fever, chest pain, shortness of breath, abdominal pain with nausea and vomiting, weakness, numbness, or any other symptoms that are concerning to you. Follow up with primary care doctor Patient Language: Afghan Prescriptions: No Action buspirone 5 mg Tablet 5 mg PO BID atorvastatin 20 mg Tablet 20 mg PO DAILY donepezil 10 mg Tablet 10 mg PO HS losartan-hydrochlorothiazide 50-12.5 mg Tablet 1 tablet PO DAILY fluoxetine 20 mg Capsule 20 mg PO DAILY acetaminophen 500 mg capsule 1,000 mg PO Q6H PRN (Reason: pain) Qty: 20 0RF acetaminophen 500 mg capsule 1,000 mg PO Q6H PRN (Reason: pain) Qty: 20 0RF sulfamethoxazole-trimethoprim 800-160 mg tablet 1 tablet PO Q12H Qty: 10 0RF Follow-up/Referrals: Tae Donnelly MD [Primary Care Provider] - Stand Alone Forms: Shelter Discharge
[2024-05-04 22:50] VITALS: BP 109/70; PULSE 55; PULSE 60; RESP 17; O2SAT 97; O2SAT 99
[2024-05-04 23:56] VITALS: BP 101/69; PULSE 56; RESP 18; O2SAT 96
== END 2024-05-05 ==
PROVIDERS: Emergency Provider Physician Assistant; PCP Family Medicine
DX: T14.90XA Injury, unspecified, initial encounter (principal); W19.XXXA Unspecified fall, initial encounter; F03.90 Unspecified dementia, unspecified severity, without behavioral disturbance, psychotic disturbance, mood disturbance, and anxiety; Z87.891 Personal history of nicotine dependence
CPT/HCPCS: 70450; 71045; 72125; 72170; 99284

== ENCOUNTER 2024-06-20 10:18 | Emergency (ER) | payer MEDICARE, SELFPAY ==
--- NOTE | ~2024-06-20 | CT_ITS ---
EXAMINATION: CT brain wo con DATE: 06/20/2024 10:46 INDICATION: Head injury TECHNIQUE: Computed tomography (CT) of the head was performed without intravenous contrast. Sagittal and coronal reconstructions were performed. The mA was adjusted according to patient size. Iterative reconstruction technique was employed. The dose-length product was 605.33 mGy-cm. COMPARISON: head CT dated 05/04/2024 FINDINGS: No fracture. No acute intracranial hemorrhage, acute infarction or abnormal extra axial fluid collect ion. There is mild scattered white matter hypoattenuation consistent with chronic small vessel ischem ic disease. Symmetric prominence of the sulci consistent with mild to moderate age-appropriate diffus e cerebral volume loss. No mass/mass effect. Changes of bilateral intraocular lens replacement. Winn es of bilateral intraocular lens replacement. The orbits, paranasal sinuses and mastoid air cells ar e normal. IMPRESSION: 1. No fracture or acute intracranial process. 2. Age-related changes including mild to moderate diffuse volume loss and mild scattered white matter hypoattenuation consistent with chronic small vessel ischemic disease.. Reviewed, dictated and finalized at location A. IMPRESSION: 1. No fracture or acute intracranial process. 2. Age-related changes including mild to moderate diffuse volume loss and mild scattered white matter hypoattenuation consistent with chronic small vessel isc hemic disease..
[2024-06-20 10:22] VITALS: BP 152/80; PULSE 86; RESP 16; TEMP 36.6; O2SAT 100
--- NOTE | 2024-06-20 10:34 | ED_ITS ---
HPI - Fall General Chief Complaint: Fall Stated Complaint: mult falls Time Seen by Provider: 06/20/24 10:22 History of Present Illness HPI Narrative: Pt reportedly fell at local [facility] today and struck head. Pt says yes to most questions so difficult to get history. Pt was reported not to lose consciousness. Pt is not on blood thinners. Related Data Home Medications ?Medication ?Instructions ?Recorded ?Confirmed ?Last Taken ?Type atorvastatin 20 mg tablet 20 mg PO DAILY 09/27/22 09/27/22 Unknown History buspirone 5 mg tablet 5 mg PO BID 09/27/22 09/27/22 Unknown History donepezil 10 mg tablet 10 mg PO HS 09/27/22 09/27/22 Unknown History fluoxetine 20 mg capsule 20 mg PO DAILY 09/27/22 09/27/22 Unknown History losartan 50 mg-hydrochlorothiazide 1 tablet PO DAILY 09/27/22 09/27/22 Unknown History 12.5 mg tablet Allergies Allergy/AdvReac Type Severity Reaction Status Date / Time Cephalosporins Allergy Unknown Unknown Verified 05/04/24 20:11 cefuroxime (From Ceftin) AdvReac Swelling Verified 05/04/24 20:11 of Lip/Tongue/Throat lisinopril AdvReac Swelling Verified 05/04/24 20:11 of Lip/Tongue/Throat Review of Systems Review of Systems: ROS unobtainable: Yes unobtainable due to mental status PMFSH Past Medical History Medical History Dementia Family History Family History Other Unknown family medical history Social History Social History Social History: Has a daughter Smoking packs per day: 0.5 Smoking cigarettes per day: 10.0 Smoking status: Former smoker Tobacco type: cigarettes Alcohol intake: former Substance use: never Lack of Transportation: No Lack of Food: Never True Current Housing: I Have Housing Concerned About Future Housing: No Difficulty Paying Gas/Electric Bills: No Difficulty Paying for Meds: No Currently Unemployed: No Education: High School Diploma/GED Difficulty w/ Childcare or Family Care: No Living arrangements: assisted living Additional living arrangements comments: [facility] Spiritual care concerns: No Exam Const: General: healthy appearing and no acute distress Nutritional Appearance: well nourished Limitations: altered mental status (baseline) HENMT: Head: normal to inspection Eyes: Pupils: Equal, round and reactive pupils present EOM: EOMs intact bilaterally Resp: Effort & Inspection: normal respiratory effort Auscultation: clear to auscultation bilaterally Cardio: Rate: regular rate Rhythm: regular rhythm GI: GI Palp: Yes Soft to palpation and No Tenderness to palpation present (GI) Auscultation: normal bowel sounds Back/Spine/Pelvis: Back: no CVA tenderness Skin: General skin exam: normal color Rashes: no rashes Wounds: no wounds Neuro: General: no focal motor deficits Speech: Abnormal speech present (slurred but is baseline) slurred Extrem: General: normal to inspection and no clubbing, cyanosis or edema Psych: Attitude: cooperative Course Vital Signs Vital signs: Vital Signs Temperature 97.8 F 06/20/24 10:22 Pulse Rate 86 06/20/24 10:22 Respiratory Rate 16 06/20/24 10:22 Blood Pressure 152/80 H 06/20/24 10:22 Pulse Oximetry 100 06/20/24 10:22 Oxygen Delivery Room Air 06/20/24 10:22 Temperature 97.8 F 06/20/24 11:45 Pulse Rate 74 06/20/24 11:45 Respiratory Rate 16 06/20/24 11:45 Blood Pressure 126/74 06/20/24 11:45 Pulse Oximetry 96 06/20/24 11:45 Oxygen Delivery Room Air 06/20/24 10:22 MDM - Fall MDM Narrative Medical decision making narrative: Pt reportedly fell and struck head at [facility] today. Pt baseline mental status. will CT brain. CT neg safe for discharge back to [facility]. Discharge Plan Discharge Clinical Impression: Head injury Patient Disposition: [facility] Long Term/Asst Living Condition: Stable Instructions: Antibiotic Form, Head Injury (ED) Patient Language: Ecuadorean Prescriptions: No Action buspirone 5 mg Tablet 5 mg PO BID atorvastatin 20 mg Tablet 20 mg PO DAILY donepezil 10 mg Tablet 10 mg PO HS losartan-hydrochlorothiazide 50-12.5 mg Tablet 1 tablet PO DAILY fluoxetine 20 mg Capsule 20 mg PO DAILY acetaminophen 500 mg capsule 1,000 mg PO Q6H PRN (Reason: pain) Qty: 20 0RF acetaminophen 500 mg capsule 1,000 mg PO Q6H PRN (Reason: pain) Qty: 20 0RF sulfamethoxazole-trimethoprim 800-160 mg tablet 1 tablet PO Q12H Qty: 10 0RF Follow-up/Referrals: Tae Donnelly MD [Primary Care Provider] -
[2024-06-20 11:45] VITALS: BP 126/74; PULSE 74; RESP 16; TEMP 36.6; O2SAT 96
--- NOTE | 2024-06-20 11:48 | PC.NURSE ---
Attempted to call report at [facility]. No answer - voicemail left.
--- OUTSIDE RECORDS SUMMARY | 2024-06-21 11:56 | XMS_ITS | Data Portability ---
Author Organization [place] - [facility] - Pako mcgowan, [facility] Address [address] [place] [address] Assessment Encounter Date Assessment Date Assessment LastModified [...] recorded. Lab lipid panel, serum 2021 022 [facility], [address] [place], [place] [address], [address], 3 04:28:48 CBC 2021 022 [facility], [address] [place], [place] [address], [address], 3 04:28:48 CMP, serum or plasma 2021 022 [facility], [address] [place], [place] [address], [address], 3 04:28:48 HbA1c (hemoglobin A1c), blood 2021 022 [facility], [address] [place], [place] [address], [address], 3 04:28:48 TSH, serum or plasma 2021 022 [facility], [address] [place] [address], [address], 3 04:28:49 T4, free, serum 2021 022 [facility] [place] [facility], [address] [place] [address], [address], 3 04:28:49 T3, total, serum 2021 022 [facility] [place] [facility], [address] [place] [address], [address], 3 04:28:49 vitamin D, 25-hydroxy, total, serum 2021 022 [facility], [address] [place] [address], [address], 3 04:28:49 vitamin B12, serum 2021 022 [facility], [address] [place] [address], [address], 3 04:28:50 Referral neuropsycho logist referral 2021 022 [facility] - Dr. Adolfo Juarez MD, [address] [place], [address], 3 04:28:50 neurologist referral 2021 [facility] - Dr. Adolfo Juarez MD, [address] [place], [address], 15:24:13 Procedures None recorded. Surgeries None recorded. Imaging None recorded. Medication Orders donepezil 5 mg tablet 2021 [facility], [address] [place], [address], 16:32:03 losartan 50 mg-hydrochl orothiazide 12.5 mg tablet 2021 [facility], [address] [facility], [place], [address], 15:12:16 Adult Low Dose Aspirin 81 mg tablet,zach yed release 2021 [facility], [address] [facility], [place], [address], 15:12:16 Patient TargetsNo targets recorded. Patient Instructions Encounter Date Encounter Id Patient Instructions Last Modified By Organization Details Last Modified Time 11/16/2021 [id number] home monitoring* agoddu Not availabl e 11/29/2021 15:07:30 Reason for Referral Neurologist Referral for Dem entia with behavioral disturbance Referring Physician: Riri Dexter [facility], Encounter Date: 10/05/2021 Neuropsychologist Referral f or Dementia Referring Physician: Riri Dexter [facility], Encounter Date: 11/16/2021 Problems Name Problem SNOMED Code Status Onset Date Resolution Date Notes Provider Name and Address Organization Details Recorded Time Essential hypertension 71961325 Active 2021 BARI Morris, [place] - [facility] - [facility] 14:43:29 Hyperlipidemia 47824248 Active 2021 BARI Morris null, [facility] - [facility] 14:43:43 Major depressive disorder 508708289 Active 2021 BRAI Morris, [facility] 2 14:43:50 Problem Notes None recorded. Medical Equipment None Reported. Allergies Allergen ID Allergen Name Allergen Category Reaction Reaction Severity Criticality Documentation Date Start Date Code Code System Note Provider Name and Address Organization Details Recorded Time 621782 cefuroxim e Not available Not available Not available Not available 10/05/2021 2194 RxNorm BARI Morris [facility] 2 14:42:11 070604 lisinopri l medicatio n Not available Not available Not available 10/05/2021 70602 RxNorm BARI Morris [facility] 2 14:43:05 Medications Name Sig Start Date [...] Updated DateTime 2 160.02 cm 26.8 kg/m2 21581.2 5 g 97.2 [degF] 82 /min 97 % 97 % 122 mm[Hg] 80 mm[Hg] BARI Morris [facility] 2 14:39:46 Date Recorded Body height Body mass index (BMI) Body weight Body temperature Heart rate Oxygen saturation Oxygen saturation in Arterial blood by Pulse oximetry Systolic blood pressure Diastolic blood pressure Provider Name and Address Organization Details Last Updated DateTime 160.02 cm 26.6 kg/m2 04574.5 6 g 97.8 [degF] 78 /min 99 % 99 % 140 mm[Hg] 80 mm[Hg] Margo LindsayBARI tucker [place] - [facility] - [place] 16:16:34 Social History Question Answer Notes LastModified by Organizat ion Details LastModified Time Tobacco Smoking Status Never Smoker Margo BRAI Wang null, [place] - [facility] - [place] 10/05/2021 14:45:06 What Is Your Level Of [...] available 10/05 14:44:11 Medical History Condition Response Hyperlipidemia Y Anxiety Y Hypertension Y Depression Y Gynecological HistoryNo gynecological history recorded. Obstetrics History GPAL:G 0 P 0 0 0 0 Past Encounters Encounter ID Performer Location Encounter Start Date Encounter Closed Date Diagnosis/Indication Diagnosis SNOMED-CT Code Diagnosis ICD10 Code Diagnosis Note [id number] MD Pierce RUSSDarrick [facility] [address] [place] [address] 10/05/2021 14:02:17 10/05/2021 17:12:09 Major depressive disorder 658306580 F32.5 Peripheral vascular disease 785433863 I73.9 Dementia w ith behavioral disturbance 0790888041 103 F02.81 Hypertensive disorder 38 537782 I10 [id number] MD Nereyda RUSS [facility] [address] [place] [address] 11/16/2021 14:52:59 11/17/2021 17:48:38 Hypertensive disorder 98517669 I10 Supraventr icular tachycardia 3579627 I47.1 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 Memory impairment 597209 006 R41.3 Malaise and fatigue 2717 16961 R53.81 Dementia 82403646 F03.90 Health Concerns Section Related Observation LastModified by Organization Detai ls LastModified Time None Recorded Concern Status LastModified by Organization Details LastModified Time None Recorded Advance Directives Directive None Recorded Payers Encounter Date Sequence Insurance Name Policy Number Policy Torres Covered Member ID Torres Member ID Guarantor Name 10/05/2021 1 [employer] (MEDICARE REPLACEMENT/ ADVANTAGE - HMO) Maddi Armstrong Lien [id number] Maddi Nathaniel Emmanuel 11/16/2021 1 [employer] (MEDICARE REPLACEMENT/ ADVANTAGE - HMO) Maddi Armstrong Lien [id number] Maddi J Lien Notes Date Note Type Note Provider Name and Address Organization Details Recorded Time 10/05/2021 text/html Patient is here to establish care for new patient. RIRI DEXTER MD [address] [place], [address], [facility] 10/05/2021 15:12:51 11/16/2021 text/html Patient is here today for follow up on neurologist referral and getting labs done. RIRI DEXTER MD [address] [place], [address], [facility] 11/16/2021 16:32:30 OBGyn Episode No OBEpisode recorded.
--- OUTSIDE RECORDS SUMMARY | 2024-06-21 11:56 | XMS_ITS | Referral Summary ---
Author Organization [facility] at [facility] Address [address] [place] [address] Care Team Providers Care Sprinkler Fitter Apprentice Name Role Phone Eric Craft Primary Care Provider [phone] Allergies Active Allergy Reactions Criticality Noted Date [...] 01/16/2022 Assessment & Plan (01/24/2022 2:50 PM MICROSOFT EXCHANGE ARCHITECT): HEALTHCARE MAINTENANCE updated Mixed hyperlipidemia 10/06/2019 Situational mixed anxiety and depressive disorde r 10/06/2019 Esophageal diverticulum 05/10/2018 Achalasia of esophagus 05/10/2018 Chronic blood loss anemia 05/09/2018 Spondylolisthesis, grade 2 08/17/2015 Spinal stenosis of lumbar re gion with neurogenic claudication 08/17/2015 Osteopenia 12/19/2010 Raynaud's disease 12/19/2010 Hypertension Assessment & Plan (02/08/2022 3:26 PM MICROSOFT EXCHANGE ARCHITECT): Images from the original note were not included. This is a stable chronic condition. Monitor blood pressure, call if out of parameters as we discussed. Low sodium and caffeine diet. baby asa as discussed if applicable. Diet, exercise and weight reduction. Labs as ordered. F/U routine Assessment & Plan (01/24/2022 2:50 PM MICROSOFT EXCHANGE ARCHITECT): Images from the original note were not included. This is a stable chronic condition. Monitor blood pressure, call if out of parameters as we discussed. Low sodium and caffeine diet. baby asa as discussed if applicable. Diet, exercise and weight reduction. Labs as ordered. F/U routine Alzheimer's dementia Assessment & Plan (02/08/2022 3:36 PM MICROSOFT EXCHANGE ARCHITECT): Mild, increasing aricept, will follow, she is seen Psychiatry and Neurology down the road Assessment & Plan (01/24/2022 2:52 PM MICROSOFT EXCHANGE ARCHITECT): Does not appers to be doing well per family, will do aditional work up Mild episode of recurrent major depressive disor jenny Assessment & Plan (02/08/2022 3:26 PM MICROSOFT EXCHANGE ARCHITECT): Well controlled, CPM Assessment & Plan (01/24/2022 2:49 PM MICROSOFT EXCHANGE ARCHITECT): Well controlled with no SI/HI, CPM, f/u [...] on file Legal Sex Female 9:06 AM MICROSOFT EXCHANGE ARCHITECT Gender Identity Female 01/17/2022 6:41 PM MICROSOFT EXCHANGE ARCHITECT Sexual Orientation Straight 01/17/2022 6: 41 PM MICROSOFT EXCHANGE ARCHITECT Last Filed Vital Signs Vital Sign Reading Time Taken Comments Blood Pressure 129/74 01/03/2023 2:40 PM MICROSOFT EXCHANGE ARCHITECT Pulse 79 01/03/2023 2:40 PM MICROSOFT EXCHANGE ARCHITECT Temperature 36.4 C (97.5 F) 03/14/2022 10:55 AM MICROSOFT EXCHANGE ARCHITECT Respiratory Rate 18 03/14/2022 10:55 AM MICROSOFT EXCHANGE ARCHITECT Oxygen Saturation 99% 03/14/2022 10:55 AM MICROSOFT EXCHANGE ARCHITECT Inhaled Oxygen Concentration - - Weight 61.7 kg (136 lb) 01/03/2023 2:40 PM MICROSOFT EXCHANGE ARCHITECT Height 162.6 cm (5' 4 ) 01/03/2023 2:40 PM MICROSOFT EXCHANGE ARCHITECT Body Mass Index 23.34 01/03/2023 2:40 PM MICROSOFT EXCHANGE ARCHITECT Plan of Treatment Not on file Procedures [...] HEPATITIS C ANTIBODY Routine 01/17/2022 2:33 PM MICROSOFT EXCHANGE ARCHITECT Need for hepatitis C screening test from [...] F with given history of screening. Postmenopausal Hand Sprayer/Model: [employer] A (S/N [id number]) CLINICAL INFORMATION: Current height: 61.5 inches Maximum [...] Christopher Morgan M.D. MF: CEDRIC Report ID: [id number] Reading Location: [id number] Procedure Note Christopher Morgan MD - 07/22/2022 EXAM DESCRIPTION: DEXA AXIAL SKELETON BONE DENSITY 1 OR MORE SITES REASON FOR STUDY: 72 y/o year old F with given history of screening. Postmenopausal Hand Sprayer/Model: [employer] A (S/N [id number]) CLINICAL INFORMATION: Current height: 61.5 inches Maximum [...] Christopher Morgan M.D. MF: CEDRIC Report ID: [id number] Reading Location: [place] [address] Eric RIVAS IMG DXA PROCEDURES Final Result * Hepatitis C antibody (01/17/2022 2:33 PM MICROSOFT EXCHANGE ARCHITECT) Hep C Ab Nonreactive Nonreactive LOREE DICKINSON [...] revised on 2019. Blood 01/17/2022 2:33 PM MICROSOFT EXCHANGE ARCHITECT 01/17/2022 5:01 PM MICROSOFT EXCHANGE ARCHITECT Eric RIVAS LAB MICROBIOLOGY - GENERAL [facility] Final Result LOREE [address] [facility] Department [place] [address] from Last 3 Months or Most Recently Relevant to Health Maintenance Insurance HUMANA MEDICARE HMO HUMANA MEDICARE HMO HUMANA MEDICARE HMO Care Teams Sprinkler Fitter Apprentice Relationship Specialty Start Date End Date Eric Craft PA PCP - General Family Medicine 01/17/22
--- OUTSIDE RECORDS SUMMARY | 2024-06-21 11:57 | XMS_ITS | Clinical Summary ---
[facility] Address [address] [place] [address] Care Team Providers Care Accessories Repairer Name Role Phone Eric Craft Primary Care Provider [phone] Allergies Active Allergy Reactions Criticality Noted Date [...] on file Legal Sex Female 3:32 PM GRISTMILL OPERATOR Gender Identity Not on file Sexual Orientation [...] 03/11/2023 BREAST CANCER SCREENING 07/22/2023 07/22/19 23, 07/21/2022, 08/30/2021, Additional history exists INFLUENZA VACCINE (#1) 2023 1, 11/13/2019, 11/13/2019, Additional history exists COVID-19 Vaccine (2023-2 5 season) 2023 05/25/2021, 04/21/2020, 03/19/2020 OSTEOPOROSIS SCREENING 07/22/2027 3, 07/21/2022, 09/03/2018, Additional history exists PNEUMOCOCCAL VACCINE 50+ YEARS Completed 08/23/2016 , 01/08/2015 Medical Devices Implanted Type Area Director Of Social Media Marketing Device Identifier Shelf Expiration Date Model / Serial / Lot Allgrft Magnifuse Pl [id number] - [id number] Implanted:Q ty: 1 on 10/21/2015 by Moreno Rodas MD Biological N/A: Spine Lumbar [employer] [id number] 04/25/2017 [id number] / [id number] / Infuse Protein Kit [id number] - [id number] Implanted:Q ty: 1 on 10/21/2015 by Moreno Rodas MD Biological N/A: Spine Lumbar MED[employer]- SOFAMOR DANEK [id number] 05/20/2017 [id number] / / [id number] Mesh Phasix St 3in Rnd [id number] - [id number] Implanted:Q ty: 1 on 05/10/2018 by Garfield Mcgee MD Mesh N/A: Esophagus CR BARD- DAVOL INC 11/17/2019 [id number] / / [id number] Capsule Ph Testing Uribe [id number] - [id number] Implanted:Q ty: 1 on 03/11/2018 by Sergio Bennett, DO Other N/A: Esophagus [employer] COVIDIEN endbander. GIVEN 01/09/2019 [id number] / [id number] / [id number] Bimal Mildred Vit Crv 4.5x35mm [id number] - [id number] Implanted:Q ty: 1 on 10/21/2015 by Moreno Rodas MD Bimal N/A: Spine Lumbar YOKASTA- SPINE 10/21/2015 [id number] / / [id number] Bimal Mildred Vit Crv 4.5x40mm [id number] - [id number] Implanted:Q ty: 1 on 10/21/2015 by Moreno Rodas MD Bimal N/A: Spine Lumbar YOKASTA- SPINE 10/21/2015 [id number] / / [id number] Screw 4.5xia Pa 5.5x40mm [id number] - [id number] Implanted:Q ty: 4 on 10/21/2015 by Moreno Rodas MD Screw N/A: Spine Lumbar YOKASTA- SPINE 10/21/2015 [id number] / / Sealant Floseal W/ Adptr 10ml [id number] - [id number] Implanted:Q ty: 1 on 10/21/2015 by Moreno Rodas MD Sealant N/A: Spine Lumbar ESCOBEDO- BIOSCIENCE 02/18/2017 [id number] / / [id number] Indigo Mildred 4.5mm [id number] - [id number] Implanted:Q ty: 4 on 10/21/2015 by Moreno Rodas MD Spine N/A: Spine Lumbar YOKASTA- SPINE 10/21/2015 [id number] / / [id number] Screw Left: Arm Description:Present on admis roberto per pt report Yokasta Tritanium Pl Cage Implanted:Q ty: 1 on 10/21/2015 by Moreno Rodas MD N/A: Spine Lumbar [id number] 05/18/2020 [id number] / / [id number] Procedures Procedure Name Priority Date/Time Associated Diagnosis Comments MAMMO SCREEN BILAT W OR WO CAD Routine 08/30/2021 XR DEXA BONE DENSITY AXIAL 1 OR MORE SITES Routine 09/03/2018 2:09 PM CDT Postmenopausal COLONOSCOPY REPORT Routine 03/11/2018 1: 15 PM GRISTMILL OPERATOR from Last 3 Months or Most Recently Relevant to Health Maintenance Results * MAMMO SCREEN BILAT W OR WO CAD (08/30/2021) Anatomical Region Laterality Modality Breast Bilateral Mammography us Abstract Provider MAMMO ORDERABLES Final Result [...] other bone fractures is greater than 20%. [id number]/[facility] Narrative 09/03/2018 5:05 PM CDT PROCEDURE: XR [...] other bone fractures is greater than 20%. [id number]/[facility] us Martina Alfaro TEXTILE SCREEN MAKER DIAGNOSTIC IMAGING ORD ERABLES Final Result * COLONOSCOPY REPORT (03/11/2018 1:15 PM GRISTMILL OPERATOR) 03/11/2018 1:15 PM GRISTMILL OPERATOR Sergio Bennett DO GI PROCEDURE ORDERABLE S Final Result Performing Organization Address City/State/[facility] Co de Phone Number [facility] from Last 3 Months or Most Recently Relevant to Health Maintenance Insurance [employer] F[employer]iary [facility] [place] Address: [address] [address] Advance Directives For more information, please contact: [phone] Documents on File Type Date Recorded Patient Housekeeper Manager Expl anation Advance Directive POA 12/07/2020 10:21 AM Advance Directive POA Advance Directive Living Will 12/07/2020 10:20 AM Advance Directive Living Will * Full Code (Latest Code Status on File) Date Activated Date Inactivated Comments 09/28/2022 10:22 PM 10/05/2022 5:45 PM Care Teams Accessories Repairer Relationship Specialty Start Date End Date Eric Craft PA [address] [place] [phone] PCP - General Handkerchief Cutter 09/29/22
--- OUTSIDE RECORDS SUMMARY | 2024-06-21 11:57 | XMS_ITS | Clinical Summary ---
Author Organization [facility] at the Medical Office Building Address [address] [place] [address] Care Team Providers Care Munitions Handler Supervisor Name Role Phone Eric Craft Primary Care Provider [phone] Allergies Active Allergy Reactions Criticality Noted Date [...] 01/16/2022 Assessment & Plan (01/24/2022 2:50 PM FEATHEREDGE MACHINE OPERATOR): HEALTHCARE MAINTENANCE updated Mixed hyperlipidemia 10/06/2019 Situational mixed anxiety and depressive disorde r 10/06/2019 Esophageal diverticulum 05/10/2018 Achalasia of esophagus 05/10/2018 Chronic blood loss anemia 05/09/2018 Spondylolisthesis, grade 2 08/17/2015 Spinal stenosis of lumbar re gion with neurogenic claudication 08/17/2015 Osteopenia 12/19/2010 Raynaud's disease 12/19/2010 Hypertension Assessment & Plan (02/08/2022 3:26 PM FEATHEREDGE MACHINE OPERATOR): Images from the original note were not included. This is a stable chronic condition. Monitor blood pressure, call if out of parameters as we discussed. Low sodium and caffeine diet. baby asa as discussed if applicable. Diet, exercise and weight reduction. Labs as ordered. F/U routine Assessment & Plan (01/24/2022 2:50 PM FEATHEREDGE MACHINE OPERATOR): Images from the original note were not included. This is a stable chronic condition. Monitor blood pressure, call if out of parameters as we discussed. Low sodium and caffeine diet. baby asa as discussed if applicable. Diet, exercise and weight reduction. Labs as ordered. F/U routine Alzheimer's dementia Assessment & Plan (02/08/2022 3:36 PM FEATHEREDGE MACHINE OPERATOR): Mild, increasing aricept, will follow, she is seen Psychiatry and Neurology down the road Assessment & Plan (01/24/2022 2:52 PM FEATHEREDGE MACHINE OPERATOR): Does not appers to be doing well per family, will do aditional work up Mild episode of recurrent major depressive disor jenny Assessment & Plan (02/08/2022 3:26 PM FEATHEREDGE MACHINE OPERATOR): Well controlled, CPM Assessment & Plan (01/24/2022 2:49 PM FEATHEREDGE MACHINE OPERATOR): Well controlled with no SI/HI, CPM, f/u [...] on file Legal Sex Female 9:06 AM FEATHEREDGE MACHINE OPERATOR Gender Identity Female 01/17/2022 6:41 PM FEATHEREDGE MACHINE OPERATOR Sexual Orientation Straight 01/17/2022 6: 41 PM FEATHEREDGE MACHINE OPERATOR Obstetrics History Para Term AB IAB SAB Ectopic Multiple Livin g Live Births 2 Date Outcome GA Total Labor Labor/2nd/3rd Weight Sex Type Anes PTL Trinidad A1 A5 Name Clin Last Filed Vital Signs Vital Sign Reading Time Taken Comments Blood Pressure 129/74 01/03/2023 2:40 PM FEATHEREDGE MACHINE OPERATOR Pulse 79 01/03/2023 2:40 PM FEATHEREDGE MACHINE OPERATOR Temperature 36.4 C (97.5 F) 03/14/2022 10:55 AM FEATHEREDGE MACHINE OPERATOR Respiratory Rate 18 03/14/2022 10:55 AM FEATHEREDGE MACHINE OPERATOR Oxygen Saturation 99% 03/14/2022 10:55 AM FEATHEREDGE MACHINE OPERATOR Inhaled Oxygen Concentration - - Weight 61.7 kg (136 lb) 01/03/2023 2:40 PM FEATHEREDGE MACHINE OPERATOR Height 162.6 cm (5' 4 ) 01/03/2023 2:40 PM FEATHEREDGE MACHINE OPERATOR Body Mass Index 23.34 01/03/2023 2:40 PM FEATHEREDGE MACHINE OPERATOR Plan of Treatment Health Maintenance Due Date [...] HEPATITIS C ANTIBODY Routine 01/17/2022 2:33 PM FEATHEREDGE MACHINE OPERATOR Need for hepatitis C screening test from [...] F with given history of screening. Postmenopausal Music Composition Teacher/Model: [employer] A (S/N [id number]) CLINICAL INFORMATION: Current height: 61.5 inches Maximum [...] Christopher Morgan M.D. MF: CEDRIC Report ID: [id number] Reading Location: [id number] Procedure Note Christopher Morgan MD - 07/22/2022 EXAM DESCRIPTION: DEXA AXIAL SKELETON BONE DENSITY 1 OR MORE SITES REASON FOR STUDY: 72 y/o year old F with given history of screening. Postmenopausal Music Composition Teacher/Model: [employer] A (S/N [id number]) CLINICAL INFORMATION: Current height: 61.5 inches Maximum [...] Christopher Morgan M.D. MF: CEDRIC Report ID: [id number] Reading Location: [id number] Eric IRVAS IMG DXA PROCEDURES Final Result * Hepatitis C antibody (01/17/2022 2:33 PM FEATHEREDGE MACHINE OPERATOR) Hep C Ab Nonreactive Nonreactive LOREE DICKINSON [...] revised on 2019. Blood 01/17/2022 2:33 PM FEATHEREDGE MACHINE OPERATOR 01/17/2022 5:01 PM FEATHEREDGE MACHINE OPERATOR Eric RIVAS LAB MICROBIOLOGY - GENERAL FRANCISCO HADDAD Final Result Performing Organization Address City/State/[facility] Co de Phone Number LOREE [address] [facility] Department [place] [address] from Last 3 Months or Most Recently Relevant to Health Maintenance Insurance HU[employer]NA MEDICARE HMO HUMANA MEDICARE HMO HUMANA MEDICARE HMO Care Teams Munitions Handler Supervisor Relationship Specialty Start Date End Date Eric Craft PA PCP - General Family Medicine 01/17/22
== END 2024-06-20 12:17 ==
PROVIDERS: Emergency Provider Emergency Medicine; PCP Family Medicine
DX: S09.90XA Unspecified injury of head, initial encounter (principal); F03.90 Unspecified dementia, unspecified severity, without behavioral disturbance, psychotic disturbance, mood disturbance, and anxiety; Z87.891 Personal history of nicotine dependence; Z79.899 Other long term (current) drug therapy; W19.XXXA Unspecified fall, initial encounter
CPT/HCPCS: 70450; 99284

== ENCOUNTER 2024-09-12 17:02 | Emergency (ER) | payer MEDICARE, SELFPAY ==
--- NOTE | ~2024-09-12 | CT_ITS ---
EXAMINATION: 1. CT facial & cervical spine wo DATE: 09/12/2024 18:06 INDICATION: Fall with head injury TECHNIQUE: 1. Computed tomography (CT) of the maxillofacial region and of the cervical spine were performed with out intravenous contrast. Sagittal and coronal reconstructions of both regions were obtained. Automat ed exposure control and iterative reconstruction technique were employed. The dose-length product was 165.14 mGy-cm. COMPARISON: 02/11/2024 FINDINGS: Maxillofacial CT: Small contusion along the left superior orbital rim. Stable appearance of possible old healed left na santhosh bone fracture. No acute maxillofacial fractures identified. Specifically the mandible, zygomatic arches and boone of the orbits and paranasal sinuses are all intact. Changes of bilateral intraocular lens replacement. Orbits are otherwise normal. Mild mucosal thickening in the inferior right maxilla ry sinus. Mastoid air cells and middle ear cavities are clear. Dental disease involving multiple dent al restorations. There are chronic periapical erosions about several of the teeth at the mandible and maxilla. Cervical spine CT: Unchanged mild cervicothoracic levocurvature and 2-3 mm anterolisthesis C4 on C5 and C7 on T1. Verteb ral body heights are normal. No acute fracture. Severe disc height loss at C5-C6 and C6-C7, moderate disc height loss at C4-C5 and mild disc height loss at C3-C4 and C7-T1. Disc bulges at C2-C3 and C3-C 4 and posterior disc osteophyte complex at C4-C5 through C6-C7 and to multilevel mild central canal s tenosis. There is also multilevel bilateral severe cervical facet and uncovertebral osteoarthritis. T his contributes to moderate neural foraminal stenosis on the right at C2-C3, bilaterally at C3-C4, C4 -C5 and C6-C7 and on the right at C5-C6. Mild neural foraminal stenosis at a few of the remaining cer vical levels. Atherosclerotic disease at the bilateral carotid bulbs, left greater than right. Cervic al soft tissues are otherwise unremarkable. Mild emphysema and pleural parenchymal scarring at the ap ices. IMPRESSION: 1. No acute maxillofacial fractures. 2. Severe cervical spondylosis with no acute osseous abnormality. Reviewed, dictated and finalized at location A.
--- NOTE | ~2024-09-12 | XR_ITS ---
EXAMINATION: XR chest 1V DATE: 09/12/2024 18:12 INDICATION: Fall TECHNIQUE: frontal view of the chest was obtained. COMPARISON: Chest radiograph dated 05/04/2024 FINDINGS: The lungs remain clear with no focal airspace opacities, pulmonary edema, pleural effusion or pneumot horax. Heart size is normal. Moderate thoracic spondylosis. Old healed fracture of the lateral right clavicle. No evident acute osseous abnormality. IMPRESSION: 1. No acute cardiopulmonary disease. Reviewed, dictated and finalized at location A.
--- NOTE | ~2024-09-12 | CT_ITS ---
EXAMINATION: CT brain wo con DATE: 09/12/2024 18:03 INDICATION: Fall with head injury TECHNIQUE: Computed tomography (CT) of the head was performed without intravenous contrast. Sagittal and coronal reconstructions were performed. The mA was adjusted according to patient size. Iterative reconstruction technique was employed. The dose-length product was 681.00 mGy-cm. COMPARISON: head CT dated 06/20/2024 FINDINGS: No fracture. No acute intracranial hemorrhage, acute infarction or abnormal extra axial fluid collect ion. Small old lacunar infarct versus prominent perivascular spaces at the anterior limb of the right internal capsule. There is mild scattered white matter hypoattenuation consistent with chronic small vessel ischemic disease. Symmetric prominence of the sulci and subarachnoid spaces overlying the con vexities consistent with mild to moderate age-appropriate diffuse cerebral volume loss. Ventricles ar e normal and symmetric. No mass/mass effect. Changes of bilateral intraocular lens replacement. Winn es of bilateral intraocular lens replacement. The orbits, paranasal sinuses and mastoid air cells ar e normal. IMPRESSION: 1. No fracture or acute intracranial process. 2. Small old lacunar infarct versus prominent perivascular space at the anterior limb of the right in ternal capsule. 3. Age-related changes including mild to moderate diffuse volume loss and mild scattered white matter hypoattenuation consistent with chronic small vessel ischemic disease Reviewed, dictated and finalized at location A. IMPRESSION: 1. No fracture or acute intracranial process. 2. Small old lacunar infarct versus prominent perivascular space at the anterio r limb of the right internal capsule. 3. Age-related changes including mild to moderate diffuse volume loss and mild scattered white matter hypoattenuation consistent with chronic small vessel isc hemic disease
--- NOTE | ~2024-09-12 | XR_ITS ---
EXAMINATION: XR pelvis 1-2V DATE: 09/12/2024 18:12 INDICATION: Fall TECHNIQUE: An anteroposterior view of the pelvis was obtained. COMPARISON: 05/04/2024 FINDINGS: Bone alignment is normal. Instrumented L4-L5 anterior and posterior spinal fusion with interbody fusi on device and bilateral vertical clay and pedicle screw fixation. No fracture. Mild bilateral hip and sacroiliac osteoarthritis. Moderate amount of gas and stool scattered throughout the visualized colon . IMPRESSION: 1. Mild bilateral hip and sacroiliac osteoarthritis. No acute osseous abnormality. 2. Instrumented L4-L5 anterior and posterior spinal fusion. Reviewed, dictated and finalized at location A. IMPRESSION: 1. Mild bilateral hip and sacroiliac osteoarthritis. No acute osseous abnormali ty. 2. Instrumented L4-L5 anterior and posterior spinal fusion.
--- OUTSIDE RECORDS SUMMARY | 2024-09-12 17:05 | XMS_ITS | Patient Health Record ---
Author Organization [facility] Address [address] [place] [address] Care Team Providers Care Senior Interactive Developer Name Role Phone Rocky Pitts Unavailable [phone] Reason For Referral No Information Medications Medication SIG (Take, Route, Frequency, Duration) Notes Start Date End Date Status Vitamin B-1 100 MG Oral 03/28/2023 Active Atorvastatin Calcium 20 MG Oral 03/28/2023 Active Sertraline HCl 100 MG Oral 03/28/2023 Active Multi-Vitamin Oral 03/28/2023 Activ e Memantine HCl 10 MG Oral 03/28/2023 Active busPIRone HCl 5 MG Oral 03/28/2023 Active QUEtiapine Fumarate 25 MG Oral 03/28/2023 Active Fish Oil 300-1,000 mg Oral *Pick strength-form from ByReadLaserLeap for eRX* 03/28/2023 Active Donepezil HCl 10 MG Oral 03/28/2023 Active Diclofenac Sodium 1% Transdermal 03/28/2023 Active Plan Of Treatment No Information Insurance Providers Payer Name Payer Address Payer Phone Subscriber Number Group Number Insured Name Patient Relationship to Insured Coverage Start Date Coverage End Date [employer] [address] [address] [place] [address] [id number] LILY HOLLOWAY Self - patient is the insured Medical (General) History Surgical History Surgery Date(Month/Year) Hysterectomy (28511) 02/19/1975 Other 03/12/1974 Any surgical history 01/24/1971
--- OUTSIDE RECORDS SUMMARY | 2024-09-12 17:06 | XMS_ITS | Data Portability ---
Author Organization [place] - [facility] - Pako mcgowan, [facility]_Formerly [facility] Address [address] [place] [address] Assessment Encounter Date Assessment Date Assessment LastModified [...] recorded. Lab lipid panel, serum 2021 022 [facility], [address] [place] [address], [address], 3 04:28:48 CBC 2021 022 [facility], [address] [place] [address] [place], [address], 3 04:28:48 CMP, serum or plasma 2021 022 [facility], [address] [place] [address] [place], [address], 3 04:28:48 HbA1c (hemoglobin A1c), blood 2021 022 [facility], [address] [place], [place] [address] [place], [address], 3 04:28:48 TSH, serum or plasma 2021 [facility] [place] [facility], [address] [place] [address], [address], 3 04:28:49 T4, free, serum 2021 [facility] [place] [facility], [address] [place] [address] [place], [address], 3 04:28:49 T3, total, serum 2021 [facility] [place] [facility], [address] [place] [address], [address], 3 04:28:49 vitamin D, 25-hydroxy, total, serum 2021 [facility], [address] [place] [address], [address], 3 04:28:49 vitamin B12, serum 2021 [facility], [address] [place] [address], [address], 3 04:28:50 Referral neuropsycho logist referral 2021 [facility] - Dr. Adolfo Juarez MD, [address], [place], [address], 3 04:28:50 neurologist referral 2021 [facility] - Dr. Adolfo Juarez MD, [address], [place], [address], 15:24:13 Procedures None recorded. Surgeries None recorded. Imaging None recorded. Medication Orders donepezil 5 mg tablet 2021 [facility], [address] [place], [address], 16:32:03 losartan 50 mg-hydrochl orothiazide 12.5 mg tablet 2021 [facility], [address], [place], [address], 15:12:16 Adult Low Dose Aspirin 81 mg tablet,zach yed release 2021 [facility], [address], [place], [address], 15:12:16 Patient TargetsNo targets recorded. Patient Instructions Encounter Date Encounter Id Patient Instructions Last Modified By Organization Details Last Modified Time 11/16/2021 [id number] home monitoring* agoddu Not availabl e 11/29/2021 15:07:30 Reason for Referral Neurologist Referral for Dem entia with behavioral disturbance Referring Physician: Riri Dexter [facility], Encounter Date: 10/05/2021 Neuropsychologist Referral f or Dementia Referring Physician: Riri Dexter [facility], Encounter Date: 11/16/2021 Problems Name Problem SNOMED Code Status Onset Date Resolution Date Notes Provider Name and Address Organization Details Recorded Time Essential hypertension 41761609 Active 2021 BARI Morris, [place] - [facility] [place] 14:43:29 Hyperlipidemia 20525422 Active 2021 BARI Morris null, [place] - [facility] [place] 14:43:43 Major depressive disorder 740435915 Active 2021 BARI Morris, [facility] 2 14:43:50 Problem Notes None recorded. Medical Equipment None Reported. Allergies Allergen ID Allergen Name Allergen Category Reaction Reaction Severity Criticality Documentation Date Start Date Code Code System Note Provider Name and Address Organization Details Recorded Time 740098 cefuroxim e Not available Not available Not available Not available 10/05/2021 2194 RxNorm BARI Morris [facility] 2 14:42:11 455166 lisinopri l medicatio n Not available Not available Not available 10/05/2021 75187 RxNorm BARI Morris [facility] 2 14:43:05 Medications Name Sig Start Date [...] in Arterial blood by Pulse oximetry Systolic And Diastolic Provider Name and Address Organization Details Last Updated DateTime 2 160.02 cm 26.8 kg/m2 76370.2 5 g 97.2 [degF] 82 /min 97 % 97 % 122/80 mm[Hg] BARI Morris [facility] 2 14:39:46 Date Recorded Body height Body mass index (BMI) Body weight Body temperature Heart rate Oxygen saturation Oxygen saturation in Arterial blood by Pulse oximetry Systolic And Diastolic Provider Name and Address Organization Details Last Updated DateTime 2 160.02 cm 26.6 kg/m2 67465.5 6 g 97.8 [degF] 78 /min 99 % 99 % 140/80 mm[Hg] BARI Morris [facility] 2 16:16:34 Social History Question Answer Notes LastModified by Kuliza Details LastModified Time Tobacco Smoking Status Never Smoker BARI Morris null, [facility] 10/05/2021 14:45:06 Are You Blind Or Do You Have [...] Seat Routinely? Yes Information not available 10/05/2021 Has Tobacco Cessation Counseling Been Provided? No Information not available 10/05/2021 Do You Have Difficulty Walking Or Climbing Stairs? No Information not available 10/05/2021 Sex: Female Functional Status Question Answer Note LastModified by Road Hero ion Details LastModified Time Do you use any illicit or recreational drugs? No Information not available 10/05/2021 Do you or have you ever used any other forms of tobacco or nicotine? No Information not available 10/05/2021 What is your level of alcohol consumption? Occasional Information not available 10/05/2021 Do you have difficulty doing errands alone? No Information not available 10/05/2021 Are you able to care for yourself independently? Yes Information not available 10/05/2021 Do you have difficulty dressing, bathing, grooming, or toileting? No Information not available 10/05/2021 Mental Status [...] 14:44:11 Medical History Condition Response Hyperlipidemia Y Hypertension Y Depression Y Gynecological HistoryNo gynecological history recorded. Obstetrics History GPAL:G 0 P 0 0 0 0 Past Encounters Encounter ID Performer Location Encounter Start Date Encounter Closed Date Diagnosis/Indication Diagnosis SNOMED-CT Code Diagnosis ICD10 Code Diagnosis Note [id number] [facility] [address] [place] [id number] 10/05/2021 14:02:17 10/05/2021 17:12:09 Major depressive disorder 970434962 F32.5 Peripheral vascular disease 622879742 I73.9 Dementia w ith behavioral disturbance 0625688579 103 F02.81 Hypertensive disorder 38 165266 I10 [id number] MD Nereyda [facility] [address] [place] [id number] 11/16/2021 14:52:59 11/17/2021 17:48:38 Hypertensive disorder 90295615 I10 Supraventr icular tachycardia 3671188 I47.1 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 Memory impairment 724202 006 R41.3 Malaise and fatigue 2717 00156 R53.81 Dementia 91543588 F03.90 Health Concerns Section Related Observation LastModified by Organization Detai ls LastModified Time None Recorded Concern Status LastModified by Organization Details LastModified Time None Recorded Advance Directives Directive None Recorded Payers Insurance Date Sequence Insurance Name Policy Number Policy Torres Covered Member ID Torres Member ID Guarantor Name 10/04/2013 1 [place] DIONE FIERROT (PPO) [id number] Wilner Aguileraoughby [id number] Maddi Armstrong [place] 09/12/2021 1 UMR (PPO) [id number] Maddi Aguileraoughby [id number] Maddi Aguileraoughby 01/01/2022 1 [employer] (MEDICARE REPLACEMENT/ADVA NTAGE - HMO) Maddi Aguileraoughby [id number] Maddi Aguileraoughby 09/12/2021 1 HUMANA Maddi Armstrong Lien [id number] Maddi J Lien Notes Date Note Type Note Provider Name and Address Organization Details Recorded Time 10/05/2021 text/html ROS as noted in the HPI Patient is here to establish care for new patient. RIRI DEXTER MD [address] [place], [address], [facility] 10/05/2021 15:12:51 11/16/2021 text/html ROS as noted in the HPI Patient is here today for follow up on neurologist referral and getting labs done. RIRI DEXTER MD [address] [place], [address], [facility] 11/16/2021 16:32:30 OBGyn Episode No OBEpisode recorded.
--- OUTSIDE RECORDS SUMMARY | 2024-09-12 17:06 | XMS_ITS | Referral Summary ---
Author Organization [facility] Address [address] [place] [address] Care Team Providers Care Ripening Room Operator Name Role Phone Eric Craft Primary Care Provider [phone] Allergies Active Allergy Reactions Criticality Noted Date [...] 01/16/2022 Assessment & Plan (01/24/2022 2:50 PM CHIEF CONTROLLER STATION): HEALTHCARE MAINTENANCE updated Mixed hyperlipidemia 10/06/2019 Situational mixed anxiety and depressive disorde r 10/06/2019 Esophageal diverticulum 05/10/2018 Achalasia of esophagus 05/10/2018 Chronic blood loss anemia 05/09/2018 Spondylolisthesis, grade 2 08/17/2015 Spinal stenosis of lumbar re gion with neurogenic claudication 08/17/2015 Osteopenia 12/19/2010 Raynaud's disease 12/19/2010 Hypertension Assessment & Plan (02/08/2022 3:26 PM CHIEF CONTROLLER STATION): Images from the original note were not included. This is a stable chronic condition. Monitor blood pressure, call if out of parameters as we discussed. Low sodium and caffeine diet. baby asa as discussed if applicable. Diet, exercise and weight reduction. Labs as ordered. F/U routine Assessment & Plan (01/24/2022 2:50 PM CHIEF CONTROLLER STATION): Images from the original note were not included. This is a stable chronic condition. Monitor blood pressure, call if out of parameters as we discussed. Low sodium and caffeine diet. baby asa as discussed if applicable. Diet, exercise and weight reduction. Labs as ordered. F/U routine Alzheimer's dementia Assessment & Plan (02/08/2022 3:36 PM CHIEF CONTROLLER STATION): Mild, increasing aricept, will follow, she is seen Psychiatry and Neurology down the road Assessment & Plan (01/24/2022 2:52 PM CHIEF CONTROLLER STATION): Does not appers to be doing well per family, will do aditional work up Mild episode of recurrent major depressive disor jenny Assessment & Plan (02/08/2022 3:26 PM CHIEF CONTROLLER STATION): Well controlled, CPM Assessment & Plan (01/24/2022 2:49 PM CHIEF CONTROLLER STATION): Well controlled with no SI/HI, CPM, f/u [...] on file Legal Sex Female 9:06 AM CHIEF CONTROLLER STATION Gender Identity Female 01/17/2022 6:41 PM CHIEF CONTROLLER STATION Sexual Orientation Straight 01/17/2022 6: 41 PM CHIEF CONTROLLER STATION Last Filed Vital Signs Vital Sign Reading Time Taken Comments Blood Pressure 129/74 01/03/2023 2:40 PM CHIEF CONTROLLER STATION Pulse 79 01/03/2023 2:40 PM CHIEF CONTROLLER STATION Temperature 36.4 C (97.5 F) 03/14/2022 10:55 AM CHIEF CONTROLLER STATION Respiratory Rate 18 03/14/2022 10:55 AM CHIEF CONTROLLER STATION Oxygen Saturation 99% 03/14/2022 10:55 AM CHIEF CONTROLLER STATION Inhaled Oxygen Concentration - - Weight 61.7 kg (136 lb) 01/03/2023 2:40 PM CHIEF CONTROLLER STATION Height 162.6 cm (5' 4) 01/03/2023 2:40 PM CHIEF CONTROLLER STATION Body Mass Index 23.34 01/03/2023 2:40 PM CHIEF CONTROLLER STATION Plan of Treatment Not on file Procedures [...] HEPATITIS C ANTIBODY Routine 01/17/2022 2:33 PM CHIEF CONTROLLER STATION Need for hepatitis C screening test from [...] F with given history of screening. Postmenopausal Assembler Gold Frame/Model: Co.Import A (S/N [id number]) CLINICAL INFORMATION: Current height: 61.5 inches Maximum [...] Christopher Morgan M.D. MF: CEDRIC Report ID: [id number] Reading Location: [id number] Procedure Note Christopher Morgan MD - 07/22/2022 EXAM DESCRIPTION: DEXA AXIAL SKELETON BONE DENSITY 1 OR MORE SITES REASON FOR STUDY: 72 y/o year old F with given history of screening. Postmenopausal Assembler Gold Frame/Model: Co.Import A (S/N [id number]) CLINICAL INFORMATION: Current height: 61.5 inches Maximum [...] Christopher Morgan M.D. MF: CEDRIC Report ID: [id number] Reading Location: [place] [address] Eric RIVAS IMG DXA PROCEDURES Final Result * Hepatitis C antibody (01/17/2022 2:33 PM CHIEF CONTROLLER STATION) Hep C Ab Nonreactive Nonreactive LOREE DICKINSON [...] revised on 2019. Blood 01/17/2022 2:33 PM CHIEF CONTROLLER STATION 01/17/2022 5:01 PM CHIEF CONTROLLER STATION Eric RIVAS LAB [facility] Final Result [place] [address] [facility] [facility] Department [place] [address] from Last 3 Months or Most Recently Relevant to Health Maintenance Insurance HUMANA MEDICARE HMO HUMANA MEDICARE HMO HUMANA MEDICARE HMO Care Teams Ripening Room Operator Relationship Specialty Start Date End Date Eric Craft PA PCP - General Family Medicine 01/17/22
--- OUTSIDE RECORDS SUMMARY | 2024-09-12 17:06 | XMS_ITS | Clinical Summary ---
[facility] Address [address] [place] [address] Care Team Providers Care Vest Baster Name Role Phone Eric Craft Primary Care Provider [phone] Allergies Active Allergy Reactions Criticality Noted Date [...] drink = 0.6 oz pur e alcohol) Comments No Sex and Gender Information Value Date Recorded Sex Assigned at Not on file Legal Sex Female 3:32 PM LENS POLISHER Gender Identity Not on file Sexual Orientation [...] A M CDT Height 160 cm (5' 3) 09/29/2022 7:33 AM CDT Body Mass Index 25.88 09/29/2022 7:33 AM CDT Plan of Treatment Health Maintenance Due Date Last Done Comments FIT-DNA Q 3 years 1994 FIT/FOBT Q 1 year 1994 Flex Sig/CT Colonography Q 5 years 1994 ZOSTER VACCINE (2 of 3) 05/24/2012 03/29/2012 DTAP/TDAP/TD VACCINES (3 - T d or Tdap) 06/13/2022 06/13/2012, 05/20/2012 COLORECTAL SCREENING 03/11/2023 03/11/2018, 03/11/2018, 07/22/2012, Additional history exists Colorectal Cancer Screening 03/11/2023 COVID-19 Vaccine (2023-2 5 season) 2023 05/25/2021, 04/21/2020, 03/19/2020 RSV VACCINE (60+ or ) (1 - 1-dose 75+ series) 2024 INFLUENZA VACCINE (#1) 2024 1, 11/13/2019, 11/13/2019, Additional history exists OSTEOPOROSIS SCREENING 07/22/2027 3, 07/21/2022, 09/03/2018, Additional history exists PNEUMOCOCCAL VACCINE 50+ YEARS Completed 08/23/2016 , 01/08/2015 Medical Devices Implanted Type Area Cannon Crewmember Device Identifier Shelf Expiration Date Model / Serial / Lot Allgrft Magnifuse Pl [id number] - [id number] Implanted:Q ty: 1 on 10/21/2015 by Moreno Rodas MD Biological N/A: Spine Lumbar [employer] [id number] 04/25/2017 [id number] / [id number] / Infuse Protein Kit Sm [id number] - [id number] Implanted:Q ty: 1 on 10/21/2015 by Moreno Rodas MD Biological N/A: Spine Lumbar MEDTRONIC- SOFAMOR DANEK [id number] 05/20/2017 [id number] / / [id number] Mesh Phasix St 3in Rnd [id number] - [id number] Implanted:Q ty: 1 on 05/10/2018 by Garfield Mcgee MD Mesh N/A: Esophagus CR BARD- DAVOL INC 11/17/2019 [id number] / / [id number] Capsule Ph Testing Uribe [id number] - [id number] Implanted:Q ty: 1 on 03/11/2018 by Sergio Bennett DO Other N/A: Esophagus MEDTRONIC COVIDIEN rubber block layer. GIVEN 01/09/2019 [id number] / [id number] / [id number] Bimal Mildred Vit Crv 4.5x35mm [id number] - [id number] Implanted:Q ty: 1 on 10/21/2015 by Moreno Rodas MD Bimal N/A: Spine Lumbar YOKASTA- SPINE 10/21/2015 [id number] / / [id number] Bimal Mildred Vit Crv 4.5x40mm [id number] - [id number] Implanted:Q ty: 1 on 10/21/2015 by Moreno Rodas MD Bimal N/A: Spine Lumbar YOKASTA- SPINE 10/21/2015 [id number] / / [id number] Screw 4.5xia Pa 5.5x40mm [id number] - [id number] Implanted:Q ty: 4 on 10/21/2015 by Moreno Rodas MD Screw N/A: Spine Lumbar YOKASTA- SPINE 10/21/2015 [id number] / / Sealant Floseal W/ Adptr 10ml [id number] - [id number] Implanted:Q ty: 1 on 10/21/2015 by Moreno Rodas MD Sealant N/A: Spine Lumbar ESCOBEDO- edPULSE 02/18/2017 [id number] / / [id number] Indigo Mildred 4.5mm [id number] - [id number] Implanted:Q ty: 4 on 10/21/2015 by Moreno Rodas MD Spine N/A: Spine Lumbar YOKASTA- SPINE 10/21/2015 [id number] / / [id number] Screw Left: Arm Description:Present on admis roberto per pt report Yokasta Tritanium Pl Cage Implanted:Q ty: 1 on 10/21/2015 by Moreno Rodas MD N/A: Spine Lumbar [id number] 05/18/2020 [id number] / / [id number] Procedures Procedure Name Priority Date/Time Associated Diagnosis Comments XR DEXA BONE DENSITY AXIAL 1 OR MORE SITES Routine 09/03/2018 2:09 PM CDT Postmenopausal COLONOSCOPY REPORT Routine 03/11/2018 1: 15 PM LENS POLISHER from Last 3 Months or Most Recently Relevant to Health Maintenance Results * XR DEXA BONE DENSITY AXIAL 1 [...] other bone fractures is greater than 20%. [id number]/[facility] Narrative 09/03/2018 5:05 PM CDT PROCEDURE: XR [...] other bone fractures is greater than 20%. [id number]/[facility] Martina Alfaro APRN DIAGNOSTIC IMAGING ORD ERABLES Final Result * COLONOSCOPY REPORT (03/11/2018 1:15 PM LENS POLISHER) 03/11/2018 1:15 PM LENS POLISHER Sergio Bennett DO GI PROCEDURE ORDERABLE S Final Result Performing Organization Address City/State/[facility] Co de Phone Number [facility] from Last 3 Months or Most Recently Relevant to Health Maintenance Insurance [employer] [facility] MCR Advance Directives For more information, please contact: [phone] Documents on File Type Date Recorded Patient Plate Drying Machine Tender Expl anation Advance Directive POA 12/07/2020 10:21 AM Advance Directive POA Advance Directive Living Will 12/07/2020 10:20 AM Advance Directive Living Will * Full Code (Latest Code Status on File) Date Activated Date Inactivated Comments 09/28/2022 10:22 PM 10/05/2022 5:45 PM Care Teams Vest Baster Relationship Specialty Start Date End Date Eric Craft PA [address] [place] [phone] PCP - General Grand Scribe 09/29/22
--- OUTSIDE RECORDS SUMMARY | 2024-09-12 17:06 | XMS_ITS | Clinical Summary ---
Author Organization [facility] at the Medical Office Building Address [address] [place] [address] Care Team Providers Care Bilingual Teacher Name Role Phone Eric Craft Primary Care Provider Allergies Active Allergy Reactions Criticality Noted Date [...] 01/16/2022 Assessment & Plan (01/24/2022 2:50 PM SALES PLANNING MANAGER): HEALTHCARE MAINTENANCE updated Mixed hyperlipidemia 10/06/2019 Situational mixed anxiety and depressive disorde r 10/06/2019 Esophageal diverticulum 05/10/2018 Achalasia of esophagus 05/10/2018 Chronic blood loss anemia 05/09/2018 Spondylolisthesis, grade 2 08/17/2015 Spinal stenosis of lumbar re gion with neurogenic claudication 08/17/2015 Osteopenia 12/19/2010 Raynaud's disease 12/19/2010 Hypertension Assessment & Plan (02/08/2022 3:26 PM SALES PLANNING MANAGER): Images from the original note were not included. This is a stable chronic condition. Monitor blood pressure, call if out of parameters as we discussed. Low sodium and caffeine diet. baby asa as discussed if applicable. Diet, exercise and weight reduction. Labs as ordered. F/U routine Assessment & Plan (01/24/2022 2:50 PM SALES PLANNING MANAGER): Images from the original note were not included. This is a stable chronic condition. Monitor blood pressure, call if out of parameters as we discussed. Low sodium and caffeine diet. baby asa as discussed if applicable. Diet, exercise and weight reduction. Labs as ordered. F/U routine Alzheimer's dementia Assessment & Plan (02/08/2022 3:36 PM SALES PLANNING MANAGER): Mild, increasing aricept, will follow, she is seen Psychiatry and Neurology down the road Assessment & Plan (01/24/2022 2:52 PM SALES PLANNING MANAGER): Does not appers to be doing well per family, will do aditional work up Mild episode of recurrent major depressive disor jenny Assessment & Plan (02/08/2022 3:26 PM SALES PLANNING MANAGER): Well controlled, CPM Assessment & Plan (01/24/2022 2:49 PM SALES PLANNING MANAGER): Well controlled with no SI/HI, CPM, f/u [...] on file Legal Sex Female 9:06 AM SALES PLANNING MANAGER Gender Identity Female 01/17/2022 6:41 PM SALES PLANNING MANAGER Sexual Orientation Straight 01/17/2022 6: 41 PM SALES PLANNING MANAGER Obstetrics History Para Term AB IAB SAB Ectopic Multiple Livin g Live Births 2 Date Outcome GA Total Labor Labor/2nd/3rd Weight Sex Type Anes PTL Trinidad A1 A5 Name Clin Last Filed Vital Signs Vital Sign Reading Time Taken Comments Blood Pressure 129/74 01/03/2023 2:40 PM SALES PLANNING MANAGER Pulse 79 01/03/2023 2:40 PM SALES PLANNING MANAGER Temperature 36.4 C (97.5 F) 03/14/2022 10:55 AM SALES PLANNING MANAGER Respiratory Rate 18 03/14/2022 10:55 AM SALES PLANNING MANAGER Oxygen Saturation 99% 03/14/2022 10:55 AM SALES PLANNING MANAGER Inhaled Oxygen Concentration - - Weight 61.7 kg (136 lb) 01/03/2023 2:40 PM SALES PLANNING MANAGER Height 162.6 cm (5' 4) 01/03/2023 2:40 PM SALES PLANNING MANAGER Body Mass Index 23.34 01/03/2023 2:40 PM SALES PLANNING MANAGER Plan of Treatment Health Maintenance Due Date Last Done Comments Colon Cancer Screening-Colonoscopy 1950 Hepatitis B Screening 06/29/1967 Zoster Vaccine (2 of 3) 05/24/2012 03/29/2012 DTaP/Tdap/Td Vaccine (3 - Td or Tdap) 06/13/2022 06/13/2012, 05/20/2012 Depression Screening 01/17/2023 01/17/2022, 01/18/20 Fall Risk Assessment 01/17/2023 01/17/2022 Well Visit 65+ 01/17/2023 01/17/2022 Covid-19 Vaccine (3 - 2023-2 5 season) 2023 04/21/2020, 03/19/2020 Osteoporosis Screening-Bone Density Scan 07/21/2024 07/21/2022 Influenza Vaccine (#1) 2024 7, 01/08/2015, 12/05/2013, Additional history exists Pneumococcal vaccine 65+ Completed 08/23/2016, 12/21 Hepatitis C Screening Completed 01/17/2022 Breast Cancer Screening-Mammogram Discontinued 023 Procedures Procedure Name Priority Date/Time Associated Diagnosis Comments SCREENING MAMMOGRAM BILATERAL W SHWETA Schedule Routine, Read Routine (OP Routine) 07/21/2022 4:06 PM CDT Encounter for screening mammogram for malignant neoplasm of breast DEXA AXIAL SKELETON BONE DENSITY 1 OR MORE SITES Schedule Routine, Read Routine (OP Routine) 07/21/2022 3:59 PM CDT Menopause HEPATITIS C ANTIBODY Routine 01/17/2022 2:33 PM SALES PLANNING MANAGER Need for hepatitis C screening test from [...] F with given history of screening. Postmenopausal Account Development Executive/Model: Hologic Horizon A (S/N [id number]) CLINICAL INFORMATION: Current height: 61.5 inches Maximum [...] Christopher Morgan M.D. MF: CEDRIC Report ID: [id number] Reading Location: [place] [address] Procedure Note Christopher Morgan MD - 07/22/2022 EXAM DESCRIPTION: DEXA AXIAL SKELETON BONE DENSITY 1 OR MORE SITES REASON FOR STUDY: 72 y/o year old F with given history of screening. Postmenopausal Account Development Executive/Model: Hologic Horizon A (S/N [id number]) CLINICAL INFORMATION: Current height: 61.5 inches Maximum [...] Christopher Morgan M.D. MF: CEDRIC Report ID: [id number] Reading Location: [id number] us Eric RIVAS IMG DXA PROCEDURES Final Result * Hepatitis C antibody (01/17/2022 2:33 PM SALES PLANNING MANAGER) Hep C Ab Nonreactive Nonreactive LOREE DICKINSON [...] revised on 2019. Blood 01/17/2022 2:33 PM SALES PLANNING MANAGER 01/17/2022 5:01 PM SALES PLANNING MANAGER Eric RIVAS LAB MICROBIOLOGY - GENERAL [facility] Final Result [place] [address] [facility] Department [place] [address] from Last 3 Months or Most Recently Relevant to Health Maintenance Insurance HUMANA MEDICARE HMO HUMANA MEDICARE HMO HUMANA MEDICARE HMO Care Teams Bilingual Teacher Relationship Specialty Start Date End Date Eric Craft PA PCP - General Family Medicine 01/17/22
[2024-09-12 17:12] VITALS: BP 151/76; PULSE 81; RESP 18; TEMP 36.9; O2SAT 99
--- NOTE | 2024-09-12 17:51 | ED.FALL ---
HPI - Fall General Chief Complaint: Fall Stated Complaint: Unwitnessed Fall Time Seen by Provider: 09/12/24 17:10 Source: patient and family Mode of arrival: EMS Limitations: dementia History of Present Illness HPI Narrative: This is a 74 year old female that presents to the ER for a fall today with head injury. Patient fell face forward onto the floor. Unable to obtain any further history, patient with advanced dementia. Patient is up-to-date on her tetanus vaccination per chart review. Related Data Home Medications ?Medication ?Instructions ?Recorded ?Confirmed ?Last Taken ?Type atorvastatin 20 mg tablet 20 mg PO DAILY 09/27/22 09/27/22 Unknown History buspirone 5 mg tablet 5 mg PO BID 09/27/22 09/27/22 Unknown History donepezil 10 mg tablet 10 mg PO HS 09/27/22 09/27/22 Unknown History fluoxetine 20 mg capsule 20 mg PO DAILY 09/27/22 09/27/22 Unknown History losartan 50 mg-hydrochlorothiazide 1 tablet PO DAILY 09/27/22 09/27/22 Unknown History 12.5 mg tablet Allergies Allergy/AdvReac Type Severity Reaction Status Date / Time Cephalosporins Allergy Unknown Unknown Verified 09/12/24 17:17 cefuroxime (From Ceftin) AdvReac Swelling Verified 09/12/24 17:17 of Lip/Tongue/Throat lisinopril AdvReac Swelling Verified 09/12/24 17:17 of Lip/Tongue/Throat Review of Systems Review of Systems: ROS unobtainable: Yes unobtainable due to medical condition PMFSH Past Medical History Medical History Dementia Family History Family History Other Unknown family medical history Social History Social History Social History: Has a daughter Smoking packs per day: 0.5 Smoking cigarettes per day: 10.0 Smoking status: Former smoker Tobacco type: cigarettes Alcohol intake: former Substance use: never Lack of Transportation: No Lack of Food: Never True Current Housing: I Have Housing Concerned About Future Housing: No Difficulty Paying Gas/Electric Bills: No Difficulty Paying for Meds: No Currently Unemployed: No Education: High School Diploma/GED Difficulty w/ Childcare or Family Care: No Living arrangements: assisted living Additional living arrangements comments: [facility] Spiritual care concerns: No Exam Narrative: GENERAL: Elderly, well-nourished, and in no acute distress. HEAD: Normocephalic. Large irregular laceration to the upper lip. Swelling about the nasal bridge EYES: PERRLA and EOMI. ENT: Nares clear, no rhinorrhea or epistaxis. Mucous membranes moist. Oropharynx without tonsillar hypertrophy exudate or other lesions. Bilateral TMs pearly horan non-bulging NECK: Supple. No adenopathy or masses. C collar in place CHEST: Clear to auscultation. No respiratory distress. No wheezes rales or rhonchi HEART: Regular rate and rhythm. No murmur heard. Normal peripheral pulses. ABDOMEN: Soft, nontender, nondistended, normal active bowel sounds. EXTREMITIES: Normal range of motion. No edema or obvious deformity. SKIN: Warm, dry, no rash. NEURO: No focal deficits. Alert and oriented x1. PSYCH: Normal mood and affect Course Vital Signs Vital signs: Vital Signs Temperature 98.5 F 09/12/24 17:12 Pulse Rate 81 09/12/24 17:12 Respiratory Rate 18 09/12/24 17:12 Blood Pressure 151/76 H 09/12/24 17:12 Pulse Oximetry 99 09/12/24 17:12 Oxygen Delivery Room Air 09/12/24 17:12 Temperature 98.5 F 09/12/24 17:12 Pulse Rate 81 09/12/24 17:12 Respiratory Rate 18 09/12/24 17:12 Blood Pressure 151/76 H 09/12/24 17:12 Pulse Oximetry 99 09/12/24 17:12 Oxygen Delivery Room Air 09/12/24 17:12 Procedures Laceration Laceration 1: Date: 09/12/24 Time: 21:13 Site: lip Size (cm): 3 Description: irregular Depth: simple, single layer Local Anesthetic: lidocaine 1% Amount of anesthesia used (mL): 2 Pre-repair: wound explored and irrigated ====== Skin Level ====== Skin layer closed with: other (Fast absorbing gut) Size (cm): 5-0 Number of sutures: 7 Technique: simple, interrupted ====== Subcutaneous Layer ====== ====== Muscle Layer ====== ====== Tendon Layer ====== MDM - Fall MDM Narrative Medical decision making narrative: Patient presents the emergency department after a fall with head injury. Patient is neurologically intact at her baseline. Her vitals are stable. CT brain, facial bones, cervical spine without acute findings. Chest and pelvic x-rays without acute findings. Patient's wound was cleansed and closed with sutures. She is up-to-date on tetanus vaccination. She is to follow up with primary provider. She was given warnings to return to the ER Differential Diagnosis Differential diagnosis: Likely concussion without loss of consciousness and other (Subdural hemorrhage, facial bone fracture, cervical spine fracture, laceration) Imaging Data Radiologist's impression: ITS Impressions Head CT 09/12/24 18:08 IMPRESSION: 1. No fracture or acute intracranial process. 2. Small old lacunar infarct versus prominent perivascular space at the anterior limb of the right internal capsule. 3. Age-related changes including mild to moderate diffuse volume loss and mild scattered white matter hypoattenuation consistent with chronic small vessel ischemic disease Head/Cervical Spine/Facial Bones CT 09/12/24 18:58 IMPRESSION: 1. No acute maxillofacial fractures. 2. Severe cervical spondylosis with no acute osseous abnormality. Chest X-Ray 09/12/24 19:23 IMPRESSION: 1. No acute cardiopulmonary disease. Pelvis X-Ray 09/12/24 19:24 IMPRESSION: 1. Mild bilateral hip and sacroiliac osteoarthritis. No acute osseous abnormality. 2. Instrumented L4-L5 anterior and posterior spinal fusion. Critical Care Time Critical Care Time Critical Care Time: No Discharge Plan Discharge Clinical Impression: Fall, Head injury, Laceration of lip Patient Disposition: NH Group Home/Asst Living Condition: Stable Instructions: Antibiotic Form, Laceration (ED), Soft Diet (ED), Head Injury (ED), Acute Dental Trauma (ED) Additional Instructions: Return to the emergency department if you experience fever, vomiting, redness or swelling of your wound, abnormal drainage from your wound, or any other symptoms that are concerning to you. Rest. Ice to the area. Tylenol and ibuprofen as needed for pain. Take oral antibiotic as prescribed. It would be good to do more of a soft diet the next couple of days to allow your cut to heal Follow-up with your primary care doctor for wound check Patient Language: Estonian Prescriptions: New acetaminophen 325 mg capsule 650 mg PO Q6H PRN (Reason: pain) Qty: 14 0RF ibuprofen 600 mg tablet 600 mg PO TID PRN (Reason: pain) Qty: 10 0RF amoxicillin-pot clavulanate 875-125 mg tablet 1 tablet PO Q12H 5 Days Qty: 10 0RF No Action buspirone 5 mg Tablet 5 mg PO BID atorvastatin 20 mg Tablet 20 mg PO DAILY donepezil 10 mg Tablet 10 mg PO HS losartan-hydrochlorothiazide 50-12.5 mg Tablet 1 tablet PO DAILY fluoxetine 20 mg Capsule 20 mg PO DAILY acetaminophen 500 mg capsule 1,000 mg PO Q6H PRN (Reason: pain) Qty: 20 0RF acetaminophen 500 mg capsule 1,000 mg PO Q6H PRN (Reason: pain) Qty: 20 0RF sulfamethoxazole-trimethoprim 800-160 mg tablet 1 tablet PO Q12H Qty: 10 0RF Follow-up/Referrals: Tae Donnelly MD [Primary Care Provider] - Stand Alone Forms: Custodial Discharge
--- OUTSIDE RECORDS SUMMARY | 2024-09-12 17:57 | XMS_ITS | Referral Summary ---
Author Organization [facility] at the Medical Office Building Address [address] [place] [id number] Care Team Providers Care Loom Overhauler Name Role Phone Eric Craft Primary Care Provider [phone] Allergies Active Allergy Reactions Criticality Noted Date [...] 01/16/2022 Assessment & Plan (01/24/2022 2:50 PM BENEFITS MANAGER): HEALTHCARE MAINTENANCE updated Mixed hyperlipidemia 10/06/2019 Situational mixed anxiety and depressive disorde r 10/06/2019 Esophageal diverticulum 05/10/2018 Achalasia of esophagus 05/10/2018 Chronic blood loss anemia 05/09/2018 Spondylolisthesis, grade 2 08/17/2015 Spinal stenosis of lumbar re gion with neurogenic claudication 08/17/2015 Osteopenia 12/19/2010 Raynaud's disease 12/19/2010 Hypertension Assessment & Plan (02/08/2022 3:26 PM BENEFITS MANAGER): Images from the original note were not included. This is a stable chronic condition. Monitor blood pressure, call if out of parameters as we discussed. Low sodium and caffeine diet. baby asa as discussed if applicable. Diet, exercise and weight reduction. Labs as ordered. F/U routine Assessment & Plan (01/24/2022 2:50 PM BENEFITS MANAGER): Images from the original note were not included. This is a stable chronic condition. Monitor blood pressure, call if out of parameters as we discussed. Low sodium and caffeine diet. baby asa as discussed if applicable. Diet, exercise and weight reduction. Labs as ordered. F/U routine Alzheimer's dementia Assessment & Plan (02/08/2022 3:36 PM BENEFITS MANAGER): Mild, increasing aricept, will follow, she is seen Psychiatry and Neurology down the road Assessment & Plan (01/24/2022 2:52 PM BENEFITS MANAGER): Does not appers to be doing well per family, will do aditional work up Mild episode of recurrent major depressive disor jenny Assessment & Plan (02/08/2022 3:26 PM BENEFITS MANAGER): Well controlled, CPM Assessment & Plan (01/24/2022 2:49 PM BENEFITS MANAGER): Well controlled with no SI/HI, CPM, [...] on file Legal Sex Female 9:06 AM BENEFITS MANAGER Gender Identity Female 01/17/2022 6:41 PM BENEFITS MANAGER Sexual Orientation Straight 01/17/2022 6: 41 PM BENEFITS MANAGER Last Filed Vital Signs Vital Sign Reading Time Taken Comments Blood Pressure 129/74 01/03/2023 2:40 PM BENEFITS MANAGER Pulse 79 01/03/2023 2:40 PM BENEFITS MANAGER Temperature 36.4 C (97.5 F) 03/14/2022 10:55 AM BENEFITS MANAGER Respiratory Rate 18 03/14/2022 10:55 AM BENEFITS MANAGER Oxygen Saturation 99% 03/14/2022 10:55 AM BENEFITS MANAGER Inhaled Oxygen Concentration - - Weight 61.7 kg (136 lb) 01/03/2023 2:40 PM BENEFITS MANAGER Height 162.6 cm (5' 4) 01/03/2023 2:40 PM BENEFITS MANAGER Body Mass Index 23.34 01/03/2023 2:40 PM BENEFITS MANAGER Plan of Treatment Not on file Procedures [...] HEPATITIS C ANTIBODY Routine 01/17/2022 2:33 PM BENEFITS MANAGER Need for hepatitis C screening test [...] F with given history of screening. Postmenopausal Sales Development Associate/Model: Taaz A (S/N [id number]) CLINICAL INFORMATION: Current height: 61.5 inches Maximum [...] Christopher Morgan M.D. MF: CEDRIC Report ID: [id number] Reading Location: [id number] Procedure Note Christopher Morgan MD - 07/22/2022 EXAM DESCRIPTION: DEXA AXIAL SKELETON BONE DENSITY 1 OR MORE SITES REASON FOR STUDY: 72 y/o year old F with given history of screening. Postmenopausal Sales Development Associate/Model: Taaz A (S/N [id number]) CLINICAL INFORMATION: Current height: 61.5 inches Maximum [...] Christopher Morgan M.D. MF: CEDRIC Report ID: [id number] Reading Location: [place] [address] Eric RIVAS IMG DXA PROCEDURES Final Result * Hepatitis C antibody (01/17/2022 2:33 PM BENEFITS MANAGER) Hep C Ab Nonreactive Nonreactive [place] [...] revised on 2019. Blood 01/17/2022 2:33 PM BENEFITS MANAGER 01/17/2022 5:01 PM BENEFITS MANAGER Eric RIVAS LAB MICROBIOLOGY [facility] Final Result [place] [address] [facility] Department [place] [address] from Last 3 Months or Most Recently Relevant to Health Maintenance Insurance HUMANA MEDICARE HMO HUMANA MEDICARE HMO HUMANA MEDICARE HMO Care Teams Loom Overhauler Relationship Specialty Start Date End Date Eric Craft PA PCP - General Family Medicine 01/17/22
--- OUTSIDE RECORDS SUMMARY | 2024-09-12 17:57 | XMS_ITS | Clinical Summary ---
Author Organization [facility] at the Medical Office Building Address [address] [place] [id number] Care Team Providers Care Cream Beater Name Role Phone Eric Craft Primary Care Provider [phone] Allergies Active Allergy Reactions Criticality Noted Date [...] 01/16/2022 Assessment & Plan (01/24/2022 2:50 PM SOAKERS SUPERVISOR): HEALTHCARE MAINTENANCE updated Mixed hyperlipidemia 10/06/2019 Situational mixed anxiety and depressive disorde r 10/06/2019 Esophageal diverticulum 05/10/2018 Achalasia of esophagus 05/10/2018 Chronic blood loss anemia 05/09/2018 Spondylolisthesis, grade 2 08/17/2015 Spinal stenosis of lumbar re gion with neurogenic claudication 08/17/2015 Osteopenia 12/19/2010 Raynaud's disease 12/19/2010 Hypertension Assessment & Plan (02/08/2022 3:26 PM SOAKERS SUPERVISOR): Images from the original note were not included. This is a stable chronic condition. Monitor blood pressure, call if out of parameters as we discussed. Low sodium and caffeine diet. baby asa as discussed if applicable. Diet, exercise and weight reduction. Labs as ordered. F/U routine Assessment & Plan (01/24/2022 2:50 PM SOAKERS SUPERVISOR): Images from the original note were not included. This is a stable chronic condition. Monitor blood pressure, call if out of parameters as we discussed. Low sodium and caffeine diet. baby asa as discussed if applicable. Diet, exercise and weight reduction. Labs as ordered. F/U routine Alzheimer's dementia Assessment & Plan (02/08/2022 3:36 PM SOAKERS SUPERVISOR): Mild, increasing aricept, will follow, she is seen Psychiatry and Neurology down the road Assessment & Plan (01/24/2022 2:52 PM SOAKERS SUPERVISOR): Does not appers to be doing well per family, will do aditional work up Mild episode of recurrent major depressive disor jenny Assessment & Plan (02/08/2022 3:26 PM SOAKERS SUPERVISOR): Well controlled, CPM Assessment & Plan (01/24/2022 2:49 PM SOAKERS SUPERVISOR): Well controlled with no SI/HI, CPM, [...] on file Legal Sex Female 9:06 AM SOAKERS SUPERVISOR Gender Identity Female 01/17/2022 6:41 PM SOAKERS SUPERVISOR Sexual Orientation Straight 01/17/2022 6: 41 PM SOAKERS SUPERVISOR Obstetrics History Para Term AB IAB SAB Ectopic Multiple Livin g Live Births 2 Date Outcome GA Total Labor Labor/2nd/3rd Weight Sex Type Anes PTL Trinidad A1 A5 Name Clin Last Filed Vital Signs Vital Sign Reading Time Taken Comments Blood Pressure 129/74 01/03/2023 2:40 PM SOAKERS SUPERVISOR Pulse 79 01/03/2023 2:40 PM SOAKERS SUPERVISOR Temperature 36.4 C (97.5 F) 03/14/2022 10:55 AM SOAKERS SUPERVISOR Respiratory Rate 18 03/14/2022 10:55 AM SOAKERS SUPERVISOR Oxygen Saturation 99% 03/14/2022 10:55 AM SOAKERS SUPERVISOR Inhaled Oxygen Concentration - - Weight 61.7 kg (136 lb) 01/03/2023 2:40 PM SOAKERS SUPERVISOR Height 162.6 cm (5' 4) 01/03/2023 2:40 PM SOAKERS SUPERVISOR Body Mass Index 23.34 01/03/2023 2:40 PM SOAKERS SUPERVISOR Plan of Treatment Health Maintenance Due Date [...] HEPATITIS C ANTIBODY Routine 01/17/2022 2:33 PM SOAKERS SUPERVISOR Need for hepatitis C screening test [...] F with given history of screening. Postmenopausal Front Desk Clerk/Model: Hologic Horizon A (S/N [id number]) CLINICAL INFORMATION: Current height: 61.5 inches Maximum [...] Christopher Morgan M.D. MF: CEDRIC Report ID: [id number] Reading Location: [place] [id number] Procedure Note Christopher Morgan MD - 07/22/2022 EXAM DESCRIPTION: DEXA AXIAL SKELETON BONE DENSITY 1 OR MORE SITES REASON FOR STUDY: 72 y/o year old F with given history of screening. Postmenopausal Front Desk Clerk/Model: Hologic Horizon A (S/N [id number]) CLINICAL INFORMATION: Current height: 61.5 inches Maximum [...] Christopher Morgan M.D. MF: CEDRIC Report ID: [id number] Reading Location: [id number] Eric RIVAS IMG DXA PROCEDURES Final Result * Hepatitis C antibody (01/17/2022 2:33 PM SOAKERS SUPERVISOR) Hep C Ab Nonreactive Nonreactive [place] [...] revised on 2019. Blood 01/17/2022 2:33 PM SOAKERS SUPERVISOR 01/17/2022 5:01 PM SOAKERS SUPERVISOR Eric RIVAS LAB MICROBIOLOGY - GENERAL [facility] Final Result [place] [address] [facility] Department [place] [address] from Last 3 Months or Most Recently Relevant to Health Maintenance Insurance HUMANA MEDICARE HMO HUMANA MEDICARE HMO HUMANA MEDICARE HMO Care Teams Cream Beater Relationship Specialty Start Date End Date Eric Craft PA PCP - General Family Medicine 01/17/22
--- OUTSIDE RECORDS SUMMARY | 2024-09-12 17:57 | XMS_ITS | Clinical Summary ---
[facility] Address [address] [place] [address] Care Team Providers Care Research Fellow Name Role Phone Eric Craft Primary Care Provider [phone] Allergies Active Allergy Reactions Criticality Noted Date [...] on file Legal Sex Female 3:32 PM MANUFACTURING SUPERVISOR Gender Identity Not on file Sexual Orientation [...] , 01/08/2015 Medical Devices Implanted Type Area Production Sorter Device Identifier Shelf Expiration Date Model / Serial / Lot Allgrft Magnifuse Pl [id number] - [id number] Implanted:Q ty: 1 on 10/21/2015 by Moreno Rodas MD Biological N/A: Spine Lumbar [employer] [id number] 04/25/2017 [id number] / [id number] / Infuse Protein Kit Sm [id number] - [id number] Implanted:Q ty: 1 on 10/21/2015 by Moreno Rodas MD Biological N/A: Spine Lumbar [employer]- SOFAMOR DANEK [id number] 05/20/2017 [id number] / / [id number] Mesh Phasix St 3in Rnd [id number] - [id number] Implanted:Q ty: 1 on 05/10/2018 by Garfield Mcgee MD Mesh N/A: Esophagus CR BARD- DAVOL INC 11/17/2019 [id number] / / [id number] Capsule Ph Testing Uribe [id number] - [id number] Implanted:Q ty: 1 on 03/11/2018 by Sergio Bennett DO Other N/A: Esophagus [employer] COVIDIEN copy center operator. GIVEN 01/09/2019 [id number] / [id number] / [id number] Bimal Mildred Vit Crv 4.5x35mm [id number] - [id number] Implanted:Q ty: 1 on 10/21/2015 by Moreno Rodas MD Bimal N/A: Spine Lumbar YOKASTA- SPINE 10/21/2015 [id number] / / [id number] Bimal Mildred Vit Crv 4.5x40mm [id number] - [id number] Implanted:Q ty: 1 on 10/21/2015 by Moreno Rodas MD Bimal N/A: Spine Lumbar YOKASTA- SPINE 10/21/2015 [id number] / / [id number] Screw 4.5xia Pa 5.5x40mm [id number] - [id number] Implanted:Q ty: 4 on 10/21/2015 by Moreno Rodas MD Screw N/A: Spine Lumbar YOKASTA- SPINE 10/21/2015 [id number] / / Sealant Floseal W/ Adptr 10ml [id number] - [id number] Implanted:Q ty: 1 on 10/21/2015 by Moreno Rodas MD Sealant N/A: Spine Lumbar ESCOBEDO- [employer] 02/18/2017 [id number] / / [id number] Indigo Mildred 4.5mm [id number] - [id number] Implanted:Q ty: 4 on 10/21/2015 by Moerno Rodas MD Spine N/A: Spine Lumbar YOKASTA- SPINE 10/21/2015 [id number] / / [id number] Screw Left: Arm Description:Present on admis roberto per pt report Yokasta Tritanium Pl Cage Implanted:Q ty: 1 on 10/21/2015 by Moreno Rodas MD N/A: Spine Lumbar [id number] 05/18/2020 [id number] / / [id number] Procedures Procedure Name Priority Date/Time Associated Diagnosis Comments XR DEXA BONE DENSITY AXIAL 1 OR MORE SITES Routine 09/03/2018 2:09 PM CDT Postmenopausal COLONOSCOPY REPORT Routine 03/11/2018 1: 15 PM MANUFACTURING SUPERVISOR from Last 3 Months or Most Recently [...] other bone fractures is greater than 20%. [id number]/[facility] Narrative 09/03/2018 5:05 PM CDT PROCEDURE: [...] other bone fractures is greater than 20%. [id number]/[facility] Martina Alfaro APRN DIAGNOSTIC IMAGING ORD ERABLES Final Result * COLONOSCOPY REPORT (03/11/2018 1:15 PM MANUFACTURING SUPERVISOR) 03/11/2018 1:15 PM MANUFACTURING SUPERVISOR Sergio Bennett DO GI PROCEDURE ORDERABLE S Final Result Performing Organization Address City/State/[facility] Co de Phone Number [facility] from Last 3 Months or Most Recently Relevant to Health Maintenance Insurance [employer] [facility] MCR Advance Directives For more information, please contact: [phone] Documents on File Type Date Recorded Patient Welding Technician Expl anation Advance Directive POA 12/07/2020 10:21 AM Advance Directive POA Advance Directive Living Will 12/07/2020 10:20 AM Advance Directive Living Will * Full Code (Latest Code Status on File) Date Activated Date Inactivated Comments 09/28/2022 10:22 PM 10/05/2022 5:45 PM Care Teams Research Fellow Relationship Specialty Start Date End Date Eric Craft PA [address] [place] [phone] PCP - General Flexboard Operator 09/29/22
[2024-09-12] MEDS: ONDANSETRON INJ 4 MG/2 ML VIAL IV PUSH (18:14)
[2024-09-12] MEDS: MORPHINE SULFATE (*CRX) 2 MG/ML INJ IV PUSH (18:14)
[2024-09-12 20:05] VITALS: BP 123/80; PULSE 76; RESP 14; O2SAT 99
[2024-09-12] MEDS: LORazepam INJ (*CRX) 2 MG/ML VIAL 1 MG IV PUSH (20:05)
[2024-09-12] MEDS: ACETAMINOPHEN 500 MG TABLET 1000 MG PO (21:36)
[2024-09-12 21:56] VITALS: BP 126/76; PULSE 74; RESP 17; O2SAT 100
--- NOTE | 2024-09-12 22:03 | PC.NURSE ---
This RN spoke with Brightly [facility] and updated faciltiy with pt arrival
[2024-09-12 22:12] VITALS: BP 126/76; PULSE 74; RESP 17; O2SAT 100
== END 2024-09-12 22:14 ==
PROVIDERS: Emergency Provider Physician Assistant; PCP Family Medicine
DX: S01.511A Laceration without foreign body of lip, initial encounter (principal); F03.90 Unspecified dementia, unspecified severity, without behavioral disturbance, psychotic disturbance, mood disturbance, and anxiety; Z87.891 Personal history of nicotine dependence; M47.812 Spondylosis without myelopathy or radiculopathy, cervical region; M46.1 Sacroiliitis, not elsewhere classified; M16.0 Bilateral primary osteoarthritis of hip; Z98.1 Arthrodesis status; W19.XXXA Unspecified fall, initial encounter
CPT/HCPCS: 12011; 70450; 70486; 71045; 72125; 72170; 96374; 96375; 99284; A9270; J2060; J2270; J2405; L0140